=== PATIENT | male | born 1940 | race Caucasian/White ===

== ENCOUNTER 2017-08-04 20:34 | Emergency (ER) | payer OTHER, SELFPAY ==
[~2017-08-04] VITALS: Ht 177.8 cm; Wt 124.7 kg
[~2017-08-04 20:34] MED LIST: ACCUNEB1.25 MG/3; ACETAMINOPHEN325 M1 PO; ALBUTEROL INH; ALBUTEROL2.5 MG/31 INH; ALEVE220 M1 PO; ALLEGRA180 MG PO; AMBIEN 10 MG TA10 MG PO; AMITRIPTYLINE H25 M2 PO; AMOXICILLIN 50500 M1 PO; ANUSOL1 EACH RC; ASPIRIN EC81 M1; ASPIRIN EC81 M1 PO; ATORVASTATIN CA40 MG PO; AUGMENTIN 875875 MG PO; AZITHROMYCIN 2250 MG PO; BAYER CHEWABLE81 MG PO; BENADRYL ALLERG25 MG PO; BIAXIN 500 MG500 M2 PO; BRILINTA90 MG PO; BROVANA15 MCG/2 M INH; CEFTIN 250 MG250 MG PO; CHLORASEPTIC177 ML PO; CIPROFLOXACIN500 M3 PO; COLACE100 MG PO; DIAZEPAM 5 MG5 M1 PO; DICLOFENAC SODI75 M1 PO; DOXYCYCLINE 10100 MG PO; DUONEB 2.5-0.5 M3 ML INH; EFFIENT10 MG PO; FEXOFENADINE H180 MG PO; FLAGYL500 MG PO; FOLIC ACID1 MG PO; FUROSEMIDE 20 M20 M1 PO; HYDROCODON-ACE1 EAC2; IMODIUM ADVANC1 EAC1 PO; IRON325 PO; K-DUR10 ME1 PO; KLOR-CON 10 ER10 MEQ; KLOR-CON 1010 MEQ PO; LEVAQUIN 500 M500 M2 PO; LINZESS290 MCG PO; LISINOPRIL20 MG; LISINOPRIL20 MG PO; MEDROLDOSEPACK PO; MELATONIN 5 MG1 EAC1 PO; MELATONIN3 MG PO; MELATONIN5 M1 PO; METHADONE HCL5 MG PO; MIRALAX255 GM PO; MOM PO; MORPHINE SULFAT15 M3; MS CONTIN15 MG PO; MUCINEX TA600 MG/TA2 PO; MUCINEX600 MG PO; MULTIVITAMINS; MULTIVITAMINS PO; NEURONTIN 300300 M1 PO; NITROGLYCERIN0.4 MG SUBLING; OMEPRAZOLE40 MG; OXYCODONE HCL15 MG PO; OXYCODONE HCL5 M1 PO; OXYGEN; PEPCID40 MG PO; PHENERGAN-CODE120 ML PO; PREDNISONE 10 M10 M1; PREDNISONE 10 M10 M1 PO; PREDNISONE 10 M10 MG PO; PREDNISONE 20 M20 M1 PO; PREDNISONE 5 MG5 M1 PO; PRILOSEC40 MG PO; PRINIVIL20 MG; PRINIVIL20 MG PO; PROAIR HFA8.5 GM; PROAIR HFA8.5 GM INH; PROMETHEGAN25 MG RC; PROTONIX 20 MG20 M1 PO; PROTONIX40 MG PO; PROVENTIL; PULMICORT0.5 MG/21 INH; ROVIN-CF OF TA1 EACH PO; SENNA8.6 MG PO; SIMVASTATIN40 MG; SIMVASTATIN40 MG PO; SINGULAIR 10 MG10 M1 PO; SPIRIVA; SPIRIVA INH; TAMSULOSIN HCL0.4 M1 PO; TESSALON200 MG PO; TUSSIONEX PENN473 ML PO; VALIUM2 MG PO; VENLAFAXINE H37.5 M2 PO; VICODIN 5-5001 EACH; VITAMIN B-12250 MC2 PO; VITAMIN B-12500 MCG PO; WELLBUTRIN SR150 MG PO; ZEGERID 40 MG1 EACH PO; ZEGERID OTC 201 EACH PO; ZOCOR40 MG PO; ZOFRAN 4 MG ORAL4 M1 DIS; ZYVOX600 MG PO
[2017-08-04 21:12] LABS: URINE BILIRUBIN NEGATIVE (Negative); URINE BLOOD NEGATIVE (Negative); URINE CLARITY CLEAR; URINE COLOR YELLOW; URINE GLUCOSE-RANDOM NEGATIVE (Negative); URINE KETONES NEGATIVE (Negative); URINE LEUKOCYTES-REFLEX NEGATIVE (Negative); URINE NITRITE-REFLEX NEGATIVE (Negative); URINE PROTEIN NEGATIVE (Negative); URINE SPECIFIC GRAVITY >= 1.030 (1.005-1.030); URINE UROBILINOGEN 0.2 E.U./dl (0.2-1.0)
[2017-08-04 21:23] LABS: ABSOLUTE BASOPHILS 0.1 thou/uL (0.0-0.2); ABSOLUTE EOSINOPHILS 0.2 thou/uL (0.0-0.7); ABSOLUTE LYMPHOCYTES 1.3 thou/uL (0.8-5.3); ABSOLUTE MONOCYTES 0.6 thou/uL (0.0-1.2); BASOPHILS 0.6 %; EOSINOPHILS 1.5 %; HEMATOCRIT 38.9 % (42.0-52.0); HEMOGLOBIN 12.4 gm/dL (14.0-18.0); LYMPHOCYTES 13.1 %; MCH 26.7 pg (26.0-34.0); MCV 83.6 fL (80.0-100.0); MONOCYTES 5.5 %; MPV 9.2 fl. (7.2-11.1); NUCLEATED RBCS 0 /100WBC; PLATELET COUNT* 242 thou/uL (150-400); POLYS 79.3 %; RBC 4.65 mil/uL (4.50-6.00); RDW-CV 15.4 % (10.5-14.5); WBC 10.1 thou/uL (4.0-11.0)
[2017-08-04 21:27] LABS: CALCIUM 8.4 mg/dL (8.5-10.1); POTASSIUM 4.2 mmol/L (3.5-5.1)
[2017-08-04 21:32] LABS: ALBUMIN 3.5 g/dL (3.4-5.0); TOTAL BILIRUBIN 0.3 mg/dL (<0.1-1.0); TOTAL PROTEIN 7.4 g/dL (6.4-8.2)
[2017-08-05] MEDS ORDERED: CIPROFLOXACIN500 M1 PO (05:32)
[2017-08-05] MEDS ORDERED: HYDROCODONE-AP1 EAC6 PO (05:32)
[2017-08-05] MEDS ORDERED: FLAGYL500 MG PO (05:32)
[2017-08-05 05:48] LABS: CALCIUM 8.7 mg/dL (8.5-10.1); CREATININE 1.2 mg/dL (0.6-1.3); POTASSIUM 5.1 mmol/L (3.5-5.1)
[2017-08-05 06:41] VITALS: BP 130/74
== END 2017-08-05 06:45 | disposition home or self-care (01) ==
LOC: M.ERS 20:34
PROVIDERS: Emergency Medicine
DX: R33.9 Retention of urine, unspecified (principal); J44.9 Chronic obstructive pulmonary disease, unspecified; E78.5 Hyperlipidemia, unspecified; M19.90 Unspecified osteoarthritis, unspecified site; F41.0 Panic disorder [episodic paroxysmal anxiety]; Z86.14 Personal history of Methicillin resistant Staphylococcus aureus infection; Z91.030 Bee allergy status

== ENCOUNTER 2017-08-16 05:45 | Inpatient (IN) | payer OTHER, SELFPAY ==
[~2017-08-16] VITALS: Ht 177.8 cm; Wt 122.9 kg
[~2017-08-16 05:45] MED LIST changes: +CIPROFLOXACIN500 M1 PO; +HYDROCODONE-AP1 EAC6 PO
[2017-08-16 05:51] VITALS: BP 127/75
[2017-08-16 06:07] LABS: HEMATOCRIT 40.5 % (42.0-52.0); HEMOGLOBIN 12.9 gm/dL (14.0-18.0); MCH 26.4 pg (26.0-34.0); MCHC 31.9 g/dL (28.0-37.0); MCV 82.8 fL (80.0-100.0); MPV 8.6 fl. (7.2-11.1); NUCLEATED RBCS 0 /100WBC; PLATELET COUNT* 346 thou/uL (150-400); RBC 4.89 mil/uL (4.50-6.00); RDW-CV 14.8 % (10.5-14.5); WBC 12.3 thou/uL (4.0-11.0)
[2017-08-16 06:17] LABS: CALCIUM 9.4 mg/dL (8.5-10.1); CREATININE 1.4 mg/dL (0.6-1.3); POTASSIUM 3.9 mmol/L (3.5-5.1)
[2017-08-16 06:29] LABS: ALBUMIN 3.8 g/dL (3.4-5.0); TOTAL BILIRUBIN 0.4 mg/dL (<0.1-1.0); TOTAL PROTEIN 8.2 g/dL (6.4-8.2)
[2017-08-16 06:51] LABS: ABSOLUTE EOSINOPHILS 0.1 thou/uL (0.0-0.7); ABSOLUTE LYMPHOCYTES 1.2 thou/uL (0.8-5.3); ABSOLUTE MONOCYTES 0.4 thou/uL (0.0-1.2); ABSOLUTE NEUTROPHILS 10.6 thou/uL (1.6-8.1); ANISOCYTOSIS 1+; PLATELET ESTIMATE ADEQUATE; POIKILOCYTOSIS 1+
--- NOTE | 2017-08-16 07:42 | NUR ---
CONTINUES TO C/O NAUSEA/VOMITING AFTER RECEIVING ZOFRAN. DR. ALBERTO WAS NOTIFIED. PHENERGAN GIVEN IV ORDERED. PT REFUSES PAIN MEDS BECAUSE "THEY MAKE ME CONSTIPATED".
--- NOTE | 2017-08-16 08:17 | NUR ---
PER PT, NOTIFIED S.O. STAS IGLESIAS (AT [phone]) OF PLANNED ADMISSION INTO HOSP 7 UPDATED ON CONDITION.
[2017-08-16 09:05] VITALS: BP 122/80
[2017-08-16 15:56] VITALS: BP 131/82
[2017-08-16 20:20] VITALS: BP 90/36
--- NOTE | 2017-08-16 22:09 | NUR ---
PATIENT BLOOD PRESSURE LOW 90/34 AND DECREASED 02 SAT OF 85% ON 3L. 02 INCREASED TO 4L. RESPIRATORY NOTIFIED OF INCREASE IN 02. DR. JEFF NOTIFIED OF DECREASED 02 SATURATION AND BP. NO NEW ORDERS AT THIS TIME. PATIENT INSTRUCTED TO USE CALL LIGHT WHEN NEEDING ASSISTANCE. HOURY ROUNDS MADE. NURSING TO CONTINUE MONITORING.
[2017-08-17 04:31] LABS: HEMATOCRIT 36.7 % (42.0-52.0); HEMOGLOBIN 11.4 gm/dL (14.0-18.0); MCH 26.1 pg (26.0-34.0); MCV 84.2 fL (80.0-100.0); MPV 9.2 fl. (7.2-11.1); NUCLEATED RBCS 0 /100WBC; PLATELET COUNT* 294 thou/uL (150-400); RBC 4.35 mil/uL (4.50-6.00); RDW-CV 15.2 % (10.5-14.5)
[2017-08-17 04:37] LABS: WBC 28.7 thou/uL (4.0-11.0)
--- NOTE | 2017-08-17 04:37 | NUR ---
NURSE WENT IN TO CHECK ON PATIENT AND OBSERVED NG TUBE LAYING ON PATIENTS CHEST. NURSE ATTEMPTED TO RE INSERT NEW NG TUBE AND PATIENT PULLED IT OUT AND REFUSED TO HAVE IT PUT BACK IN. DR WILL BE NOTIFIED IN THE AM. PATIENT IS RESTING AT THIS TIME WITH NO C/O. PATIENT INSTRUCTED TO USE CALL LIGHT WHEN NEEDING ASSISTANCE. HOURLY ROUNDS MADE. WILL CONTINUE WITH PLAN OF CARE AND NURSING TO MONITOR.
[2017-08-17 04:41] VITALS: BP 115/33
[2017-08-17 05:40] LABS: ABSOLUTE LYMPHOCYTES 2.6 thou/uL (0.8-5.3); ABSOLUTE MONOCYTES 1.7 thou/uL (0.0-1.2); ABSOLUTE NEUTROPHILS 24.4 thou/uL (1.6-8.1)
[2017-08-17 05:41] LABS: ANISOCYTOSIS 1+; PLATELET ESTIMATE ADEQUATE; POIKILOCYTOSIS 1+
--- NOTE | 2017-08-17 08:03 | NUR ---
PATIENT IS ALERT AND ORIENTED X 4. VSS ON 4L 02 VIA NASAL CANNULA. NO C/O PAIN. NG TUBE REMAINS OUT AT THIS TIME D/T PATIENT REFUSING TO HAVE NG RE-INSERTED. 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 PATIENT INSTRUCTED TO USE CALL LIGHT WHEN NEEDING ASSISTANCE. HOURY ROUNDS MADE. WILL CONTINUE WITH PLAN OF CARE AND NURSING TO MONITOR.
[2017-08-17 08:12] VITALS: BP 113/43
[2017-08-17 12:43] LABS: ICTOTEST (BILI CONFIRMATORY) Negative (Negative); URINE BILIRUBIN 1+ (Negative); URINE BLOOD TRACE (Negative); URINE CLARITY SL CLOUDY; URINE COLOR BROWN; URINE GLUCOSE-RANDOM NEGATIVE (Negative); URINE KETONES TRACE (Negative); URINE LEUKOCYTES-REFLEX NEGATIVE (Negative); URINE NITRITE-REFLEX NEGATIVE (Negative); URINE PROTEIN 1+ (Negative); URINE SPECIFIC GRAVITY >= 1.030 (1.005-1.030); URINE UROBILINOGEN 0.2 E.U./dl (0.2-1.0)
[2017-08-17 12:48] LABS: HYALINE CASTS >10 Many /LPF (None Seen)
[2017-08-17 12:49] LABS: BACTERIA-REFLEX 1-9 Few /HPF (None Seen); CRYSTALS None Seen /LPF (None Seen); FINE GRANULAR CASTS 0-3 Few /LPF (None Seen); SQUAMOUS NONE SEEN /LPF (0-3); URINE RBC None Seen /HPF (0-2); URINE WBC-REFLEX 6-15 Few /HPF (0-5)
--- NOTE | 2017-08-17 15:41 | NUR ---
PT.LYING IN BED. STATED HE LIVES WITH HIS EX . THEY ARE GOOD FRIENDS. HE HAS A WALKER,O2 AND NEBULIZER AT HOME, THROUGH [employer]. HE HAS A REGULAR CONCENTRATOR AND A PORTABLE CONCENTRATOR. HE FEELS HE IS PRETTY INDEPENDENT AT HOME. 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 FACE SHEET SAYS LYSSA WILL PRIMARY AND ABDIAS SECONDARY. CALLED ADMITTING TO LEAVE A MESSAGE ABOUT THIS.
[2017-08-17 16:01] VITALS: BP 118/57
--- NOTE | 2017-08-17 17:58 | NUR ---
ASSUMED CARE OF PATIENT AFTER MORNING REPORT. ALERT AND ORIENTED X4. ASSESSMENT COMPLETED AND CHARTED. VSS ON 4 LITERS 02. PATIENT HAS HAD NO COMPLAINTS OF PAIN OR NAUSEA THIS SHIFT. PATIENT HAD SUPPOSITORY AND PRODUCED SEVERAL BOWEL MOVEMENTS BUT OBSTRUCTION STILL EXHISTS. PATIENT TO REMAIN NPO UNTIL FURTHER OTICE BY GI. HOURLY ROUNDS HAVE BEEN MAINTAINED. CALL LIGHT IS WITHIN REACH. NURSING WILL CONTINUE TO MONITOR.
[2017-08-17 20:00] VITALS: BP 109/89
--- NOTE | 2017-08-18 05:11 | NUR ---
ASSUMED CARE OF PATIENT AT APPROXIMATELY 1999. UPON FIRST ASSESSMENT, PATIENT HAD NO PERIPHERAL ACCESS. EVEN WITH SEVERAL ATTEMPTS FROM NURSING, PATIENT REFUSED ANY OTHER ATTEMTPS AT PERIPHERAL ACCESS. PER GI, DR. NGO CHANGED ALL IV ANTIBIOTICS TO ORAL, DC'D ALL FLUIDS, AND ADVANCED PATIENT'S DIET TO CLEAR LIQUIDS D/T PATIENT BEING ABLE TO ACTIVELY HAVE BOWEL MOVEMENTS. PATIENT HAS HAD NO C/O PAIN OR DISCOMFORT OVERNIGHT, AND IS HOPEFUL THAT HE WILL BE DISCHARGED TODAY (08/18/17). HOURLY ROUNDS PERFORMED. NURSING TO FOLLOW-UP NECESSARY. ALL FALL PRECAUTIONS IN PLACE, INCLUDING CALL LIGHT WITHIN REACH. WILL CONTINUE TO MONITOR CLOSELY.
[2017-08-18 08:42] VITALS: BP 127/66
[2017-08-18 16:34] VITALS: BP 127/66
[2017-08-18] MEDS ORDERED: LEVAQUIN 500 M500 M2 PO (16:42)
[2017-08-18] MEDS ORDERED: FLAGYL500 MG PO (16:42)
[2017-08-18] MEDS ORDERED: TYLENOL325 MG PO (16:44)
--- NOTE | 2017-08-18 17:09 | NUR ---
ASSUMED CARE OF PATIENT AFTER REPORT THIS MORNING. PATIENT AWAKE, ALERT, AN DORIENTED APPROPRIATELY. PHYSICAL ASSESSMENT COMPLETED AND CHARTED. NO COMPLAINTS OF PAIN. VITAL SIGNS STABLE. OXYGEN SATURATION WITHIN NORMAL LIMITS ON 4 LPM PER NASAL CANULA. SCHEDULED MEDICATIONS GIVEN, SEE EMAR FOR DOCUMENTATION. PATIENT TRANSFERS AND AMBULATES INDEPENDENTLY IN ROOM. RECEIVED ORDERS TO DISCHARGE PATIENT. DISCHARGE PAPERWORK COMPLETED AND SIGNED BY ALL APPROPRIATE PARTIES, ON PATIENT'S CHART. IV DISCONTINUED. PATIENT DISCHARGING AT THIS TIME. ESCORTED TO PARKING LOT BY JOSE ALLEN.
--- NOTE | 2017-08-31 19:58 | CON ---
[address] [address] CONSULTATION Name: LELE NOLAN Room: [address] IN M.R.#: [id number] Admission: 08/16/17 Attend Phys: Ramiro Vega Discharge: 08/18/17 Date of : 40 Report #: [id number] THIS REPORT FOR: //name// CC: Mickey Paige MD [facility] Nghia Scanlon DO DATE OF SERVICE: 08/16/2017 ADDENDUM REFERRING PHYSICIAN: Ck Scanlon DO I was unable to see the patient for consultation on 08/16/2017, but I have been able to review his records regarding his hospital stay. For this reason, I will dictate an addendum that I deferred to my partner, Dr. Stephen, but that was not been done. The patient is a 77-year-old white male well known to me from previous evaluation back in summer who was referred to us for evaluation of iron deficiency anemia of uncertain etiology. 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 However, the patient did not wish to proceed with colonoscopy as he has spoken with Dr. Paige who had apparently advised against it in light of the fact that he had previous coronary stent just a few months prior and could not come off the Effient for the procedure. However, I told the patient that if we did his colonoscopy that I have no intention of stopping his Effient for the procedure, but he still does not wish to proceed with the same. He has since been placed on iron and his blood counts are improved, but is likely related to the fact he has been on iron replacement. He is now admitted to the hospital with complaints of rather severe abdominal pain associated with nausea, vomiting. Has an abnormal CAT scan suggestive of distal small bowel obstruction or possibly proximal colonic obstruction. I reviewed the patient's CT scan and he had a large amount of stool within the cecum without an obvious mass or tumor. He is still anemic with hemoglobin 11.4 g/dL, but his iron levels are not performed. He is currently on NG tube in place at this time and not comfortable with the same. We will proceed with following while in the hospital with recommendations for him to undergo evaluation of the lower GI tract, but again, I suspect he will not wish to proceed with the same as he has refused this in the past. If he is agreeable to same, he will need Cardiology approval for the same and I would certainly not take him off his Effient in any event. I am not going to give her anything large nor something small to evaluate the source of iron deficiency anemia. Otherwise, [place] [address] CONSULTATION Name: LELE NOLAN Room: [address]#: [id number] Admission: 08/16/17 Attend Phys: Ramiro Vega Discharge: 08/18/17 Date of : 40 Report #: [id number] to continue bowel regimen that he is taking at this point in time and follow up with us as needed. <ELECTRONICALLY SIGNED> By: Mikhail Holloway DO 08/31/17 1958 1754 0113Gdhara Holloway DO /nt
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
--- NOTE | 2017-09-30 11:02 | CON ---
[address] [address] CONSULTATION Name: LELE NOLAN Room: [address] IN M.R.#: [id number] Admission: 08/16/17 Attend Phys: Ramiro Vega Discharge: 08/18/17 Date of : 40 Report #: [id number] THIS REPORT FOR: //name// CC: Nghia Scanlon DATE OF SERVICE: 08/16/2017 ADDENDUM: This is an addendum to a consultation that was done by our nurse practitioner, but was seen the following day by Dr. Stephen. Although the initial consultation was done by our nurse practitioner, Kelly Gillette, the patient was actually seen in consultation by my partner, Dr. Stephen, on 08/17/2017. Please see his notes for further details. <ELECTRONICALLY SIGNED> By: Mikhail Holloway DO 09/30/17 1102 1657 1917Mikhail Holloway DO /nt
== END 2017-08-18 17:12 | disposition home or self-care (01) | DRG 177 ==
LOC: M.ERS 05:45 → M.ORTHSURG 08:07 → M.TBA-ER 08:07 → M.ORTHSURG 08:26
PROVIDERS: Emergency Medicine; ADMIT Internal Medicine
DX: J69.0 Pneumonitis due to inhalation of food and vomit (principal); J96.01 Acute respiratory failure with hypoxia; N17.0 Acute kidney failure with tubular necrosis; A04.9 Bacterial intestinal infection, unspecified; K56.609 Unspecified intestinal obstruction, unspecified as to partial versus complete obstruction; J44.0 Chronic obstructive pulmonary disease with (acute) lower respiratory infection; K52.9 Noninfective gastroenteritis and colitis, unspecified; M16.12 Unilateral primary osteoarthritis, left hip; R14.0 Abdominal distension (gaseous); M54.9 Dorsalgia, unspecified; D72.829 Elevated white blood cell count, unspecified; G89.29 Other chronic pain; E78.5 Hyperlipidemia, unspecified; M47.9 Spondylosis, unspecified; Z87.11 Personal history of peptic ulcer disease; Z88.8 Allergy status to other drugs, medicaments and biological substances; Z95.5 Presence of coronary angioplasty implant and graft; I25.2 Old myocardial infarction; Z87.891 Personal history of nicotine dependence; Z79.01 Long term (current) use of anticoagulants; Z82.49 Family history of ischemic heart disease and other diseases of the circulatory system; Z83.6 Family history of other diseases of the respiratory system

== ENCOUNTER 2017-08-26 08:54 | Inpatient (IN) | payer OTHER, SELFPAY ==
[~2017-08-26] VITALS: Ht 177.8 cm; Wt 124.3 kg
[2017-08-26] VITALS (9 sets, daily range): BP systolic 83–166; BP diastolic 39–130
--- NOTE | ~2017-08-26 | PROC ---
[address] [address] PROCEDURE REPORT Name: LELE NOLAN Room: [address] IN M.R.#: [id number] Admission: 08/26/17 Attend Phys: Joey Marshall, Discharge: Date of : 40 Report #: [id number] THIS REPORT FOR: //name// For GI report, please see Provation report in Perceptive 7 content. By: [id number] Records Staff [facility] /ISABELL
[~2017-08-26 08:54] MED LIST changes: +TYLENOL325 MG PO
[2017-08-26] MEDS ORDERED: FLOMAX0.4 MG PO (09:12)
[2017-08-26 09:30] LABS: HEMATOCRIT 40.9 % (42.0-52.0); HEMOGLOBIN 12.9 gm/dL (14.0-18.0); MCH 26.4 pg (26.0-34.0); MCHC 31.6 g/dL (28.0-37.0); MCV 83.8 fL (80.0-100.0); MPV 9.3 fl. (7.2-11.1); NUCLEATED RBCS 0 /100WBC; PLATELET COUNT* 408 thou/uL (150-400); RBC 4.88 mil/uL (4.50-6.00); RDW-CV 15.1 % (10.5-14.5); WBC 18.6 thou/uL (4.0-11.0)
[2017-08-26 09:37] LABS: ANION GAP 8 mmol/L (7-16); BUN 16 mg/dL (7-18); CALCIUM 9.1 mg/dL (8.5-10.1); CHLORIDE 103 mmol/L (98-107); CO2 34 mmol/L (21-32); CREATININE 2.6 mg/dL (0.6-1.3); GLUCOSE 154 mg/dL (70-99); POTASSIUM 3.9 mmol/L (3.5-5.1); SODIUM 145 mmol/L (136-145)
[2017-08-26 09:48] LABS: ALBUMIN 3.6 g/dL (3.4-5.0); ALKALINE PHOSPHATASE 53 U/L (46-116); LIPASE 67 U/L (73-393); SGOT 12 U/L (15-37); SGPT 11 U/L (30-65); TOTAL BILIRUBIN 0.5 mg/dL (<0.1-1.0); TROPONIN-I LEVEL <0.06 ng/mL (<0.06)
[2017-08-26 10:37] LABS: ABSOLUTE LYMPHOCYTES 2.6 thou/uL (0.8-5.3); ABSOLUTE MONOCYTES 1.3 thou/uL (0.0-1.2); ABSOLUTE NEUTROPHILS 14.7 thou/uL (1.6-8.1); CLUMPED PLTS FEW; PLATELET ESTIMATE INCREASED
[2017-08-27] VITALS (7 sets, daily range): BP systolic 88–114; BP diastolic 46–62
[2017-08-27 08:10] LABS: HEMATOCRIT 36.5 % (42.0-52.0); HEMOGLOBIN 11.4 gm/dL (14.0-18.0); MCH 26.1 pg (26.0-34.0); MCHC 31.4 g/dL (28.0-37.0); MCV 83.1 fL (80.0-100.0); MPV 9.3 fl. (7.2-11.1); RBC 4.39 mil/uL (4.50-6.00); RDW-CV 15.2 % (10.5-14.5)
[2017-08-27 09:24] LABS: WBC 41.5 thou/uL (4.0-11.0)
[2017-08-27 09:25] LABS: ALBUMIN 2.9 g/dL (3.4-5.0); CALCIUM 7.7 mg/dL (8.5-10.1); MAGNESIUM 1.4 mg/dL (1.8-2.4); TOTAL BILIRUBIN 0.4 mg/dL (<0.1-1.0)
[2017-08-27 09:27] LABS: CREATININE 4.5 mg/dL (0.6-1.3)
--- NOTE | 2017-08-27 10:56 | EKG ---
[place] [address] ELECTROCARDIOGRAM REPORT Name: LELE NOLAN Room: [address] ADM IN .R.#: [id number] Admission: 08/26/17 Attend Phys: Joey Marshall, Discharge: Date of : 40 Report #: [id number] THIS REPORT FOR: //name// [facility] ED Test Date: 2017-08-26 Test Time: 08:57:58 Pat Name: LELE NOLAN Department: Room: [facility] Gender: M Urogynecology Physician: MS : [id number] Requested By: Abdi Bolivar Order Number: [id number] MD: Joe Laura Measurements Intervals [place] Rate: 97 P: 57 IA: 160 QRS: -87 QRSD: 133 T: 46 QT: 395 QTc: 502 Interpretive Statements Sinus rhythm Right bundle branch block Inferior infarct, old Compared to ECG 01/19/2017 10:26:31 Right bundle-branch block now present Myocardial infarct finding still present Electronically Signed On 08-27-2017 10:56:03 CENSUS T[employer]ER by Joe Laura [email or web address] <ELECTRONICALLY SIGNED> By: Joe Laura MD, [facility] 08/27/17 1056 0857 [id number] Joe Laura MD, [facility] /EPI
[2017-08-28] VITALS: BP 108/66
[2017-08-28 04:27] VITALS: BP 102/49
[2017-08-28 05:50] LABS: HEMATOCRIT 32.2 % (42.0-52.0); HEMOGLOBIN 10.2 gm/dL (14.0-18.0); MCH 26.3 pg (26.0-34.0); MCHC 31.7 g/dL (28.0-37.0); MCV 83.1 fL (80.0-100.0); MPV 9.3 fl. (7.2-11.1); RBC 3.87 mil/uL (4.50-6.00); RDW-CV 15.1 % (10.5-14.5)
[2017-08-28 05:57] LABS: WBC 24.6 thou/uL (4.0-11.0)
[2017-08-28 06:02] LABS: CALCIUM 7.5 mg/dL (8.5-10.1); CREATININE 3.7 mg/dL (0.6-1.3); INR 1.3; POTASSIUM 3.7 mmol/L (3.5-5.1); PROTIME 12.2 Seconds (9.20-11.50)
--- NOTE | 2017-08-28 07:49 | CON ---
[address] [address] CONSULTATION Name: LELE NOLAN Room: [address] IN .R.#: [id number] Admission: 08/26/17 Attend Phys: Joey Marshall, Discharge: Date of : 40 Report #: [id number] THIS REPORT FOR: //name// CC: Nghia Díaz Joey Marshall DATE OF SERVICE: 08/27/2017 ATTENDING PHYSICIAN: Joey Marshall MD. REASON FOR EVALUATION: Marked leukocytosis. HISTORY OF PRESENT ILLNESS: Chart reviewed, patient examined. This is a 77-year-old with a significant medical history including vasculopathy, was actually hospitalized a couple of weeks ago with abdominal pain, enteritis and small-bowel obstruction, returned today with a similar type complaints, nausea, emesis with a fairly abrupt onset the night prior to admission. Did become lightheaded. On evaluation by EMS, was found to be hypotensive. It is notable he has not had a bowel movement either. He has O2 requiring COPD, typically 3-4 liters of oxygen, was admitted and an NG was placed. He had a large volume output. Initial white count was mildly elevated at 18.6; however, repeat this morning was up to 41.5. He is generally lucid, in moderate distress. Does admit to abdominal related pain and discomfort. He is afebrile. Empirically started on ceftriaxone and levofloxacin. ALLERGIES: TO BEE STINGS. CURRENT MEDICATIONS: Include now Zosyn, ipratropium albuterol inhaler, folic acid, cyanocobalamin, venlafaxine, prasugrel, tamsulosin, gabapentin, enoxaparin, melatonin, montelukast, Levaquin 750 every other day. PAST MEDICAL HISTORY: Multiple orthopedic surgeries, degenerative disk disease involving cervical spine, arthritis, COPD, peptic ulcer disease, hyperlipidemia, diverticulitis, history of degenerative joint disease, ischemic colitis, Darier disease, history of myocardial infarction and depression. SOCIAL HISTORY: Former smoker. No ethanol. FAMILY HISTORY: Noncontributory. REVIEW OF SYSTEMS: As above. PHYSICAL EXAMINATION: VITAL SIGNS: Temperature 98, pulse 85, respirations 18, blood pressure is 88/46. SKIN: Warm, dry[place] [address] CONSULTATION Name: LELE NOLAN Room: [address]#: [id number] Admission: 08/26/17 Attend Phys: Joey Marshall, Discharge: Date of : 40 Report #: [id number] HEENT: He has got nasal cannula oxygen in place. NECK: Supple. LUNGS: A few scattered coarse breath sounds, diminished overall. HEART: Regular and distant. I do not appreciate a murmur. ABDOMEN: Distended, although is not overtly taut, not particularly tender. I do not think there are any peritoneal signs. GENITOURINARY AND RECTAL: Deferred. LABORATORY DATA: Lactic acid 1.4, it is actually down from 2.5 on admission. Electrolytes: Sodium 145, potassium 4.0, chloride 103, bicarbonate is 34, BUN and creatinine 30 and 4.5, it is up from 2.6 on admission, glucose of 128. LFTs unremarkable. Albumin 2.9, total protein 7.0. Estimated GFR of 13. CBC: White count of 41.5, it is up from 18.6, H and H 11.4 and 36.5, platelets of 315. Blood cultures sterile thus far. Plain film of the abdomen findings consistent with distal small-bowel obstruction. CT abdomen and pelvis, diffuse dilated fluid filled loops of small bowel, prominent stool and some fluid within the cecum as well as relative transition of decompressed colon at the level of proximal ascending colon. No obstructing mass. ASSESSMENT: Marked leukocytosis in a patient with a clear intestinal dysfunction, probably distal small-bowel obstruction, has history of ischemic colitis. I would be concerned that it does have ongoing issues with ischemia, has known vasculopathy with coronary artery disease. Typically with marked elevations in the white count, I am concerned with intra-abdominal processes. PLAN: I think it is reasonable to pare back antibiotic therapy. I will discontinue the ceftriaxone, continue the Zosyn and fluconazole for now. Certainly at risk for other nosocomial related infectious complications such as aspiration. We will have to monitor expectantly. Overall, he appears to be a significant risk of having clinical deterioration and certainly at risk of any surgical intervention. <ELECTRONICALLY SIGNED> By: Lele Sinclair MD 08/28/17 0749 1119 1906Lele Sinclair MD /nt
[2017-08-28 07:50] VITALS: BP 123/101
[2017-08-28 12:00] VITALS: BP 119/61
[2017-08-28 16:16] VITALS: BP 102/48
[2017-08-28 20:00] VITALS: BP 102/45
[2017-08-29] VITALS: BP 106/52; BP 116/52
[2017-08-29 04:00] VITALS: BP 116/52
[2017-08-29 05:29] LABS: HEMATOCRIT 31.1 % (42.0-52.0); HEMOGLOBIN 10.1 gm/dL (14.0-18.0); MCH 26.8 pg (26.0-34.0); MCHC 32.4 g/dL (28.0-37.0); MCV 82.5 fL (80.0-100.0); MPV 9.5 fl. (7.2-11.1); RBC 3.78 mil/uL (4.50-6.00); RDW-CV 15.2 % (10.5-14.5); WBC 15.3 thou/uL (4.0-11.0)
[2017-08-29 05:44] LABS: ALBUMIN 2.3 g/dL (3.4-5.0); CALCIUM 7.6 mg/dL (8.5-10.1); POTASSIUM 3.5 mmol/L (3.5-5.1); TOTAL BILIRUBIN 0.3 mg/dL (<0.1-1.0); TOTAL PROTEIN 6.1 g/dL (6.4-8.2)
[2017-08-29 08:55] VITALS: BP 129/49
[2017-08-29 12:12] VITALS: BP 125/58
--- NOTE | 2017-08-29 16:13 | CON ---
[address] [address] CONSULTATION Name: LELE NOLAN Room: [address] IN ..#: [id number] Admission: 08/26/17 Attend Phys: Joey Marshall, Discharge: Date of : 40 Report #: [id number] THIS REPORT FOR: //name// CC: Nghia Díaz Joey Marshall MD DATE OF SERVICE: 08/27/2017 REQUESTING PHYSICIAN: Joey Marshall MD HISTORY OF PRESENT ILLNESS: This is a 77-year-old male who was just recently discharged from hospital a week ago. The patient's diagnosis was small-bowel obstruction. He appears once again to hospital with symptoms of nausea, vomiting and acute renal failure with creatinine above 4. The CT is suggestive of small-bowel obstruction as there are multiple air fluid levels noted in the small bowel. NG tube has been placed and the patient is lying comfortably. He denies any abdominal pain. His abdomen is also soft. PAST MEDICAL HISTORY: Significant for history of diverticulitis, colonic ischemia, previous GI bleeds, dyslipidemia, COPD, back surgery, hernia repair, history of SC and coronary artery stenting. ALLERGIES: No known drug allergy. MEDICATIONS: Please refer to hospital MAR. SOCIAL HISTORY: The patient denies alcohol use. He has remote history of tobaccoism, but does not smoke anymore. FAMILY HISTORY: Negative for GI malignancy. PHYSICAL EXAMINATION: VITAL SIGNS: Reveals blood pressure of 114/62, respirations 18, pulse 88, temperature 98.2. LUNGS: Clear. CARDIOVASCULAR: Regular. ABDOMEN: Soft, nontender, nondistended. Bowel sounds are positive. NG tube is in place to intermittent suction. LABORATORY DATA: Reveal sodium of 145, potassium 4.0, BUN is 30, creatinine 4.5. AST 13, ALT 10, alkaline phosphatase 43. Magnesium is 1.4. Calcium 7.7, total bilirubin is 0.4. INR is 1.2. WBC is 41.5 with hemoglobin of 11.4 and platelet of 315. IMAGING: [place] [address] CONSULTATION Name: LELE NOLAN Room: [address] IN [facility].#: [id number] Admission: 08/26/17 Attend Phys: Joey Marshall, Discharge: Date of : 40 Report #: [id number] ASSESSMENT AND PLAN: The patient with recurrent small-bowel obstruction, who has NG placed and appears comfortable as his abdomen is soft. He also has acute renal failure. We will continue monitoring him by ordering KUB to follow tomorrow. We will make further recommendation based on the biopsy results. <ELECTRONICALLY SIGNED> By: Shereen Stephen MD 08/29/17 1613 1702 1716Farid Crystal Stephen MD /nt
[2017-08-29 20:00] VITALS: BP 132/52
[2017-08-30] VITALS: BP 124/57
[2017-08-30 04:00] VITALS: BP 156/71
[2017-08-30 08:15] VITALS: BP 127/60
[2017-08-30 12:07] VITALS: BP 137/64
--- NOTE | 2017-08-30 12:47 | CON ---
[address] [address] CONSULTATION Name: LELE NOLAN Room: [address] IN .R.#: [id number] Admission: 08/26/17 Attend Phys: Joey Marshall, Discharge: Date of : 40 Report #: [id number] THIS REPORT FOR: //name// CC: Nghia Marshall DATE OF SERVICE: 08/29/2017 CARDIOLOGY CONSULTATION HISTORY OF PRESENT ILLNESS: The patient is a 77-year-old single white male who I was asked to see in the hospital today because of a history of coronary artery disease. The patient has had multiple hospitalizations here at [facility] through the years. He has a long history of GI bleeding felt to be secondary to ischemic colitis. He was admitted here in 2009 with GI bleeding. He is felt to have diverticulitis as well. He is also overweight and has chronic back pain. He has been to the pain clinic on numerous occasions. He ambulates with a walker. The patient was here in July 2016 with pneumonia. He has a history of COPD and is on chronic oxygen. He then presented in September 2016. He was at home when he developed chest pain. He underwent a stress test that was abnormal. He was seen by Dr. Paige. Dr. Trinidad performed a cardiac catheterization on 10/18/2016. He was found to have 75% and 90% stenosis of the LAD. He had 2 drug-eluting stents placed. He also had 90% stenosis of the posterolateral branch of circumflex and had a drug-eluting stent placed. He has actually done well since that time. He last saw Dr. Paige in May. Because of his history of GI bleeding, he was taken off of aspirin and continued on Plavix by himself. He does have occasional chest pain, although it does occur very often. He does get short of breath with exertion. He has had no palpitations. He presented 3 days ago with nausea and vomiting. Denied any diarrhea or bleeding. He was seen by the GI service. He is felt to have a partial small bowel obstruction. He is scheduled for colonoscopy tomorrow. I was asked to see him for preprocedure consultation. PAST MEDICAL HISTORY: Otherwise significant for cervical spine fusion, hernia repair, knee arthroscopy. He has a history of hyperlipidemia. No history of diabetes or hypertension. He has COPD, on chronic oxygen. MEDICATIONS: He uses a ProAir inhaler, albuterol, Lipitor, Pulmicort, clopidogrel, Valium, iron, Neurontin, Mucinex, Singulair, oxycodone, Effexor. ALLERGIES: He has no known drug allergies. FAMILY HISTORY: Negative for heart disease. SOCIAL HISTORY: He is , although he [place] [address] CONSULTATION Name: LELE NOLAN Room: [address] IN [facility]#: [id number] Admission: 08/26/17 Attend Phys: Joey Marshall, Discharge: Date of : 40 Report #: [id number] [place], [place]. 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 He has a history of alcohol abuse, but no longer abuses alcohol. Quit smoking in 2009. REVIEW OF SYSTEMS: He is overweight, standing 5 feet 10 inches and weighing 275 pounds. He has no history of stroke. He has COPD. No history of peptic ulcer disease, liver disease, kidney disease, cancer, psychiatric illness. PHYSICAL EXAMINATION: GENERAL: Revealed a large, elderly male lying in bed. He appeared in no distress. VITAL SIGNS: Blood pressure 120/60, pulse 70, he is afebrile. HEENT: He is anicteric. Conjunctivae pink. Mucous membranes moist. NECK: Neck veins do not appear distended. No carotid bruits. CHEST: Revealed expiratory wheezes. CARDIOVASCULAR: Regular rate and rhythm. ABDOMEN: Obese, soft, nontender. EXTREMITIES: Had trace edema. Dorsalis pedis pulse cannot be palpated. SKIN: Cool and dry. NEUROLOGIC: Nonfocal. His ECG showed a sinus rhythm, evidence of previous inferior infarction with a right bundle branch block. Workup, he had an echocardiogram last September that showed ejection fraction of 60%, no significant valvular abnormality. Recent workup during this hospitalization included a chest x-ray that showed atelectasis. No pulmonary edema. Carotid Doppler study in November 2016, bilateral carotid plaque, but no high grade stenosis. LABORATORY DATA: Sodium 146, BUN 31, creatinine 2.0. Liver function studies were normal. Troponin 0.06. White blood cell count 15.3, hemoglobin 10.1. IMPRESSION AND RECOMMENDATIONS: 1. Coronary artery disease. The patient had previous drug-eluting stents placed 10 months ago. The patient is only on Plavix. Since it has been more than 6 months, I think it is reasonable to hold the Plavix at this time for colonoscopy. I would then resume Plavix after his procedure. I believe his risk for cardiac complications from this procedure is low at this time. 2. Chronic obstructive pulmonary disease. The patient is on chronic oxygen. 3. Colitis. The patient is scheduled for colonoscopy. I believe his greatest risk for periprocedural complication is secondary to his large size, age and obesity. [address] [place] [address] CONSULTATION Name: LELE NOLAN Room: [address] IN M.R.#: [id number] Admission: 08/26/17 Attend Phys: Joey Marshall, Discharge: Date of : 40 Report #: [id number] 4. Hyperlipidemia. The patient is on a statin drug. 5. Chronic back pain. The patient is followed in the pain clinic. <ELECTRONICALLY SIGNED> By: Joe Laura MD, FACC 08/30/17 1247 1706 0037Dajosue Laura MD, FACC /nt
[2017-08-30 15:11] LABS: ABSOLUTE EOSINOPHILS 0.1 thou/uL (0.0-0.7); ABSOLUTE LYMPHOCYTES 0.9 thou/uL (0.8-5.3); ABSOLUTE NEUTROPHILS 6.9 thou/uL (1.6-8.1); BASOPHILS 0.5 %; EOSINOPHILS 1.6 %; HEMATOCRIT 29.3 % (42.0-52.0); HEMOGLOBIN 9.2 gm/dL (14.0-18.0); LYMPHOCYTES 10.3 %; MCH 26.5 pg (26.0-34.0); MCHC 31.6 g/dL (28.0-37.0); MONOCYTES 11.1 %; MPV 9.6 fl. (7.2-11.1); NUCLEATED RBCS 0 /100WBC; PLATELET COUNT* 214 thou/uL (150-400); POLYS 76.5 %; RBC 3.48 mil/uL (4.50-6.00); RDW-CV 15.3 % (10.5-14.5); WBC 9.1 thou/uL (4.0-11.0)
[2017-08-30 15:17] LABS: CALCIUM 7.7 mg/dL (8.5-10.1); CREATININE 1.4 mg/dL (0.6-1.3); MAGNESIUM 1.6 mg/dL (1.8-2.4); POTASSIUM 3.7 mmol/L (3.5-5.1)
[2017-08-30 15:37] LABS: CLUMPED PLTS OCCASIONAL; PLATELET ESTIMATE ADEQUATE
[2017-08-30 20:00] VITALS: BP 139/55
[2017-08-31] VITALS: BP 136/55
[2017-08-31 08:33] VITALS: BP 144/61
[2017-08-31 10:44] LABS: ABSOLUTE EOSINOPHILS 0.2 thou/uL (0.0-0.7); ABSOLUTE LYMPHOCYTES 1.2 thou/uL (0.8-5.3); ABSOLUTE MONOCYTES 0.9 thou/uL (0.0-1.2); ABSOLUTE NEUTROPHILS 5.5 thou/uL (1.6-8.1); BASOPHILS 0.5 %; EOSINOPHILS 2.6 %; HEMATOCRIT 29.8 % (42.0-52.0); HEMOGLOBIN 9.6 gm/dL (14.0-18.0); LYMPHOCYTES 14.9 %; MCH 26.6 pg (26.0-34.0); MCHC 32.1 g/dL (28.0-37.0); MCV 82.8 fL (80.0-100.0); MONOCYTES 11.9 %; MPV 8.4 fl. (7.2-11.1); NUCLEATED RBCS 0 /100WBC; PLATELET COUNT* 266 thou/uL (150-400); POLYS 70.1 %; RDW-CV 14.8 % (10.5-14.5); WBC 7.8 thou/uL (4.0-11.0)
[2017-08-31 10:58] LABS: ALBUMIN 2.3 g/dL (3.4-5.0); CALCIUM 7.5 mg/dL (8.5-10.1); CREATININE 1.1 mg/dL (0.6-1.3); POTASSIUM 3.6 mmol/L (3.5-5.1); TOTAL BILIRUBIN 0.2 mg/dL (<0.1-1.0); TOTAL PROTEIN 5.4 g/dL (6.4-8.2)
[2017-08-31 11:51] VITALS: BP 144/69
[2017-08-31 20:15] VITALS: BP 173/77
[2017-09-01 00:32] VITALS: BP 131/83
[2017-09-01 04:07] VITALS: BP 143/71
[2017-09-01 06:01] LABS: ABSOLUTE EOSINOPHILS 0.3 thou/uL (0.0-0.7); ABSOLUTE MONOCYTES 0.9 thou/uL (0.0-1.2); ABSOLUTE NEUTROPHILS 4.9 thou/uL (1.6-8.1); BASOPHILS 0.5 %; EOSINOPHILS 3.7 %; HEMATOCRIT 26.5 % (42.0-52.0); HEMOGLOBIN 8.6 gm/dL (14.0-18.0); LYMPHOCYTES 14.3 %; MCH 26.8 pg (26.0-34.0); MCHC 32.6 g/dL (28.0-37.0); MCV 82.4 fL (80.0-100.0); MONOCYTES 12.7 %; NUCLEATED RBCS 0 /100WBC; PLATELET COUNT* 227 thou/uL (150-400); POLYS 68.8 %; RBC 3.22 mil/uL (4.50-6.00); RDW-CV 14.6 % (10.5-14.5); WBC 7.2 thou/uL (4.0-11.0)
[2017-09-01 06:33] LABS: CALCIUM 7.5 mg/dL (8.5-10.1); CREATININE 0.9 mg/dL (0.6-1.3); POTASSIUM 3.4 mmol/L (3.5-5.1); TOTAL BILIRUBIN 0.3 mg/dL (<0.1-1.0); TOTAL PROTEIN 5.4 g/dL (6.4-8.2)
[2017-09-01 06:37] LABS: INR 1.2; PROTIME 11.4 Seconds (9.20-11.50)
[2017-09-01 09:00] VITALS: BP 143/56
[2017-09-01 11:42] VITALS: BP 142/57
[2017-09-01 15:38] VITALS: BP 140/60
[2017-09-01 21:00] VITALS: BP 111/86
[2017-09-02] VITALS (7 sets, daily range): BP systolic 131–162; BP diastolic 53–93
[2017-09-03 04:06] VITALS: BP 153/66
[2017-09-03 10:50] LABS: HEMATOCRIT 28.7 % (42.0-52.0); HEMOGLOBIN 9.2 gm/dL (14.0-18.0); MCH 26.9 pg (26.0-34.0); MCHC 32.2 g/dL (28.0-37.0); MCV 83.4 fL (80.0-100.0); MPV 8.5 fl. (7.2-11.1); NUCLEATED RBCS 0 /100WBC; PLATELET COUNT* 236 thou/uL (150-400); RBC 3.44 mil/uL (4.50-6.00); RDW-CV 14.6 % (10.5-14.5); WBC 5.6 thou/uL (4.0-11.0)
[2017-09-03 11:01] LABS: ALBUMIN 2.3 g/dL (3.4-5.0); CALCIUM 7.8 mg/dL (8.5-10.1); CREATININE 1.2 mg/dL (0.6-1.3); POTASSIUM 4.1 mmol/L (3.5-5.1); TOTAL BILIRUBIN 0.2 mg/dL (<0.1-1.0); TOTAL PROTEIN 6.3 g/dL (6.4-8.2)
[2017-09-03 11:15] LABS: ABSOLUTE LYMPHOCYTES 0.3 thou/uL (0.8-5.3); ABSOLUTE MONOCYTES 0.1 thou/uL (0.0-1.2); ABSOLUTE NEUTROPHILS 5.2 thou/uL (1.6-8.1); PLATELET ESTIMATE ADEQUATE
[2017-09-03 11:46] VITALS: BP 164/71
[2017-09-03 16:00] VITALS: BP 139/85
[2017-09-04] VITALS (7 sets, daily range): BP systolic 129–174; BP diastolic 50–86
--- NOTE | 2017-09-04 08:09 | CON ---
[address] [address] CONSULTATION Name: LELE NOLAN Room: [address] IN M.R.#: [id number] Admission: 08/26/17 Attend Phys: Joey Marshall, Discharge: Date of : 40 Report #: [id number] THIS REPORT FOR: //name// CC: Nghia Marshall REASON FOR CONSULTATION: Preop surgical evaluation, COPD. HISTORY OF PRESENT ILLNESS: The patient is a 77-year-old male patient with history of COPD, previous smoker. He is chronically on 3 liters oxygen for a few years now. He presented to the hospital and admitted on 08/26/2017 with a chief complaint of nausea, vomiting and abdominal pain. He was found to have small bowel obstruction. He had a CT scan that was suggestive of that with multiple air fluid levels. During this stay, he underwent colonoscopy that showed partially obstructing, ulcerated, malignant appearing stricture within the ascending colon and he is being considered for surgical excision. The patient tells me his breathing is almost at his baseline. He will have good days and bad days, but overall he is close to baseline. He will have occasional cough and shortness of breath. He was steroid dependent in the past. It is not clear to me if he is taking any steroids at this point. He reported some abdominal discomfort today, but better than before. He is allowed to have clear liquid diet at this point. He is passing flatus. No nausea or vomiting. REVIEW OF SYSTEMS: He denied any sick contact, blurring of vision, nausea at this point, or vomiting. He denied lower extremity edema. He denied any headache. He denied any nasal discharge or obstruction. Rest of the review of systems was negative, 12-system reviewed with the patient. PAST MEDICAL HISTORY: Chronic respiratory failure and COPD. He has a history of hyperlipidemia, hypertension. PAST SURGICAL HISTORY: Cervical spine fusion, hernia repair, knee arthroplasty. HOME MEDICATIONS: He is on ProAir, albuterol, Lipitor, Pulmicort, Plavix, Valium, iron supplement, Mucinex, Singulair and oxycodone. ALLERGIES: BEE STINGS. No known drug allergies. FAMILY HISTORY: Negative for heart disease. MEDICATIONS: He is on albuterol p.r.n. He is on Ativan. He is on Zosyn, potassium supplement, scheduled nebulization treatment every 6 hours, folic acid and Singulair. LABORATORY DATA: White blood count is 7.2, hemoglobin 8.6, platelet of 227. His INR of 1.2. Creatinine of 0.9. [place] [address] CONSULTATION Name: LELE NOLAN Room: [address] IN .R.#: [id number] Admission: 08/26/17 Attend Phys: Joey Marshall, Discharge: Date of : 40 Report #: [id number] His V/Q scan was low probability for PE during this hospitalization and his chest x-ray showed some basilar scarring and atelectasis. IMPRESSION: 1. Chronic hypoxic respiratory failure. 2. Chronic obstructive pulmonary disease. 3. Bowel obstruction. 4. Suspected colon cancer. The patient is planned for surgery. This is an important surgery. The patient is symptomatic with bowel obstruction and potentially he has a cancer, so he needed a surgery. I did discuss with the patient he has a chronic respiratory failure and chronic obstructive pulmonary disease. He is at higher than average for perioperative pulmonary complications including bronchospasm, worsening respiratory status, requiring for prolonged mechanical ventilation and he is aware of that, but again this is a much needed surgery. I did discuss with the patient and he agreed to proceed with understanding of the elevated risk. I am going to optimize his pulmonary status. We will put him on Brovana and Pulmicort, scheduled nebulization treatment. I will schedule steroids for him through the IV that can be tapered in the postoperative period. The patient needs aggressive pulmonary toilet in the postoperative period with flutter valve and bronchodilators in addition to incentive spirometry, early ambulation as allowed and deep venous thrombosis prophylaxis when feasible from a surgical point of view. Thank you for the consult. We will follow along with you. <ELECTRONICALLY SIGNED> By: Sanjay Douglas MD 09/04/17 0809 1002 [id number] Tee MD /nt
--- NOTE | 2017-09-04 15:05 | S ---
[place] [address] SURGICAL PATH RPT PROCEDURE Name: OBINNA DAVIS Room: [address] IN ..#: [id number] Admission: 08/26/17 Date of : 40 Discharge: Report #: [id number] Path Case #: [id number] PATHOLOGY REPORT COLLECTION DATE: 08/31/2017 RECEIVED DATE: 09/03/2017 SUBMITTING PHYS: Dr. Mikhail Holloway OTHER PHYS: Dr. 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 - See comment. COMMENT: Reviewed with Dr. Thien Palacios who agrees with the diagnosis. Dr. Holloway notified at approximately 1500 on 09/04/2017. (MUNA:mml; 09/04/2017) PATHOLOGIST: Rah Mercado M.D. REPORT ELECTRONICALLY SIGNED BY: Rah Mercado M.D. DATE/TIME: 09/04/2017 15:04 * * * * * * * * * * * * GROSS PATHOLOGY: Received in formalin labeled "Obinna Davis, biopsy ulcerated cecal mass" and consists of 2 ramos mucosal biopsies each averaging 0.3 cm. The specimen is totally submitted as A1. (DREW; 09/03/2017) CLINICAL HISTORY: Cecal mass INITIAL CPT CODE(S): A; 94553 Professional services performed by [facility] at [facility] [address] [facility], [place] [address] [facility] [address] [place] [address] SURGICAL PATH RPT PROCEDURE Name: OBINNA DAVIS Room: [address] IN M.R.#: [id number] Admission: 08/26/17 Date of : 40 Discharge: Report #: [id number] Path Case #: [id number] [facility] performed by [facility] at [address] [place] [address], [facility] [address] [address]. [facility] [address] [place] [address] PHONE: [phone] DIRECTOR: Skinny Guerrier M.D. * * * END OF REPORT * * *
[2017-09-05] VITALS: BP 121/51
[2017-09-05 04:00] VITALS: BP 117/48
[2017-09-05 07:22] LABS: MCH 26.3 pg (26.0-34.0); MCHC 31.5 g/dL (28.0-37.0); MCV 83.6 fL (80.0-100.0); MPV 8.8 fl. (7.2-11.1); NUCLEATED RBCS 0 /100WBC; PLATELET COUNT* 204 thou/uL (150-400); RBC 2.63 mil/uL (4.50-6.00); WBC 12.8 thou/uL (4.0-11.0)
[2017-09-05 07:26] LABS: HEMOGLOBIN 6.9 gm/dL (14.0-18.0)
[2017-09-05 07:36] LABS: CALCIUM 6.9 mg/dL (8.5-10.1); CREATININE 1.1 mg/dL (0.6-1.3); MAGNESIUM 1.3 mg/dL (1.8-2.4); PHOSPHORUS* 3.7 mg/dL (2.5-4.9); POTASSIUM 4.6 mmol/L (3.5-5.1)
[2017-09-05 07:56] LABS: ABSOLUTE LYMPHOCYTES 0.4 thou/uL (0.8-5.3); ABSOLUTE MONOCYTES 0.3 thou/uL (0.0-1.2); ABSOLUTE NEUTROPHILS 12.2 thou/uL (1.6-8.1); PLATELET ESTIMATE ADEQUATE
[2017-09-05 08:00] VITALS: BP 113/50
[2017-09-05 10:37] VITALS: BP 113/47; BP 121/50; BP 127/55; BP 128/55
[2017-09-05 15:43] VITALS: BP 130/64
[2017-09-05 19:40] VITALS: BP 125/49
[2017-09-06] VITALS: BP 107/45
[2017-09-06 04:23] VITALS: BP 109/37
[2017-09-06 09:00] VITALS: BP 121/48
[2017-09-06 11:13] LABS: ABSOLUTE EOSINOPHILS 0.1 thou/uL (0.0-0.7); ABSOLUTE LYMPHOCYTES 1.1 thou/uL (0.8-5.3); ABSOLUTE NEUTROPHILS 9.5 thou/uL (1.6-8.1); BASOPHILS 0.1 %; EOSINOPHILS 0.5 %; HEMATOCRIT 22.2 % (42.0-52.0); LYMPHOCYTES 9.1 %; MCH 26.4 pg (26.0-34.0); MCHC 31.4 g/dL (28.0-37.0); MCV 84.1 fL (80.0-100.0); MPV 9.5 fl. (7.2-11.1); NUCLEATED RBCS 0 /100WBC; PLATELET COUNT* 167 thou/uL (150-400); POLYS 81.3 %; RBC 2.64 mil/uL (4.50-6.00); RDW-CV 15.1 % (10.5-14.5); WBC 11.7 thou/uL (4.0-11.0)
[2017-09-06 11:15] LABS: CALCIUM 7.2 mg/dL (8.5-10.1); CREATININE 1.1 mg/dL (0.6-1.3); POTASSIUM 3.7 mmol/L (3.5-5.1)
[2017-09-06 16:00] VITALS: BP 140/59
[2017-09-06 17:04] LABS: HEMATOCRIT 23.3 % (42.0-52.0); HEMOGLOBIN 7.4 gm/dL (14.0-18.0)
[2017-09-07] VITALS: BP 127/79; BP 160/58
[2017-09-07 04:00] VITALS: BP 154/56
[2017-09-07 05:56] LABS: ABSOLUTE EOSINOPHILS 0.1 thou/uL (0.0-0.7); ABSOLUTE LYMPHOCYTES 1.2 thou/uL (0.8-5.3); ABSOLUTE MONOCYTES 0.8 thou/uL (0.0-1.2); BASOPHILS 0.2 %; EOSINOPHILS 0.5 %; HEMATOCRIT 23.4 % (42.0-52.0); HEMOGLOBIN 7.5 gm/dL (14.0-18.0); LYMPHOCYTES 8.9 %; MCH 27.7 pg (26.0-34.0); MCV 86.4 fL (80.0-100.0); MONOCYTES 6.3 %; MPV 10.1 fl. (7.2-11.1); NUCLEATED RBCS 0 /100WBC; PLATELET COUNT* 189 thou/uL (150-400); POLYS 84.1 %; RBC 2.71 mil/uL (4.50-6.00); RDW-CV 15.8 % (10.5-14.5); WBC 13.1 thou/uL (4.0-11.0)
[2017-09-07 06:06] LABS: ALBUMIN 1.8 g/dL (3.4-5.0); ALKALINE PHOSPHATASE 38 U/L (46-116); ANION GAP 3 mmol/L (7-16); BUN 18 mg/dL (7-18); CALCIUM 7.3 mg/dL (8.5-10.1); CHLORIDE 107 mmol/L (98-107); CO2 32 mmol/L (21-32); CREATININE 1.1 mg/dL (0.6-1.3); DIRECT BILIRUBIN < 0.1 mg/dL (<0.1-0.3); MAGNESIUM 1.9 mg/dL (1.8-2.4); PHOSPHORUS* 4.6 mg/dL (2.5-4.9); SGPT 63 U/L (30-65); SODIUM 142 mmol/L (136-145); TOTAL BILIRUBIN 0.2 mg/dL (<0.1-1.0); TOTAL PROTEIN 5.3 g/dL (6.4-8.2)
[2017-09-07 06:12] LABS: POTASSIUM 5.5 mmol/L (3.5-5.1)
[2017-09-07 06:13] LABS: GLUCOSE 619 mg/dL (70-99)
[2017-09-07 06:33] LABS: SGOT 27 U/L (15-37)
[2017-09-07 08:00] VITALS: BP 146/62
[2017-09-07 08:59] LABS: CREATININE 0.9 mg/dL (0.6-1.3)
[2017-09-07 09:01] LABS: POTASSIUM 4.1 mmol/L (3.5-5.1)
[2017-09-07 12:00] VITALS: BP 151/69
--- NOTE | 2017-09-07 12:13 | EKG ---
[place] [address] ELECTROCARDIOGRAM REPORT Name: LELE NOLAN Room: [address] ADM IN M.R.#: [id number] Admission: 08/26/17 Attend Phys: Joey Marshall, Discharge: Date of : 40 Report #: [id number] THIS REPORT FOR: //name// [facility] Test Date: 2017-09-07 Test Time: 06:56:45 Pat Name: LELE NOLAN Department: Room: [address] Gender: M Bobbin Sorter: TOBIAS : 1940 Requested By: Facundo Rajput Order Number: [id number] Reading MD: Joe Laura Measurements Intervals [place] Rate: 68 P: 3 VT: 145 QRS: -14 QRSD: 95 T: 33 QT: 477 QTc: 508 Interpretive Statements Sinus rhythm Low voltage, extremity leads Prolonged QT interval Compared to ECG 08/26/2017 08:57:58 Low QRS voltage now present Prolonged QT interval now present Right bundle-branch block no longer present Electronically Signed On 09-07-2017 12:13:16 MARGIN CLERK by Joe Laura [email or web address] <ELECTRONICALLY SIGNED> By: Joe Laura MD, [facility] 09/07/17 [phone] Joe Laura MD, [facility] /EPI
[2017-09-07 16:00] VITALS: BP 144/61
[2017-09-08] VITALS: BP 169/79
[2017-09-08 04:00] VITALS: BP 139/58
[2017-09-08 05:29] LABS: HEMATOCRIT 23.2 % (42.0-52.0); HEMOGLOBIN 7.5 gm/dL (14.0-18.0); MCH 26.9 pg (26.0-34.0); MCHC 32.2 g/dL (28.0-37.0); MCV 83.4 fL (80.0-100.0); MPV 9.6 fl. (7.2-11.1); RBC 2.78 mil/uL (4.50-6.00); WBC 13.5 thou/uL (4.0-11.0)
[2017-09-08 05:56] LABS: CALCIUM 7.7 mg/dL (8.5-10.1); POTASSIUM 4.5 mmol/L (3.5-5.1)
[2017-09-08 09:00] VITALS: BP 114/60
[2017-09-08 14:12] VITALS: BP 117/42
[2017-09-08 16:00] VITALS: BP 96/67
[2017-09-08 20:20] VITALS: BP 125/41
[2017-09-09] VITALS: BP 127/61
[2017-09-09 04:00] VITALS: BP 116/50
[2017-09-09 05:39] LABS: HEMATOCRIT 22.6 % (42.0-52.0); HEMOGLOBIN 7.2 gm/dL (14.0-18.0); MCH 26.5 pg (26.0-34.0); MCHC 31.7 g/dL (28.0-37.0); MCV 83.6 fL (80.0-100.0); MPV 9.8 fl. (7.2-11.1); RBC 2.7 mil/uL (4.50-6.00); RDW-CV 15.1 % (10.5-14.5); WBC 16.1 thou/uL (4.0-11.0)
[2017-09-09 05:45] LABS: CALCIUM 7.7 mg/dL (8.5-10.1); MAGNESIUM 1.5 mg/dL (1.8-2.4); POTASSIUM 4.9 mmol/L (3.5-5.1)
[2017-09-09 12:00] VITALS: BP 126/61
[2017-09-09 16:31] VITALS: BP 125/37
[2017-09-09 20:00] VITALS: BP 125/48
[2017-09-10] VITALS: BP 116/44
[2017-09-10 04:00] VITALS: BP 128/50
[2017-09-10 05:31] LABS: HEMATOCRIT 23.4 % (42.0-52.0); HEMOGLOBIN 7.4 gm/dL (14.0-18.0); MCH 26.2 pg (26.0-34.0); MCHC 31.9 g/dL (28.0-37.0); MCV 82.3 fL (80.0-100.0); NUCLEATED RBCS 0 /100WBC; PLATELET COUNT* 273 thou/uL (150-400); RBC 2.84 mil/uL (4.50-6.00); RDW-CV 15.1 % (10.5-14.5); WBC 16.4 thou/uL (4.0-11.0)
[2017-09-10 05:50] LABS: CALCIUM 7.9 mg/dL (8.5-10.1); MAGNESIUM 1.4 mg/dL (1.8-2.4); POTASSIUM 4.4 mmol/L (3.5-5.1)
[2017-09-10 06:08] LABS: ABSOLUTE LYMPHOCYTES 2.1 thou/uL (0.8-5.3); ABSOLUTE MONOCYTES 1.1 thou/uL (0.0-1.2); ABSOLUTE NEUTROPHILS 13.1 thou/uL (1.6-8.1); PLATELET ESTIMATE ADEQUATE
[2017-09-10 06:09] LABS: ANISOCYTOSIS 1+; CLUMPED PLTS FEW; HYPOCHROMASIA 1+; POIKILOCYTOSIS 1+; TOXIC GRANULATION 1+
[2017-09-10 12:00] VITALS: BP 114/54; BP 119/54
[2017-09-10 15:00] VITALS: BP 126/51
[2017-09-11 00:30] VITALS: BP 132/66
[2017-09-11 04:30] VITALS: BP 141/57
[2017-09-11 05:38] LABS: ABSOLUTE BASOPHILS 0.1 thou/uL (0.0-0.2); ABSOLUTE EOSINOPHILS 0.1 thou/uL (0.0-0.7); ABSOLUTE LYMPHOCYTES 1.3 thou/uL (0.8-5.3); ABSOLUTE MONOCYTES 1.7 thou/uL (0.0-1.2); ABSOLUTE NEUTROPHILS 13.3 thou/uL (1.6-8.1); BASOPHILS 0.3 %; EOSINOPHILS 0.3 %; HEMATOCRIT 21.7 % (42.0-52.0); HEMOGLOBIN 7.2 gm/dL (14.0-18.0); LYMPHOCYTES 7.9 %; MCH 26.9 pg (26.0-34.0); MCHC 33.1 g/dL (28.0-37.0); MCV 81.2 fL (80.0-100.0); MONOCYTES 10.3 %; MPV 9.7 fl. (7.2-11.1); NUCLEATED RBCS 0 /100WBC; PLATELET COUNT* 261 thou/uL (150-400); POLYS 81.2 %; RBC 2.67 mil/uL (4.50-6.00); RDW-CV 15.2 % (10.5-14.5); WBC 16.4 thou/uL (4.0-11.0)
[2017-09-11 06:05] LABS: CALCIUM 7.6 mg/dL (8.5-10.1); CREATININE 1.1 mg/dL (0.6-1.3); PHOSPHORUS* 4.2 mg/dL (2.5-4.9); POTASSIUM 4.4 mmol/L (3.5-5.1)
[2017-09-11 11:30] VITALS: BP 134/51
--- NOTE | 2017-09-11 13:16 | S ---
[place] [address] SURGICAL PATH RPT PROCEDURE Name: OBINNA DAVIS Room: [address] IN M.R.#: [id number] Admission: 08/26/17 Date of : 40 Discharge: Report #: [id number] Path Case #: [id number] PATHOLOGY REPORT COLLECTION DATE: 09/04/2017 RECEIVED DATE: 09/04/2017 SUBMITTING PHYS: Dr. Facundo Rajput OTHER PHYS: Dr. Nghia Holloway ADDENDUM REPORT (Order Date: 09/11/2017 13:08) ADDENDUM COMMENT: Mismatch repair (MMR) protein immunohistochemical staining was performed. Specimen: Formalin fixed paraffin embedded tissue Specimen ID: [id number], [id number] Reason for testing: To evaluate for evidence of defective mismatch repair proteins. Method: Immunohistochemical staining for the presence or absence of protein expression of one or more of the following MMR protein markers: MLH1, MSH2, MSH6 and PMS2. Tumor type: Colonic adenocarcinoma Results: MLH1 - Preserved MSH2 - Preserved MSH6 - Preserved PMS2 - Preserved Mismatch Repair Status: MMR Proficient (MMR-P) Interpretation: (MMR-P) All four MMR proteins are preserved within tumor cells. This suggests the presence of normal DNA mismatch repair function within the tumor and an observable defect in mismatch repair is not identified. The likelihood that this patient has an inherited germline mutation syndrome due to defective mismatch repair is reduced but not totally eliminated. If the patient has a strong personal or family history of HPNCC/Escobar syndrome related cancers (colorectal, endometrial, gastric, ovarian, pancreatic, ureter/renal pelvis, biliary tract, brain, small bowel and Jeana-Jakob syndrome), consider MSI testing by PCR methodology. Suggest clinical correlation and follow up. These test results are designed for screening purposes only and are useful tools in identifying cancer patients that are more likely to have Escobar Syndrome related diagnoses. Tests should be interpreted in the context of clinical findings, family history and laboratory data. Abnormal IHC results for MMR protein expression are not considered diagnostic for Escobar Syndrome. (MUNA:; 09/11/2017) [place] [address] SURGICAL PATH RPT PROCEDURE Name: OBINNA DAVIS Room: [address] IN ..#: [id number] Admission: 08/26/17 Date of : 40 Discharge: Report #: [id number] Path Case #: [id number] Professional services performed by [facility] at [facility], [address] [place] [address]. Technical services performed by [facility] at [address] [place] [address], [address] [place] [address]. ELECTRONICALLY SIGNED BY: Rah Mercado M.D. DATE/TIME:09/11/2017 13:15 SPECIMEN(S) RECEIVED: A.Right colon * * * * * * * * * * * * FINAL DIAGNOSIS: Right colon: - ULCERATED COLONIC ADENOCARCINOMA, MODERATELY DIFFERENTIATED, FORMING A MASS MEASURING 4.0 X 2.5 X 1.2 CM IN ASCENDING COLON, WITH TRANSMURAL INVASION TO FOCALLY INVOLVED INKED FREE SEROSAL SURFACE. - AT LEAST TWO OF AT LEAST TEN LYMPH NODES WITH METASTATIC ADENOCARCINOMA WITH EXTRANODAL INVOLVEMENT OF FAT NOTED (AT LEAST 2/AT LEAST 10). - FOUR PERICOLIC TUMOR DEPOSITS. SEE COMMENT. SPECIMEN Specimen: Terminal ileum Cecum Appendix Ascending colon Procedure: Right hemicolectomy Macroscopic Intactness of Mesorectum: Not applicable TUMOR Primary Tumor Site: Right (ascending) colon Histologic Type: Adenocarcinoma Histologic Grade: Low-grade (well differentiated to moderately differentiated) Tumor Size: Greatest dimension (cm): 4 Additional Dimension (cm): 2.5 Additional Dimension (cm): 1.2 Tumor Deposits: Present Number of Deposits: Specify: 4 Tumor Extent Site(s) of Direct Extent of Tumor: Right (ascending) colon Microscopic Tumor Extension: Tumor penetrates to the surface of the visceral peritoneum (serosa) Macroscopic Tumor Perforation: Not Identified Accessory Tumor Findings Lymph-Vascular Invasion: [place] [address] SURGICAL PATH RPT PROCEDURE Name: OBINNA DAVIS Room: [address] IN [facility]#: [id number] Admission: 08/26/17 Date of : 40 Discharge: Report #: [id number] Path Case #: [id number] Histologic Features Suggestive of Microsatellite Instability Intratumoral Lymphocytic Response (tumor-infiltrating lymphocytes): None Peritumor Lymphocytic Response (Crohn-like response): None Perineural Invasion: Not identified Type of Polyp in Which Invasive Carcinoma Arose: Tubular adenoma MARGINS All margins uninvolved by invasive carcinoma Distance of Invasive Carcinoma from Closest Margin: Specify (cm): 4.9 Specify Margin: Circumferential (Radial) or Mesenteric For Resection Specimens Only Proximal Margin: Uninvolved by invasive carcinoma Distal Margin: Uninvolved by invasive carcinoma Distance of Tumor from Margin (required only for rectal tumors): Specify (cm): 13.8 Circumferential (Radial) Margin: Not applicable Mesenteric Margin: Uninvolved by invasive carcinoma LYMPH NODES Regional Lymph Nodes: Number of Lymph Nodes Examined: At least: 10 Number of Lymph Nodes Involved: At least: 2 STAGE (PTNM) Primary Tumor (pT): pT4a: Tumor penetrates the visceral peritoneum Regional Lymph Nodes (pN): pN1b: Metastasis in 2 to 3 regional lymph nodes ADDITIONAL FINDINGS Additional Pathologic Findings: Other: prominent fibrosis of serosa and muscularis propria of colon proximal to tumor COMMENT: Tumor is seen to directly extend to the inked free serosal surface in A4. The tumor is noted to have many areas of minute aggregates of tumor cells and glands including thin stellate extensions at its invasive front. Four pericolic fatty tumor deposits are noted which could represent completely replaced lymph nodes and the largest tumor deposit measures 0.9 x 0.9 x 0.7 cm (A13) where it is also seen to involve the inked free serosal surface. Transmural sections take of the colon proximal to the mass (A9 [place] [address] SURGICAL PATH RPT PROCEDURE Name: OBINNA DAVIS Room: [address] IN [facility]#: [id number] Admission: 08/26/17 Date of : 40 Discharge: Report #: [id number] Path Case #: [id number] A10) show prominent serosal fibrosis as well as fibrosis within the muscularis propria, highlighted with a properly controlled trichrome stain, the etiology of which is not known but raises a question of irradiation. Microsatellite instability/mismatch repair protein analysis will be performed on A7 and will be the subject of an addendum report. (MUNA:pit; 09/10/2017) Special stain: Trichrome on A10 PATHOLOGIST: Rah Mercado M.D. REPORT ELECTRONICALLY SIGNED BY: Rah Mercado M.D. DATE/TIME: 09/10/2017 15:42 * * * * * * * * * * * * GROSS PATHOLOGY: Received in formalin labeled "Obinna Davis, right colon" and consists of a right hemicolectomy specimen with colon (cecum/ascending colon/possible hepatic flexure) measuring 28.0 cm in length and diameter ranging from a 5.0 cm-8.0 cm. The increased diameter is seen at the cecum. The terminal ileum measures 6.0 cm in length by 2.0 cm in diameter and an appendix measures 3.7 cm length by 0.7 cm in diameter. There is mesenteric/pericolic fat extending the entire length of colon that measures up to 5.0 cm thick. The antimesenteric serosa is glistening, pink, with no obvious puckering identified. The segment is opened longitudinally. There is a sessile, fixed, polypoid, pink and red mass present within the ascending colon that measures 4.0 x 2.5 x 1.2 cm and it involves approximately one-third of the luminal circumference. The mass is 8.2 cm from the proximal margin, 13.8 cm from the distal margin, and 4.9 cm from the mesenteric margin. Sectioning the mass reveals extension through the muscularis propria and into the surrounding fat. There is no visible tattoo ink. The mass extends to within 0.4 cm of the serosa (peritonealized surface, inked black). There is a tumor deposit versus grossly involved lymph node deep to the mass that measures 0.9 x 0.9 x 0.7 cm. The lymph node versus tumor deposit extends to within 0.2 cm of the inked serosa. The mucosa proximal to the mass is markedly edematous, hyperemic, with no folds identified. The wall of cecum and proximal ascending colon (proximal to mass) is markedly fibrotic and ranges in thickness from 0.3 cm-0.9 cm. The mucosa distal to the mass is ramos, brown, green, with minimal to no folds identified. The ileocecal valve is hyperemic. The terminal ileum mucosa is ramos to ramos-green. Sectioning the appendix reveals no gross lesions. Sectioning the fat reveals a few lymph node candidates ranging in size a 0.2 cm-and a 0.9 cm in maximum dimension. [employer] Administrator sections are submitted as follows: [place] [address] SURGICAL PATH RPT PROCEDURE Name: OBINNA DAVIS Room: [address] IN [facility]#: [id number] Admission: 08/26/17 Date of : 40 Discharge: Report #: [id number] Path Case #: [id number] A1 proximal margin A2 distal margin A3 mesocolonic margin nearest mass (mesenteric margin) A4-A5 mass showing deepest invasion A6 tumor deposit deep to mass versus grossly involved lymph nodes showing inked serosa A7 mass transition A8 transmural sections distal to the mass A9-A10 transmural sections proximal to the mass A11 appendix base, perpendicular, to include portion of cecum A12 tip and transverse sections of appendix A13 two whole lymph node candidates, inked serosa. A14-A15 multiple whole lymph node candidates in each cassette ([facility]; 09/05/2017) The fat is placed in clearing solution and reexamined. There are a few lymph node candidates identified ranging in size from less than 0.1 cm-0.2 cm. A16 whole lymph node candidates A17 whole lymph node candidates (DREW; 09/06/2017) The fat is reexamined again. Additional sections are submitted for possible lymph node candidates: A18-A19 possible whole lymph node candidates in each cassette A 20-A 23 fat for possible microscopic lymph nodes. (DREW; 09/07/2017) CLINICAL HISTORY: Small bowel obstruction INITIAL CPT CODE(S): A; 81347, 02851, 88187, 53606, 89161, [address] Professional services [place] [address] Technical services performed by [facility] at [address] [place] [address], [address], [place] [address]. [facility] [address] [place] [address] PHONE: [phone] DIRECTOR: Skinny Guerrier M.D. * * * END OF REPORT * * *
[2017-09-11 16:10] VITALS: BP 114/52
[2017-09-11 19:55] VITALS: BP 111/51
[2017-09-12 07:50] VITALS: BP 128/49
[2017-09-12] MEDS ORDERED: PREDNISONE 10 M10 MG PO (10:24)
[2017-09-12] MEDS ORDERED: PANTOPRAZOLE SO40 M1 PO (10:24)
[2017-09-12 11:46] VITALS: BP 128/49
[2017-09-12] MEDS ORDERED: TRAMADOL 50 MG50 MG PO (11:58)
--- NOTE | 2017-09-21 09:46 | CON ---
[address] [address] CONSULTATION Name: LELE NOLAN Room: [address] IN ..#: [id number] Admission: 08/26/17 Attend Phys: Joey Marshall, Discharge: 09/12/17 Date of : 40 Report #: [id number] THIS REPORT FOR: //name// CC: Nghia Marshall DATE OF SERVICE: 08/27/2017 REQUESTING PHYSICIAN: Joey Marshall MD REASON FOR CONSULTATION: Acute kidney injury. HISTORY OF PRESENT ILLNESS: The patient is a very pleasant 77-year-old gentleman, admitted to the hospital yesterday with complaints of abdominal pain, nausea, vomiting. Symptoms started around 5:30 last night, it is getting worse. He apparently was here last week with the same problem, but he left the hospital against medical advice. He has not been having bowel movements for a week. He was admitted, diagnosed with small-bowel obstruction, Surgery consulted, NG-tube placed, and I was consulted. MEDICAL HISTORY: Significant for advanced COPD. He is on home oxygen. He also has history of chronic kidney disease, history of BPH, sleep disturbance, history of anemia. HOME MEDICATIONS: Reviewed. From my standpoint, he was on Flomax. He was not on any water pills, he was not on any angiotensin receptor blockers or RACHANA inhibitors. FAMILY HISTORY: Noncontributory. SOCIAL HISTORY: He used to smoke, but quit smoking several years ago. REVIEW OF SYSTEMS: Positive for symptoms as I mentioned earlier. PHYSICAL EXAMINATION: GENERAL: He is awake, alert, oriented, no acute distress. VITAL SIGNS: Blood pressure 105/55, heart rate is 111, respirations 19, afebrile. HEENT: Pupils are round. NECK: Fatty. LUNGS: Decreased air movements. CARDIOVASCULAR: Regular rate. ABDOMEN: Obese, distended. LOWER EXTREMITIES: [place] [address] CONSULTATION Name: LELE NOLAN Room: [address]#: [id number] Admission: 08/26/17 Attend Phys: Joey Marshall, Discharge: 09/12/17 Date of : 40 Report #: [id number] LABORATORY DATA: Reported significant for elevated white count of 41,500, hemoglobin 11.4. Serum sodium 145, potassium 4.0, chloride 100, carbon dioxide is 34, BUN 30, creatinine 4.5. Lactic acid initially was 2.3, now is 1.4. Urinalysis not done. ASSESSMENT: A 77-year-old gentleman, admitted with small-bowel obstruction. He has acute kidney injury. He is anemia. He also has chronic kidney disease stage 3, at baseline. He is receiving IV fluids. There is no need for immediate dialysis. I am planning to continue with IV fluids. We will place a Stone catheter. He had CT scan of abdomen done without contrast. If kidneys looked unremarkable, I will not order renal ultrasound. CT scan revealed just persistent diffuse, dilated fluid-filled loops of small bowel with prominent stool and some fluid within the cecum. I will await surgical note, he may require surgery. Thank you very much for asking my opinion on acute kidney injury of the patient. <ELECTRONICALLY SIGNED> By: Raymond Horvath MD 09/21/17 0946 1045 [id number] eduardo Horvath MD /nt
--- NOTE | 2017-10-23 10:58 | OP ---
[address] [address] OPERATIVE REPORT Name: LELE NOLAN Room: [address] IN ..#: [id number] Admission: 08/26/17 Attend Phys: Joey Marshall, Discharge: 09/12/17 Date of : 40 Report #: [id number] THIS REPORT FOR: //name// CC: Nghia Marshall DICTATED BY: Velma Fernando DO DATE OF SERVICE: 09/04/2017 PREOPERATIVE DIAGNOSIS: Ascending colon mass. POSTOPERATIVE DIAGNOSIS: Ascending colon mass. SURGEON: Velma Fernando DO, PGY5 SUPERVISING SURGEON: Facundo Rajput DO POULTRY DEBEAKER: Kannan Lopez, PGY1. PROCEDURE: Laparoscopic right hemicolectomy, umbilical hernia repair. ANESTHESIA: General endotracheal and local. BLOOD LOSS: 100 mL. SPECIMENS: Right colon. COMPLICATIONS: None. DISPOSITION: Was extubated in the operating room to BiPAP in PACU and returned to telemetry in good condition. OPERATIVE DETAILS: After obtaining proper informed consent, the patient was brought to the operating room and laid supine on the operating table. He was sedated and intubated under the benefit of general anesthesia. He was receiving scheduled Zosyn on the floor. He was then placed in lithotomy position and abdomen was prepped and draped in the usual sterile fashion and timeout was performed. Incision was made just to the left of the umbilicus and slightly superior to the umbilicus. Dissection was carried out to the level of the fascia with the use of cautery. There was an umbilical hernia. This was ligated free of the umbilicus and reduced into the abdomen. Peritoneum was then entered bluntly with the use of a finger and peritoneum was swept and found to be free of adhesions, 0 Vicryl retention sutures were placed and Sonido trocar was placed in the abdomen. A camera was then placed in the abdomen and a brief 4-quadrant inspection was undertaken. The c[place] [address] OPERATIVE REPORT Name: LELE NOLAN Room: [address]#: [id number] Admission: 08/26/17 Attend Phys: Joey Marshall, Discharge: 09/12/17 Date of : 40 Report #: [id number] of the umbilicus and a 5 mm trocar was then placed in the left upper quadrant and ascending colon was retracted medially and we were able to identify the tattoo, which on colonoscopy was just distal to the mass and tattoo was just proximal to the hepatic flexure. A 5 mm trocar was then placed in the epigastric position as well as the right lower quadrant. There were some adhesions of small bowel to the right lower quadrant abdominal wall and these were carefully taken down with the use of cautery. We then began our dissection mobilizing the white line of [place] to mobilize the cecum medially and extended this superiorly to the hepatic flexure. We then came to the mid transverse colon and dissected the omentum from the transverse colon and proceeded back towards the hepatic flexure until we had completely taken down the hepatic flexure and it was mobilized freely to reach the midline. Cecum was then grasped with a laparoscopic [place]. Abdomen was desufflated and the incision was extended superiorly above the umbilicus inclusive of the fascia. Caio wound protector was placed and colon was brought out through the midline incision. There was a large approximately 4 cm firm mass palpable. We then selected our proximal and distal resection margins and 80 mm SOFIA stapler was used to ligate the terminal ileum as well as proximal transverse colon. LigaSure device was then used to severely clamp and divide the mesentery. When we had reached the ileocolic artery, this was isolated and clamped with 2 Peons and suture ligated with 2-0 silk sutures with good hemostasis. Once our specimen was completely freed, it was passed off and sent to pathology for further evaluation. Enterotomies were made in the terminal ileum and transverse colon and common channel was created with an 80 mm blue load SOFIA stapler. Common enterotomy was then closed with a TA 60 stapler. The anastomosis was inspected and was patent. Two 2-0 Vicryl sutures were placed as crotch stitches for support to the anastomosis. Anastomosis was then returned to the abdomen and a cap was placed on Caio. Abdomen was again insufflated and dissection planes were inspected and hemostasis was assured. Right abdomen was then irrigated. A 15-Czech EDWAR drain was then placed through the 5 mm port in the right lower quadrant. Abdomen was desufflated and all trocars were removed under direct visualization with no evidence of bleeding. EDWAR was secured with a 2-0 nylon suture. Fascia of umbilical incision was reapproximated with #1 looped PDS suture with good approximation. Local infiltration of 0.5% Marcaine was injected around all incisions. Subcutaneous tissues were reapproximated of midline incision with 3-0 Vicryl and skin of all incisions was closed with 4-0 Monocryl followed by Mastisol, Steri-Strips, sterile Tegaderm dressing and gauze pressure dressing. All counts were correct at the end of the case. Drapes were removed and the patient was awoken and extubated and brought to PACU where he was placed on BiPAP, but was in good condition for further recovery. Dr. Facundo Rajput was present and scrubbed for the entirety of the procedure. <ELECTRONICALLY SIGNED> By: Facundo Rajput DO 10/23/17 1058 1450 1721Acaryl Rajput DO /nt
== END 2017-09-12 13:18 | disposition home or self-care (01) | DRG 853 ==
LOC: M.ERS 08:54 → M.2W 10:58 → M.ICU 10:58 → M.TBA-ER 10:58 → M.2W 14:05 → M.ICU 08-27 01:39 → M.2W 08-27 13:05 → M.3W 09-11 15:28
PROVIDERS: Emergency Medicine Emergency Medical Services; Internal Medicine; Internal Medicine Gastroenterology; Internal Medicine Nephrology; Specialist; Surgery; ADMIT Family Medicine
PROC: 0DBK8ZX Excision of Ascending Colon, Via Natural or Artificial Opening Endoscopic, Diagnostic (ICD-10-PCS; principal; 2017-08-31)
PROC: 05HY33Z Insertion of Infusion Device into Upper Vein, Percutaneous Approach (ICD-10-PCS; 2017-09-01)
PROC: 5A09357 Assistance with Respiratory Ventilation, Less than 24 Consecutive Hours, Continuous Positive Airway Pressure (ICD-10-PCS; 2017-09-04)
PROC: 0DTF4ZZ Resection of Right Large Intestine, Percutaneous Endoscopic Approach (ICD-10-PCS; 2017-09-04)
PROC: 30233N1 Transfusion of Nonautologous Red Blood Cells into Peripheral Vein, Percutaneous Approach (ICD-10-PCS; 2017-09-05)
PROC: 5A09357 Assistance with Respiratory Ventilation, Less than 24 Consecutive Hours, Continuous Positive Airway Pressure (ICD-10-PCS; 2017-09-06)
DX: A41.9 Sepsis, unspecified organism (principal); N17.0 Acute kidney failure with tubular necrosis; J96.01 Acute respiratory failure with hypoxia; G93.40 Encephalopathy, unspecified; E66.2 Morbid (severe) obesity with alveolar hypoventilation; K56.600 Partial intestinal obstruction, unspecified as to cause; K63.3 Ulcer of intestine; E44.0 Moderate protein-calorie malnutrition; J98.11 Atelectasis; C18.2 Malignant neoplasm of ascending colon; N18.3 Chronic kidney disease, stage 3 (moderate); I12.9 Hypertensive chronic kidney disease with stage 1 through stage 4 chronic kidney disease, or unspecified chronic kidney disease; E83.42 Hypomagnesemia; E87.5 Hyperkalemia; D64.9 Anemia, unspecified; R73.9 Hyperglycemia, unspecified; D50.9 Iron deficiency anemia, unspecified; K57.30 Diverticulosis of large intestine without perforation or abscess without bleeding; I25.10 Atherosclerotic heart disease of native coronary artery without angina pectoris; E16.2 Hypoglycemia, unspecified; E87.6 Hypokalemia; K59.00 Constipation, unspecified; R65.20 Severe sepsis without septic shock; J44.9 Chronic obstructive pulmonary disease, unspecified; Z79.899 Other long term (current) drug therapy; Z68.39 Body mass index [BMI] 39.0-39.9, adult

== ENCOUNTER 2017-09-26 10:14 | Inpatient (IN) | payer OTHER, SELFPAY ==
[~2017-09-26] VITALS: Ht 177.8 cm; Wt 112.9 kg
[~2017-09-26 10:14] MED LIST changes: +FLOMAX0.4 MG PO; +PANTOPRAZOLE SO40 M1 PO; +TRAMADOL 50 MG50 MG PO
[2017-09-26 10:15] VITALS: BP 127/61
[2017-09-26 10:51] LABS: ABSOLUTE BASOPHILS 0.2 thou/uL (0.0-0.2); ABSOLUTE EOSINOPHILS 0.1 thou/uL (0.0-0.7); ABSOLUTE LYMPHOCYTES 1.8 thou/uL (0.8-5.3); ABSOLUTE MONOCYTES 0.9 thou/uL (0.0-1.2); ABSOLUTE NEUTROPHILS 10.5 thou/uL (1.6-8.1); BASOPHILS 1.4 %; EOSINOPHILS 0.6 %; HEMOGLOBIN 8.7 gm/dL (14.0-18.0); LYMPHOCYTES 13.4 %; MCH 25.6 pg (26.0-34.0); MCHC 31.1 g/dL (28.0-37.0); MCV 82.4 fL (80.0-100.0); MONOCYTES 6.8 %; MPV 8.3 fl. (7.2-11.1); NUCLEATED RBCS 0 /100WBC; PLATELET COUNT* 329 thou/uL (150-400); POLYS 77.8 %; RBC 3.39 mil/uL (4.50-6.00); RDW-CV 15.2 % (10.5-14.5); WBC 13.5 thou/uL (4.0-11.0)
[2017-09-26 10:59] LABS: CALCIUM 8.6 mg/dL (8.5-10.1); CREATININE 1.2 mg/dL (0.6-1.3); INR 1.1; POTASSIUM 4.3 mmol/L (3.5-5.1)
[2017-09-26 11:03] LABS: ALBUMIN 2.3 g/dL (3.4-5.0); TOTAL BILIRUBIN 0.3 mg/dL (<0.1-1.0); TOTAL PROTEIN 7.4 g/dL (6.4-8.2)
[2017-09-26 14:49] VITALS: BP 115/82
[2017-09-26 19:35] VITALS: BP 146/73
[2017-09-27 05:17] LABS: CREATININE 1.4 mg/dL (0.6-1.3); POTASSIUM 4.5 mmol/L (3.5-5.1)
[2017-09-27 05:22] LABS: HEMATOCRIT 27.1 % (42.0-52.0); HEMOGLOBIN 8.5 gm/dL (14.0-18.0); MCH 25.4 pg (26.0-34.0); MCHC 31.4 g/dL (28.0-37.0); MPV 8.6 fl. (7.2-11.1); NUCLEATED RBCS 0 /100WBC; PLATELET COUNT* 306 thou/uL (150-400); RBC 3.34 mil/uL (4.50-6.00); RDW-CV 14.5 % (10.5-14.5)
[2017-09-27 05:50] LABS: ABSOLUTE EOSINOPHILS 0.2 thou/uL (0.0-0.7); ABSOLUTE LYMPHOCYTES 1.1 thou/uL (0.8-5.3); ABSOLUTE MONOCYTES 0.5 thou/uL (0.0-1.2); ABSOLUTE NEUTROPHILS 13.4 thou/uL (1.6-8.1); PLATELET ESTIMATE ADEQUATE
[2017-09-27 05:51] LABS: ANISOCYTOSIS 1+; HYPOCHROMASIA 1+; POIKILOCYTOSIS 1+
[2017-09-27 08:00] VITALS: BP 152/73
[2017-09-27 14:07] VITALS: BP 152/73
[2017-09-27 19:40] VITALS: BP 134/70
[2017-09-27 23:41] VITALS: BP 138/64
[2017-09-28 03:46] LABS: ABSOLUTE EOSINOPHILS 0.2 thou/uL (0.0-0.7); ABSOLUTE LYMPHOCYTES 1.6 thou/uL (0.8-5.3); ABSOLUTE MONOCYTES 0.7 thou/uL (0.0-1.2); ABSOLUTE NEUTROPHILS 7.4 thou/uL (1.6-8.1); BASOPHILS 0.3 %; EOSINOPHILS 2.4 %; HEMATOCRIT 27.6 % (42.0-52.0); HEMOGLOBIN 8.8 gm/dL (14.0-18.0); LYMPHOCYTES 15.6 %; MCH 25.8 pg (26.0-34.0); MCV 80.5 fL (80.0-100.0); MONOCYTES 7.3 %; MPV 8.3 fl. (7.2-11.1); NUCLEATED RBCS 0 /100WBC; PLATELET COUNT* 304 thou/uL (150-400); POLYS 74.4 %; RBC 3.43 mil/uL (4.50-6.00); RDW-CV 14.9 % (10.5-14.5)
[2017-09-28 03:52] LABS: CALCIUM 8.1 mg/dL (8.5-10.1); CREATININE 1.4 mg/dL (0.6-1.3)
[2017-09-28 04:14] VITALS: BP 153/66
[2017-09-28 04:15] VITALS: BP 124/60
--- NOTE | 2017-09-28 07:53 | CON ---
[address] [address] CONSULTATION Name: OBINNA NOLAN Room: [address] IN .R.#: [id number] Admission: 09/26/17 Attend Phys: Facundo Rajput DO Discharge: Date of : 40 Report #: [id number] THIS REPORT FOR: //name// CC: Facundo Agrawal Arjun DATE OF SERVICE: 09/27/2017 INFECTIOUS DISEASE CONSULTATION ATTENDING PHYSICIAN: Facundo Rajput DO REASON FOR EVALUATION: Intra-abdominal abscess. HISTORY OF PRESENT ILLNESS: Chart reviewed, patient examined. This is a 77-year-old gentleman known to myself following the latter part of July he had been admitted with marked abdominal pain, some enteritis small bowel obstruction with marked leukocytosis, ultimately underwent laparoscopic right hemicolectomy, was confirmed to have adenocarcinoma. Postop course was somewhat complicated. He does have an O2 requiring COPD. Eventually, he was discharged roughly 2 weeks ago. He noted overall, he had been improving; however, over the course of the last day or two prior to admission, had developed increasing abdominal related pain, some mild anorexia. He states his pulmonary status was relatively stable on his current O2 settings, not certain if he had fevers. He was also noted to have some drainage from the operative site wound. He presented to the Emergency Room as requested, underwent imaging of the abdomen and pelvis showed two right-sided abdominal abscesses which appear to communicate with each other through a small fistulous tract. This was to the anterior abdominal wall. Right lower quadrant appears to communicate either with the abscess or with the small bowel. Lactic acid is 1.3. White count was mildly elevated at 13.5. Blood cultures thus far are sterile. He did get started on Zosyn. He is not overtly toxic at this point. ALLERGIES: None medical. MEDICATIONS: Include enoxaparin, venlafaxine, tamsulosin, pantoprazole, p.r.n. analgesics, antiemetics, atorvastatin, Zosyn, ipratropium and albuterol inhaler. 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 SOCIAL HISTORY: Former smoker[place] [address] CONSULTATION Name: OBINNA NOLAN Room: [address]#: [id number] Admission: 09/26/17 Attend Phys: Facundo Rajput DO Discharge: Date of : 40 Report #: [id number] FAMILY HISTORY: Noncontributory. REVIEW OF SYSTEMS: As above. PHYSICAL EXAMINATION: GENERAL: Appears fairly comfortable. He is lucid. Actually overall, he looks better than I saw him previously. He is on supplemental oxygen per nasal cannula. He does have appearance of chronic illness, mild distress. VITAL SIGNS: Temperature max 100.2, more recently 99.3, pulse 82, respirations 18, blood pressure 152/73. SKIN: Warm, dry. HEENT: Remarkable, has an abrasion area over his forehead as a result of a fall apparently. NECK: Supple. LUNGS: Diminished breath sounds, scattered, somewhat coarse. These are more chronic scarring-like related noises. HEART: Regular. ABDOMEN: Obese, has what appears to be a fistulous sinus tract, right lower quadrant, some moderate degree of marginal erythema and inflammatory signs, not overtly tender. There are no peritoneal signs. GENITOURINARY: Deferred. RECTAL: Deferred. LABORATORY DATA: Blood cultures 1 out of 2 with gram-positive cocci. CBC: White count of 15.0, H and H 8.5 and 27.1, platelets of 306. Prealbumin 11.8. Electrolytes: Sodium 142, potassium 4.5, chloride 103, bicarbonate is 33, anion gap 6, BUN and creatinine 17 and 1.4. Lactic acid 1.3. ASSESSMENT AND PLAN: Abdominal abscesses, recent laparoscopic right hemicolectomy and some question of enterocutaneous fistula. We will continue piperacillin and tazobactam and may require additional intervention. We will await Surgery's plans and monitor expectantly. Certainly risk for additional nosocomial related infectious complications. <ELECTRONICALLY SIGNED> By: Obinna Sinclair MD 09/28/17 0753 1520 2133Jogabe Sinclair MD /nt
[2017-09-28 09:00] VITALS: BP 120/76
[2017-09-28 15:59] VITALS: BP 133/56
--- NOTE | 2017-09-28 17:26 | EKG ---
[place] [address] ELECTROCARDIOGRAM REPORT Name: LELE NOLAN Room: [address] ADM IN M.R.#: [id number] Admission: 09/26/17 Attend Phys: Facundo Rajput DO Discharge: Date of : 40 Report #: [id number] THIS REPORT FOR: //name// [facility] Test Date: 2017-09-28 Test Time: 03:59:31 Pat Name: LELE NOLAN Department: Room: [address] Gender: M Hammerer Helper[facility] 1940 Requested By: Facundo Rajput Order Number: [id number] Reading MD: Arjun Trinidad Measurements Intervals [place] Rate: 82 P: -18 [place]: 152 QRS: -29 QRSD: 90 T: 52 QT: 399 QTc: 466 Interpretive Statements Sinus rhythm Inferior infarct, old Compared to ECG 09/07/2017 06:56:45 Myocardial infarct finding now present Prolonged QT interval no longer present Electronically Signed On 09-28-2017 17:26:41 TECHNICAL MARKETING ENGINEER by Arjun Trinidad [email or web address] <ELECTRONICALLY SIGNED> By: Arjun Trinidad MD, [facility] 09/28/17 1726 0359 0359 Arjun Trinidad MD, FACC /EPI
--- NOTE | 2017-09-28 17:27 | EKG ---
[place] [address] ELECTROCARDIOGRAM REPORT Name: LELE NOLAN Room: [address] ADM IN M.R.#: [id number] Admission: 09/26/17 Attend Phys: Facundo Rajput DO Discharge: Date of : 40 Report #: [id number] THIS REPORT FOR: //name// [facility] Test Date: 2017-09-28 Test Time: 08:52:01 Pat Name: LELE NOLAN Department: Room: [address] Gender: M Hull Inspector: SAURABH : 1940 Requested By: Facundo Rajput Order Number: [id number] Reading MD: Arjun Trinidad Measurements Intervals [place] Rate: 70 P: -22 [place]: 140 QRS: -25 QRSD: 96 T: 53 QT: 410 QTc: 443 Interpretive Statements Sinus rhythm Borderline left axis deviation Borderline low voltage, extremity leads Compared to ECG 09/07/2017 06:56:45 Prolonged QT interval no longer present Electronically Signed On 09-28-2017 17:27:21 SNOWSPORT INSTRUCTOR by Arjun Trinidad [email or web address] <ELECTRONICALLY SIGNED> By: Arjun Trinidad MD, [facility] 09/28/17 1727 0852 0852 Arjun Trinidad MD, [facility] /EPI
[2017-09-29 00:03] VITALS: BP 105/49
[2017-09-29 02:50] LABS: ABSOLUTE EOSINOPHILS 0.2 thou/uL (0.0-0.7); ABSOLUTE LYMPHOCYTES 1.4 thou/uL (0.8-5.3); ABSOLUTE MONOCYTES 0.5 thou/uL (0.0-1.2); ABSOLUTE NEUTROPHILS 4.7 thou/uL (1.6-8.1); BASOPHILS 0.3 %; EOSINOPHILS 3.4 %; HEMATOCRIT 24.1 % (42.0-52.0); HEMOGLOBIN 7.6 gm/dL (14.0-18.0); LYMPHOCYTES 19.8 %; MCH 25.5 pg (26.0-34.0); MCHC 31.4 g/dL (28.0-37.0); MCV 81.2 fL (80.0-100.0); MONOCYTES 7.9 %; MPV 8.2 fl. (7.2-11.1); NUCLEATED RBCS 0 /100WBC; PLATELET COUNT* 266 thou/uL (150-400); POLYS 68.6 %; RBC 2.97 mil/uL (4.50-6.00); RDW-CV 14.6 % (10.5-14.5); WBC 6.8 thou/uL (4.0-11.0)
[2017-09-29 02:55] LABS: MAGNESIUM 1.5 mg/dL (1.8-2.4); PHOSPHORUS* 3.6 mg/dL (2.5-4.9)
[2017-09-29 03:04] LABS: ALBUMIN 1.9 g/dL (3.4-5.0); CALCIUM 7.7 mg/dL (8.5-10.1); CREATININE 1.2 mg/dL (0.6-1.3); POTASSIUM 4.1 mmol/L (3.5-5.1); TOTAL BILIRUBIN 0.4 mg/dL (<0.1-1.0); TOTAL PROTEIN 6.2 g/dL (6.4-8.2)
[2017-09-29 03:35] VITALS: BP 133/61
[2017-09-29 11:12] LABS: URINE BILIRUBIN NEGATIVE (Negative); URINE BLOOD TRACE (Negative); URINE CLARITY CLEAR; URINE COLOR YELLOW; URINE GLUCOSE-RANDOM NEGATIVE (Negative); URINE KETONES TRACE (Negative); URINE LEUKOCYTES-REFLEX NEGATIVE (Negative); URINE NITRITE-REFLEX NEGATIVE (Negative); URINE PROTEIN NEGATIVE (Negative); URINE SPECIFIC GRAVITY >= 1.030 (1.005-1.030); URINE UROBILINOGEN 0.2 E.U./dl (0.2-1.0)
[2017-09-29 16:00] VITALS: BP 131/55
[2017-09-29 20:30] VITALS: BP 155/67
[2017-09-29 23:05] VITALS: BP 148/50
[2017-09-30 03:41] VITALS: BP 134/58
[2017-09-30 05:15] LABS: ABSOLUTE BASOPHILS 0.1 thou/uL (0.0-0.2); ABSOLUTE EOSINOPHILS 0.2 thou/uL (0.0-0.7); ABSOLUTE LYMPHOCYTES 1.5 thou/uL (0.8-5.3); ABSOLUTE MONOCYTES 0.5 thou/uL (0.0-1.2); ABSOLUTE NEUTROPHILS 4.4 thou/uL (1.6-8.1); EOSINOPHILS 3.5 %; HEMATOCRIT 23.2 % (42.0-52.0); HEMOGLOBIN 7.5 gm/dL (14.0-18.0); LYMPHOCYTES 21.9 %; MCH 26.2 pg (26.0-34.0); MCHC 32.5 g/dL (28.0-37.0); MCV 80.4 fL (80.0-100.0); MONOCYTES 7.5 %; MPV 8.1 fl. (7.2-11.1); NUCLEATED RBCS 0 /100WBC; PLATELET COUNT* 271 thou/uL (150-400); POLYS 66.1 %; RBC 2.88 mil/uL (4.50-6.00); RDW-CV 14.6 % (10.5-14.5); WBC 6.7 thou/uL (4.0-11.0)
[2017-09-30 05:32] LABS: CALCIUM 7.9 mg/dL (8.5-10.1); CREATININE 1.2 mg/dL (0.6-1.3); POTASSIUM 3.6 mmol/L (3.5-5.1)
[2017-09-30 12:00] VITALS: BP 123/67
[2017-09-30 16:20] VITALS: BP 138/69
[2017-09-30 19:45] VITALS: BP 167/60
[2017-10-01] VITALS: BP 137/55
[2017-10-01 04:42] LABS: CALCIUM 7.7 mg/dL (8.5-10.1); CREATININE 1.3 mg/dL (0.6-1.3); MAGNESIUM 1.4 mg/dL (1.8-2.4); POTASSIUM 3.6 mmol/L (3.5-5.1)
[2017-10-01 04:49] LABS: HEMATOCRIT 22.7 % (42.0-52.0); HEMOGLOBIN 7.5 gm/dL (14.0-18.0); MCH 26.2 pg (26.0-34.0); MCHC 32.8 g/dL (28.0-37.0); MCV 79.8 fL (80.0-100.0); MPV 8.1 fl. (7.2-11.1); RBC 2.85 mil/uL (4.50-6.00); RDW-CV 14.8 % (10.5-14.5)
--- NOTE | 2017-10-01 11:43 | CON ---
[address] [address] CONSULTATION Name: LELE NOLAN Room: [address] IN .R.#: [id number] Admission: 09/26/17 Attend Phys: Facundo Rajput DO Discharge: Date of : 40 Report #: [id number] THIS REPORT FOR: //name// CC: Facundo Díaz DATE OF SERVICE: 09/28/[address] Marshall. HISTORY OF PRESENT ILLNESS: This is a 77-year-old gentleman. Previous history includes a history of COPD. The patient is on long-term oxygen therapy. The patient, however, is not on long-term prednisone. The patient was only recently admitted to this hospital and underwent a right hemicolectomy for a colon cancer and did have a prolonged stay in this hospital. The patient has now been readmitted 2 days ago due to discharge from his abdomen and there is a fistula suspected. The patient's respiratory status is at baseline. He usually uses 3 liters oxygen since last admission. He has been on 4 liters. There is no increase in shortness of breath, cough. No increase in upper respiratory complaints, no throat complaints. No swelling of lower extremities, no calf pain. The patient did have a CT of the abdomen and pelvis performed and based on this there is suspicion that there may be a lung mass, which is the reason for this consultation. PAST MEDICAL HISTORY: COPD on long-term oxygen as mentioned, not on long-term prednisone, recent right hemicolectomy for a colon cancer. The patient's last available echocardiogram is from about a year ago and shows a normal left ventricular ejection fraction and no elevation in right heart pressures. Hyperlipidemia, hypertension, C-spine fusion, hernia repair, knee arthroplasty. SOCIAL HISTORY: There is an extensive history of smoking. The patient has now discontinued. No known history of heavy alcohol use or illegal drug use. ALLERGIES: BEE STINGS. FAMILY HISTORY: Negative for heart disease. CURRENT MEDICATIONS: List in [employer] reviewed. HOME MEDICATIONS: List also in [employer] reviewed. PHYSICAL EXAMINATION: GENERAL: Alert, awake and oriented. VITAL SIGNS: In the records reviewed. He is on 4 liters nasal cannula and is saturating 98%. HEENT: There are white spots present in his throat as well as mouth, [place] [address] CONSULTATION Name: LELE NOLAN Room: [address] IN [facility]#: [id number] Admission: 09/26/17 Attend Phys: Facundo Rajput, Discharge: Date of : 40 Report #: [id number] towards the inner side of his cheeks. It is consistent with thrush. NECK: Does not show raised JVP. CHEST: Essentially clear to auscultation. HEART: Regular, no murmur. ABDOMEN: Soft. There is a EDWAR drain in place. LOWER EXTREMITIES: No edema, no calf tenderness. IMAGING: I reviewed the chest. Only part of the abdomen and pelvis, I am not able to identify a mass. LABORATORY DATA: The patient's CBC as well as chemistries are in [facility] and these are reviewed. ASSESSMENT AND PLAN: 1. Chronic obstructive pulmonary disease with suspicion of lung mass. As mentioned, I am not able to identify any definite mass on his CT of the abdomen and pelvis regardless, since the suspicion has been raised. I feel that will be reasonable to clarify by doing a CT chest without contrast and the same is ordered. The patient remains on oxygen. We will continue nebulized bronchodilators. He does not appear to be actively bronchospastic at this time. Regardless, I will go ahead and order nebulized bronchodilators. 2. Intraabdominal abscess/possibility of fistula/recent right hemicolectomy for colon cancer. Would defer management to the other services. The patient is on broad spectrum antibiotics. 3. Thrush. Fluconazole ordered. Recommend checking and following LFTs. Thanks for this consultation. <ELECTRONICALLY SIGNED> By: Sean Hoff MD 10/01/17 1143 1310 1905Asarah Hoff MD /nt
[2017-10-01 16:25] VITALS: BP 122/76
--- NOTE | 2017-10-01 16:51 | 2DMMODE ---
[place] [address] 2 D/M-MODE ECHOCARDIOGRAM Name: LELE NOLAN Room: [address] ADM IN .R.#: [id number] Admission: 09/26/17 Attend Phys: Facundo Rajput DO Discharge: Date of : 40 Date of Service: 10/01/17 1651 Report #: [id number] THIS REPORT FOR: //name// APPROVED REPORT Study performed: 10/01/2017 15:19:13 EXAM: Comprehensive 2D, Doppler, and color-flow Echocardiogram Patient Location: Bedside BSA: 2.29 HR: 71 bpm BP: 137/55 mmHg Other Information Study Quality: Technically Difficult Indications Sepsis Left Ventricle Left ventricle is normal size. moderate hypokinesis noted of the inferior wall There is normal left ventricular wall thickness. Left ventricular systolic function is normal. The left ventricular ejection fraction is within the normal range. LVEF is 50-55%. Right Ventricle The right ventricle is normal size. The right ventricular systolic function is normal. Atria The left atrium size is normal. The right atrium size is normal. Aortic Valve The Aortic valve is sclerotic. No aortic regurgitation is present. There is no aortic valvular stenosis. Mitral Valve The mitral valve is normal in structure. There is no mitral valve regurgitation noted. No evidence of mitral valve stenosis. Tricuspid Valve The tricuspid valve is normal in structure. There is no tricuspid [place] [address] 2 D/M-MODE ECHOCARDIOGRAM Name: OVIDIOLELE Mahad Room: [address] IN M.R.#: [id number] Admission: 09/26/17 Attend Phys: Facundo Rajput DO Discharge: Date of : 40 Date of Service: 10/01/171650 Report #: [id number] Pulmonic Valve The pulmonary valve is normal in structure. Trace pulmonic regurgitation. Great Vessels The aortic root is normal in size. IVC is not well visualized. Pericardium There is no pericardial effusion. <Conclusion> LVEF is 50-55%. moderate hypokinesis noted of the inferior wall <ELECTRONICALLY SIGNED> By: Joe Laura MD, FACC 10/01/171650 50 50 Joe Laura MD, FACC /INF
[2017-10-01 21:00] VITALS: BP 140/67
[2017-10-02 06:56] LABS: HEMATOCRIT 24.9 % (42.0-52.0); HEMOGLOBIN 7.9 gm/dL (14.0-18.0); MCH 25.8 pg (26.0-34.0); MCHC 31.9 g/dL (28.0-37.0); MPV 7.8 fl. (7.2-11.1); RBC 3.07 mil/uL (4.50-6.00); WBC 6.1 thou/uL (4.0-11.0)
[2017-10-02 07:13] LABS: CALCIUM 7.8 mg/dL (8.5-10.1); CREATININE 1.2 mg/dL (0.6-1.3); MAGNESIUM 2.3 mg/dL (1.8-2.4); POTASSIUM 3.7 mmol/L (3.5-5.1); TOTAL BILIRUBIN 0.2 mg/dL (<0.1-1.0); TOTAL PROTEIN 7.1 g/dL (6.4-8.2)
[2017-10-02 08:50] VITALS: BP 156/64
[2017-10-02] MEDS ORDERED: ZYVOX600 MG PO (13:16)
== END 2017-10-02 15:13 | disposition home health service (06) | DRG 862 ==
LOC: M.ERS 10:14 → M.TBA-ER 13:26 → M.3W 13:26
PROVIDERS: Emergency Medicine Emergency Medical Services; Family Medicine; Internal Medicine Critical Care Medicine; Surgery; ADMIT Surgery
PROC: 0W9F3ZZ Drainage of Abdominal Wall, Percutaneous Approach (ICD-10-PCS; principal; 2017-09-27)
PROC: 02HV33Z Insertion of Infusion Device into Superior Vena Cava, Percutaneous Approach (ICD-10-PCS; 2017-10-01)
DX: T81.4XXA Infection following a procedure, initial encounter (principal); E43 Unspecified severe protein-calorie malnutrition; A41.9 Sepsis, unspecified organism; K63.0 Abscess of intestine; L02.211 Cutaneous abscess of abdominal wall; E66.2 Morbid (severe) obesity with alveolar hypoventilation; W01.0XXA Fall on same level from slipping, tripping and stumbling without subsequent striking against object, initial encounter; J44.9 Chronic obstructive pulmonary disease, unspecified; E78.5 Hyperlipidemia, unspecified; M19.90 Unspecified osteoarthritis, unspecified site; I25.10 Atherosclerotic heart disease of native coronary artery without angina pectoris; Z98.1 Arthrodesis status; B37.9 Candidiasis, unspecified; Y83.8 Other surgical procedures as the cause of abnormal reaction of the patient, or of later complication, without mention of misadventure at the time of the procedure; K21.9 Gastro-esophageal reflux disease without esophagitis; N18.9 Chronic kidney disease, unspecified; I12.9 Hypertensive chronic kidney disease with stage 1 through stage 4 chronic kidney disease, or unspecified chronic kidney disease; G89.18 Other acute postprocedural pain; R91.8 Other nonspecific abnormal finding of lung field; E83.42 Hypomagnesemia; Z90.49 Acquired absence of other specified parts of digestive tract; Y93.89 Activity, other specified; Y92.89 Other specified places as the place of occurrence of the external cause; Y99.8 Other external cause status; Z87.11 Personal history of peptic ulcer disease; I25.2 Old myocardial infarction; Z79.899 Other long term (current) drug therapy; Z91.030 Bee allergy status; Z87.891 Personal history of nicotine dependence; Z85.038 Personal history of other malignant neoplasm of large intestine; Z99.81 Dependence on supplemental oxygen; Z68.35 Body mass index [BMI] 35.0-35.9, adult; Z22.322 Carrier or suspected carrier of Methicillin resistant Staphylococcus aureus

== ENCOUNTER 2018-05-05 18:15 | Inpatient (IN) | payer OTHER ==
[~2018-05-05] VITALS: Ht 177.8 cm; Wt 122.5 kg
[2018-05-05 11:11] VITALS: BP 104/59
[2018-05-05 18:17] VITALS: BP 201/81
[2018-05-05 18:45] LABS: ABSOLUTE EOSINOPHILS 0.1 thou/uL (0.0-0.7); ABSOLUTE MONOCYTES 0.9 thou/uL (0.0-1.2); ABSOLUTE NEUTROPHILS 12.1 thou/uL (1.6-8.1); BASOPHILS 0.2 %; EOSINOPHILS 0.7 %; HEMATOCRIT 40.1 % (42.0-52.0); HEMOGLOBIN 12.6 gm/dL (14.0-18.0); LYMPHOCYTES 13.5 %; MCH 26.6 pg (26.0-34.0); MCHC 31.3 g/dL (28.0-37.0); MCV 84.9 fL (80.0-100.0); MONOCYTES 5.9 %; MPV 8.5 fl. (7.2-11.1); NUCLEATED RBCS 0 /100WBC; PLATELET COUNT* 218 thou/uL (150-400); POLYS 79.7 %; RBC 4.72 mil/uL (4.50-6.00); RDW-CV 16.1 % (10.5-14.5); WBC 15.2 thou/uL (4.0-11.0)
[2018-05-05 18:55] LABS: ANION GAP < 0 mmol/L (7-16); APTT 28.7 Seconds (25.0-31.3); BUN 13 mg/dL (7-18); CALCIUM 8.4 mg/dL (8.5-10.1); CHLORIDE 103 mmol/L (98-107); CO2 38 mmol/L (21-32); GLUCOSE 120 mg/dL (70-99); PROTIME 10.7 Seconds (9.20-11.50); SODIUM 140 mmol/L (136-145)
[2018-05-05 19:05] LABS: ALBUMIN 3.6 g/dL (3.4-5.0); ALKALINE PHOSPHATASE 80 U/L (46-116); LIPASE 68 U/L (73-393); MAGNESIUM 1.2 mg/dL (1.8-2.4); NT-PRO BRAIN NAT PEPTIDE 511 pg/mL (<300); SGOT 22 U/L (15-37); SGPT 26 U/L (30-65); TOTAL BILIRUBIN 0.5 mg/dL (<0.1-1.0); TOTAL PROTEIN 8.1 g/dL (6.4-8.2); TROPONIN-I LEVEL <0.06 ng/mL (<0.06)
[2018-05-05 20:01] VITALS: BP 136/57
[2018-05-05 20:40] VITALS: BP 96/62
[2018-05-06 04:44] VITALS: BP 142/66
--- NOTE | 2018-05-06 09:23 | EKG ---
[place] [address] ELECTROCARDIOGRAM REPORT Name: LELE NOLAN Room: [address] ADM IN ..#: [id number] Admission: 05/05/18 Attend Phys: Onel Ferguson MD Discharge: Date of : 40 Report #: [id number] THIS REPORT FOR: //name// [facility] ED Test Date: 2018-05-05 Test Time: 18:24:43 Pat Name: LELE NOLAN Department: Room: [facility] Gender: Banquet Stewardess: Macy FERRELL : 1940 Requested By: Justin Villarreal Order Number: [id number] MD: Joe Laura Measurements Intervals [place] Rate: 97 P: 17 AK: 173 QRS: -71 QRSD: 134 T: 41 QT: 369 QTc: 469 Interpretive Statements Sinus rhythm Right bundle branch block Inferior infarct, old Lateral leads are also involved Baseline wander in lead(s) V4 Compared to ECG 09/28/2017 08:52:01 Right bundle-branch block now present Electronically Signed On 05-06-2018 9:23:34 CDT by Joe Laura [email or web address] <ELECTRONICALLY SIGNED> By: Joe Laura MD, FAC 05/06/18 0923 1824 1824 Joe Laura MD, FAC /EPI
[2018-05-06 10:15] LABS: BE -0.3 mmol/L (-2 to +3); HCO3 25.5 mmol/L (22.0-26.0); PCO2 46.5 mmHg (35.0-45.0); PO2 79.4 mmHg (75.0-100.0); pH 7.357 (7.340-7.450)
[2018-05-06 11:47] VITALS: BP 132/55
[2018-05-06] MEDS ORDERED: PLAVIX 75 MG TA75 M1 PO (12:37)
[2018-05-06 16:08] VITALS: BP 135/87
[2018-05-06 20:25] VITALS: BP 127/54
[2018-05-07] VITALS (7 sets, daily range): BP systolic 108–161; BP diastolic 48–77
[2018-05-07 05:04] LABS: HEMATOCRIT 33.3 % (42.0-52.0); HEMOGLOBIN 10.7 gm/dL (14.0-18.0); MCH 27.1 pg (26.0-34.0); MCV 84.8 fL (80.0-100.0); MPV 9.1 fl. (7.2-11.1); NUCLEATED RBCS 0 /100WBC; PLATELET COUNT* 196 thou/uL (150-400); RBC 3.93 mil/uL (4.50-6.00); RDW-CV 16.4 % (10.5-14.5); WBC 16.5 thou/uL (4.0-11.0)
[2018-05-07 05:41] LABS: ALBUMIN 3.2 g/dL (3.4-5.0); CALCIUM 8.3 mg/dL (8.5-10.1); CREATININE 1.2 mg/dL (0.6-1.3); POTASSIUM 3.8 mmol/L (3.5-5.1); TOTAL BILIRUBIN 0.2 mg/dL (<0.1-1.0); TOTAL PROTEIN 6.7 g/dL (6.4-8.2)
[2018-05-07 05:48] LABS: ABSOLUTE MONOCYTES 0.2 thou/uL (0.0-1.2); ABSOLUTE NEUTROPHILS 14.4 thou/uL (1.6-8.1); PLATELET ESTIMATE ADEQUATE
[2018-05-07 05:49] LABS: ANISOCYTOSIS 1+; POIKILOCYTOSIS 1+
--- NOTE | 2018-05-07 08:08 | CON ---
[address] [address] CONSULTATION Name: LELE NOLAN Room: [address] IN M.R.#: [id number] Admission: 05/05/18 Attend Phys: Onel Ferguson MD Discharge: Date of : 40 Report #: [id number] THIS REPORT FOR: //name// CC: Sha Díaz MD REQUESTING PHYSICIAN: Dr. Calderón. REASON FOR CONSULTATION: Possible pneumonia, COPD exacerbation. DISCUSSION: The patient is a 78-year-old man who quit smoking about 8 years ago. He has history of underlying COPD, which is O2, though has not been steroid dependent. He has been generally doing fairly well at home. However, began having more trouble within 24 hours of being brought to the emergency department. He noticed he was getting much more short of breath. He was having some increased cough and was congested. He was coughing up just small amounts of mucus hematocrit, but it was discolored and he notes it was very thick. No hemoptysis. He was not having any chest pain. Was not aware of any fevers at home. He was evaluated in the emergency department, noted to be in moderate respiratory distress. Imaging studies done. There is question of an early pneumonia. He has been started on antibiotics, also aggressive bronchodilator therapy. Today, he is feeling much better. He did spike a fever last night at 101.8. He has been on 4 L of oxygen here. He has been on Rocephin and Zithromax. He has a history of COPD as noted. He has been seen in our office, so it has been quite a few years. He did have full pulmonary function studies done here about 4 years ago. At that time, his FEV1 was 2.13, which was 68% of predicted. His FEV1/FVC ratio is 52%. Those studies were consistent with a moderate obstructive process. At home, he is managed with a nebulizer, which from his description has albuterol and ipratropium bromide in it, though he uses only twice a day. Previously had been on Spiriva, but he was unable to afford that. He does have a ProAir inhaler at home to use on a p.r.n. basis, so he notes he rarely uses that. He has a fairly extensive past medical history. Does have a history of coronary artery disease, had an AZ last year. Did have a stent placed. He is no longer on anticoagulation therapy for that. He has also had a laparoscopic right hemicolectomy in August of this year for colon cancer. Also has an adenocarcinoma, did have 2/10 lymph nodes, which were involved. He notes he has followed up with Dr. Pro, but was told he needed to return in a year and is not receiving any radiation or chemotherapy. Also has a history of depression, cervical disk surgery, right knee surgery, dyslipidemia, ischemic colitis, dyslipidemia, bullet [place] [address] CONSULTATION Name: LELE NOLAN Room: [address]#: [id number] Admission: 05/05/18 Attend Phys: Onel Ferguson MD Discharge: Date of : 40 Report #: [id number] SOCIAL HISTORY: He is . However, his ex- continues to share his residence. 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 He used to smoke a pack and half of cigarettes per day until he quit. No alcohol usage. FAMILY HISTORY: Positive for heart disease and COPD. REVIEW OF SYSTEMS: A 12-point ROS was done. No positives as above. He denies awareness of any fevers at home. Weight has been stable. Note he does have a Trilogy at home though it is not clear when he received that. He has been using it more consistently recently though it has not made a difference for him. That was provided for him by Dr. Arjun Solis. Denies any difficulty swallowing. Not having any issues with nausea, vomiting. No blood in his stools. No syncopal episodes. Otherwise negative. PHYSICAL EXAMINATION: GENERAL APPEARANCE: Large man. He is alert, cooperative, resting in bed. He has O2 running via nasal cannula, 4 L. He is conversant and able to speak in full sentences. HEENT: Head is normocephalic. Sclerae are nonicteric. Mucous membranes are little dry. NECK: Large and supple, without adenopathy. No JVD is noted. HEART: Regular rate. Occasional extrasystole. No S3 is heard. LUNGS: Reveal breath sounds to be diminished. He has a prolonged expiratory phase. Few late expiratory wheezes are heard. ABDOMEN: Very large, but obese. No guarding or rebound tenderness. He has a small midline surgical incision, which is well healed. No tenderness. No clubbing is noted. Just has some arthritic changes of his hands. LOWER EXTREMITIES: No significant edema is noted. SKIN: Warm and dry. NEUROLOGIC: He is alert and oriented times 3, but he is just not a fair historian. LABORATORY AND X-RAY FINDINGS: Chest x-ray did show mild patchy infiltrate, left lower lobe consistent with possible pneumonia. may have an early infiltrate seen in the right base as well. I do note he had CT scans done of his chest when he was here in the hospital earlier this year. In September, scan at that time revealed spiculated mass in the left apex. Also changes of bronchiectasis on that scan. Emphysematous changes were noted. On his chemistries, BUN is 17, creatinine of 1.3, potassium is 3.6, calcium 8.4. Albumin 3.2, lactic acid 4.1, up from 2.4 on admission. ProBNP was only 511. White blood cell count 21987, hemoglobin 12.0, hematocrit 38, and platelets were normal at 200,000. Arterial blood gases done this morning: He had a pH of 7.36, pCO2 of 47, pO2 of 79, bicarbonate of 25 with a saturation of 95%, that was on the 4 L. Blood cultures have been sent. IMPRESSION: [place] [address] CONSULTATION Name: LELE NOLAN Room: [address] IN [facility]#: [id number] Admission: 05/05/18 Attend Phys: Onel Ferguson MD Discharge: Date of : 40 Report #: [id number] 1. Acute respiratory failure superimposed on chronic respiratory failure. At baseline, has evidence of moderate chronic obstructive pulmonary disease. Has been O2, though not steroid dependent. He does use Trilogy at night. He is actively bronchospastic but that is improving. Probably has an early lower respiratory tract infection. 2. History of colon cancer, status post resection. Apparently did not have any additional chemoradiation done. 3. Coronary artery disease, status post stent placement in 2017. 4. Obesity. RECOMMENDATIONS: 1. Agree with antibiotics in the form of azithromycin and ceftriaxone. 2. Continue with neb treatments with albuterol and ipratropium bromide, but will increase the frequency to every 4 hours with p.r.n. albuterol. 3. May need a followup CT chest while here. By his account, he did have a PET scan at the [facility] where he saw Dr. Pro though those results are not available. According to the patient, he was told there was nothing that was concerning. <ELECTRONICALLY SIGNED> By: Sweetie Espinoza MD 05/07/18 0808 1546 [id number] Espinoza MD /nt
[2018-05-08 00:58] VITALS: BP 129/55
[2018-05-08 04:54] VITALS: BP 135/62
[2018-05-08 06:03] LABS: CALCIUM 8.2 mg/dL (8.5-10.1); POTASSIUM 4.2 mmol/L (3.5-5.1)
[2018-05-08 07:20] VITALS: BP 140/62
[2018-05-08 11:03] VITALS: BP 107/68
[2018-05-08] MEDS ORDERED: LEVAQUIN 750 M750 MG PO (12:59)
[2018-05-08] MEDS ORDERED: PREDNISONE 10 M10 M1 PO (13:02)
[2018-05-08] MEDS ORDERED: PRINIVIL5 MG PO (13:07)
[2018-05-08 13:43] VITALS: BP 107/68
== END 2018-05-08 14:55 | disposition home health service (06) | DRG 871 ==
LOC: M.ERS 18:15 → M.2W 18:47 → M.TBA-ER 18:47 → M.2W 20:12
PROVIDERS: Family Medicine
DX: A41.9 Sepsis, unspecified organism (principal); I50.31 Acute diastolic (congestive) heart failure; J96.21 Acute and chronic respiratory failure with hypoxia; J15.9 Unspecified bacterial pneumonia; J44.1 Chronic obstructive pulmonary disease with (acute) exacerbation; K57.92 Diverticulitis of intestine, part unspecified, without perforation or abscess without bleeding; J44.0 Chronic obstructive pulmonary disease with (acute) lower respiratory infection; E66.2 Morbid (severe) obesity with alveolar hypoventilation; M16.12 Unilateral primary osteoarthritis, left hip; M47.9 Spondylosis, unspecified; N18.3 Chronic kidney disease, stage 3 (moderate); E78.5 Hyperlipidemia, unspecified; I25.10 Atherosclerotic heart disease of native coronary artery without angina pectoris; Z83.6 Family history of other diseases of the respiratory system; Z88.8 Allergy status to other drugs, medicaments and biological substances; Z87.11 Personal history of peptic ulcer disease; I25.2 Old myocardial infarction; Z85.038 Personal history of other malignant neoplasm of large intestine; Z82.49 Family history of ischemic heart disease and other diseases of the circulatory system; Z68.38 Body mass index [BMI] 38.0-38.9, adult; Z95.5 Presence of coronary angioplasty implant and graft; Z87.891 Personal history of nicotine dependence; Z28.21 Immunization not carried out because of patient refusal

== ENCOUNTER 2018-06-01 10:50 | Inpatient (IN) | payer OTHER ==
[~2018-06-01] VITALS: Ht 177.8 cm; Wt 115.7 kg
[~2018-06-01 10:50] MED LIST changes: +LEVAQUIN 750 M750 MG PO; +PLAVIX 75 MG TA75 M1 PO; +PRINIVIL5 MG PO
[2018-06-01 10:52] VITALS: BP 143/48
[2018-06-01] MEDS ORDERED: ASPIR 8181 MG PO (11:11)
[2018-06-01 11:40] LABS: HEMATOCRIT 38.2 % (42.0-52.0); HEMOGLOBIN 12.2 gm/dL (14.0-18.0); MCH 27.4 pg (26.0-34.0); MCV 85.6 fL (80.0-100.0); MPV 8.1 fl. (7.2-11.1); NUCLEATED RBCS 0 /100WBC; PLATELET COUNT* 237 thou/uL (150-400); RBC 4.46 mil/uL (4.50-6.00); RDW-CV 15.6 % (10.5-14.5); WBC 11.8 thou/uL (4.0-11.0)
[2018-06-01 11:51] LABS: INFLUENZA A ANTIGEN None Detected (None Detect); INFLUENZA B ANTIGEN None Detected (None Detect)
[2018-06-01 11:53] LABS: PROTIME 10.5 Seconds (9.20-11.50)
[2018-06-01 12:03] LABS: CALCIUM 8.4 mg/dL (8.5-10.1); CREATININE 1.3 mg/dL (0.6-1.3)
[2018-06-01 12:08] LABS: ALBUMIN 3.2 g/dL (3.4-5.0); TOTAL BILIRUBIN 0.4 mg/dL (<0.1-1.0); TOTAL PROTEIN 7.6 g/dL (6.4-8.2); TROPONIN-I LEVEL 0.25 ng/mL (<0.06)
[2018-06-01 12:18] LABS: ABSOLUTE LYMPHOCYTES 0.7 thou/uL (0.8-5.3); ABSOLUTE MONOCYTES 0.9 thou/uL (0.0-1.2); ABSOLUTE NEUTROPHILS 10.1 thou/uL (1.6-8.1); ANISOCYTOSIS 1+; PLATELET ESTIMATE ADEQUATE; POIKILOCYTOSIS 1+
[2018-06-01 13:04] VITALS: BP 111/49
[2018-06-01 15:17] VITALS: BP 123/58
[2018-06-01 17:32] LABS: BE -0.3 mmol/L (-2 to +3); HCO3 25.2 mmol/L (22.0-26.0); PCO2 44.6 mmHg (35.0-45.0)
[2018-06-01 17:39] LABS: PO2 57.2 mmHg (75.0-100.0)
[2018-06-01 20:38] VITALS: BP 107/48
[2018-06-02] VITALS (7 sets, daily range): BP systolic 116–159; BP diastolic 49–78
[2018-06-03 04:00] VITALS: BP 153/65
[2018-06-03 08:00] VITALS: BP 132/71
--- NOTE | 2018-06-03 09:59 | EKG ---
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: FRANCISCO : 1940 Requested By: Calderon Maynard Order Number: [id number] MD: Joe Laura Measurements Intervals [place] Rate: 113 P: 12 ME: 150 QRS: -76 QRSD: 86 T: 63 QT: 310 QTc: 425 Interpretive Statements Sinus tachycardia Probable left atrial enlargement Consider right ventricular hypertrophy Inferior infarct, old Baseline wander in lead(s) V3 Compared to ECG 05/05/2018 18:24:43 Sinus rhythm no longer present Myocardial infarct finding still present Electronically Signed On 06-03-2018 9:58:55 [employer] ENGINEER by Joe Laura [email or web address] <ELECTRONICALLY SIGNED> By: Joe Laura MD, FACC 06/03/18 0958 1056 1056 Joe Laura MD, [facility] /EPI
[2018-06-03 10:15] LABS: CALCIUM 8.4 mg/dL (8.5-10.1); CREATININE 1.1 mg/dL (0.6-1.3); POTASSIUM 4.2 mmol/L (3.5-5.1)
[2018-06-03 10:27] LABS: HEMATOCRIT 36.3 % (42.0-52.0); HEMOGLOBIN 11.6 gm/dL (14.0-18.0); MCH 27.5 pg (26.0-34.0); MCHC 32.1 g/dL (28.0-37.0); MCV 85.6 fL (80.0-100.0); MPV 8.4 fl. (7.2-11.1); NUCLEATED RBCS 0 /100WBC; PLATELET COUNT* 258 thou/uL (150-400); RBC 4.24 mil/uL (4.50-6.00); RDW-CV 15.5 % (10.5-14.5); WBC 13.2 thou/uL (4.0-11.0)
[2018-06-03 10:49] LABS: ABSOLUTE LYMPHOCYTES 1.8 thou/uL (0.8-5.3); ABSOLUTE MONOCYTES 0.1 thou/uL (0.0-1.2); ABSOLUTE NEUTROPHILS 11.2 thou/uL (1.6-8.1)
[2018-06-03 10:50] LABS: PLATELET ESTIMATE ADEQUATE
[2018-06-03 11:47] VITALS: BP 111/65
[2018-06-03 16:00] VITALS: BP 152/52
--- NOTE | 2018-06-03 16:47 | CARDNUC ---
[place] [address] CARDIAC NUCLEAR IMAGING REPORT Name: LELE NOLAN Room: [address] IN [facility]#: [id number] Admission: 06/01/18 Attend Phys: Ck Scanlon Discharge: Date of : 40 Date of Service: 06/03/18 1647 Report #: [id number] THIS REPORT FOR: //name// APPROVED REPORT Study performed: 06/02/2018 09:48:00 Indication: Chest pain, Dyspnea Patient Location: In-Patient Room #: 202 Stress Tech: Ashley Licona Stress Nurse: Mabel Fields RN Ht: 5 ft 10 in Wt: 274 lbs BSA: 2.39 m2 BMI: 39.31 Medical History Medical History: Abdominal stent,, Angina, COPD, Former Smoker, Angina, HTN, Hyperlipidemia, Obesity , SOB Medications: ASA, 81 mg, Lisinopril, Atorvastatin, NTG Allergies: Bee Stings Cardiac Risk Factors: Age, HTN, Hyperlipidemia, SOB, Tobacco History (Former) Previous Cardiac Procedures: None Pretest Chest Pain Characteristics: No chest pain Physical Disabilities: Legs, unsteady gait, COPD Meds Held (24 hrs): NTG Resting Data Rest SPECT myocardial perfusion imaging was performed in supine position 10 minutes following the intravenous injection of 1.2 mCi of Thallium. Time of rest injection: 15:40 Administration Route: IV Administration Site: Left Wrist Pharmacologic Stress Pharmacologic stress test was performed by injecting Regadenoson 0.4 mg IV push over 10-15 seconds immediately followed by the intravenous injection of 4.7 mCi of Thallium. Time of stress injection: 10:55 Administration Route: IV Administration Site: Left Wrist Heart Rate at time of stress injection: 93 bpm. Gated Stress SPECT was performed 15 [place] [address] CARDIAC NUCLEAR IMAGING REPORT Name: LELE NOLAN Room: [address] IN ..#: [id number] Admission: 06/01/18 Attend Phys: Ck Scanlon Discharge: Date of : 40 Date of Service: 06/03/18 1647 Report #: [id number] injection. The images were gated to evaluate regional wall motion and calculate left ventricular ejection fraction. Stress Test Details Stress Test: Pharmacologic stress testing performed using 0.4 mg of regadenoson per 5 mL given IV over 10 seconds. Reason for pharmacologic stress test: physical limitation, leg weakness/pain, unsteady gait, COPD. HR Max Heart Rate (APMHR): 142 bpm Resting HR: 78 bpm Target HR (85% APMHR): 120 bpm Max HR Achieved: 93 bpm % of APMHR: 65 Recovery HR: 88 bpm BP Resting BP: 127/72 mmHg Recovery BP: 130/60 mmHg ECG Resting ECG: Sinus Rhythm, normal EKG Stress ECG: Sinus Rhythm, normal EKG ST Change: None Arrhythmia: None Recovery ECG: Sinus Rhythm, normal EKG Recovery ST Change: None Recovery Arrhythmia: None Clinical Reason for Termination: Completed protocol Stress Symptoms: Dizziness, Leg Fatigue, Headache, Brief syncope episode Exercise duration: 0 min 0 sec Exercise capacity: 1.00 METs The patient tolerated Lexiscan infusion without significant symptoms. Nurse Comments Patient stated his legs were in bad shape, weak and in pain, and is unsteady on his feet. Patient presented on 4 02 NC r/t COPD. Patient reported headache and lightheadedness then proceeded to roll eyes back in head and lean over to right side, brief syncope, patient was grabbed by nurse and tech to keep from sliding down in bed and he immediately came out of syncope episode less than 4 secoonds. Patient recovery unremarkable and patient [place] [address] CARDIAC NUCLEAR IMAGING REPORT Name: LELE NOLAN Mahad Room: [address]#: [id number] Admission: 06/01/18 Attend Phys: Ck Scanlon Discharge: Date of : 40 Date of Service: 06/03/18 1647 Report #: [id number] after caffeine and snack. Patient was escorted by staff via wheelchair to nuclear medicine for images. Stable at that time with no complaints. Stress ECG Conclusion The baseline 12-lead EKG shows sinus rhythm without significant ST or T wave abnormality. EKGs during and post Lexiscan infusion show sinus rhythm with no significant ST or T wave changes when compared to baseline. Study Quality Study: Fair Artifact: Mild Diaphragmatic artifact Study Data Post stress, the left ventricular ejection was 75%.. TID = 1.40. Perfusion Perfusion images show a moderate size mild intensity reversible defect involving the inferior wall. There is a small in size moderately reversible apical defect. Wall Motion Global left ventricular systolic function appears normal. Nuclear Conclusion ECG Findings: negative for ischemia Clinical Findings: negative for ischemia Nuclear Findings: positive for ischemia Exercise Capacity: not assessed Left Ventricular Function: normal Risk Study: high Myocardial perfusion images suggest ischemia involving the inferior wall as well as apex. Left ventricular systolic function is preserved. This is a moderate to high risk study. <Conclusion> The baseline 12-lead EKG shows sinus rhythm without significant ST or T wave abnormality. EKGs during and post Lexiscan infusion show sinus rhythm with no significant ST or T wave changes when compared to baseline. <ELECTRONICALLY SIGNED> By: Nikita Swartz MD, FACC 06/03/181646 46 46 Nikita Swartz MD, FACC /INF
--- NOTE | 2018-06-03 17:45 | 2DMMODE ---
[place] [address] 2 D/M-MODE ECHOCARDIOGRAM Name: LELE NOLAN Room: [address] ADM IN .R.#: [id number] Admission: 06/01/18 Attend Phys: Ck Scanlon Discharge: Date of : 40 Date of Service: 06/03/18 1745 Report #: [id number] THIS REPORT FOR: //name// APPROVED REPORT Study performed: 06/03/2018 16:18:59 EXAM: Comprehensive 2D, Doppler, and color-flow Echocardiogram Patient Location: Bedside BSA: 2.39 HR: 68 bpm BP: 132/71 mmHg Other Information Study Quality: Fair Indications CAD Chest Pain 2D Dimensions IVSd: 13.32 (7-11mm) LVOT Diam: 19.50 (18-24mm) LVDd: 48.97 mm PWd: 12.72 (7-11mm) Ascending Ao: 35.84 (22-36mm) LVDs: 38.93 (25-40mm) Aortic Root: 29.39 mm Volumes Left Atrial Volume (Systole) LA ESV Index: 9.70 mL/m2 Aortic Valve AoV Peak Dean.: 1.34 m/s AO Peak Gr.: 7.23 mmHg LVOT Max P.75 mmHg AO Mean Gr.: 4.08 mmHg LVOT Mean P.78 mmHg LVOT Max V: 0.97 m/s AO V2 VTI: 29.06 cm LVOT Mean V: 0.61 m/s CARLOTA (VTI): 2.32 cm2 LVOT V1 VTI: 22.57 cm Mitral Valve E/A Ratio: 0.64 MV Decel. Time: 252.78 ms MV E Max Dean.: 0.62 m/s MV PHT: 73.31 [place] [address] 2 D/M-MODE ECHOCARDIOGRAM Name: LELE NOLAN Room: [address] IN ..#: [id number] Admission: 06/01/18 Attend Phys: Ck Scanlon Discharge: Date of : 40 Date of Service: 06/03/18 1745 Report #: [id number] MVA (PHT): 3.00 cm2 TDI E/Lateral E': 8.86 E/Medial E': 7.75 Medial E' Dean.: 0.08 m/s Lateral E' Dena.: 0.07 m/s Pulmonary Valve PV Peak Dean.: 0.81 m/s PV Peak Gr.: 2.63 mmHg Tricuspid Valve RAP Estimate: 5.00 mmHg TR Peak Gr.: 41.65 mmHg RVSP: 46.65 mmHg PA Pressure: 46.65 mmHg Left Ventricle The left ventricle is normal size. inferior wall hypokinesis Mild concentric left ventricular hypertrophy. Left ventricular systolic function is normal. The left ventricular ejection fraction is within the normal range. LVEF is 50-55%. Grade I - abnormal relaxation pattern. Right Ventricle The right ventricle is normal size. The right ventricular systolic function is normal. Atria The left atrium size is normal. The right atrium size is normal. Aortic Valve The aortic valve is normal in structure. No aortic regurgitation is present. There is no aortic valvular stenosis. Mitral Valve There is mitral annular calcification. Trace mitral regurgitation. No evidence of mitral valve stenosis. Tricuspid Valve The tricuspid valve is normal in structure. Mild tricuspid regurgitation. estimated pa pressure 45 mm Hg Pulmonic Valve The pulmonary valve is normal in structure. Trace [place] [address] 2 D/M-MODE ECHOCARDIOGRAM Name: LELE NOLAN Room: [address] IN [facility]#: [id number] Admission: 06/01/18 Attend Phys: Ck Scanlon Discharge: Date of : 40 Date of Service: 06/03/18 1745 Report #: [id number] Great Vessels The aortic root is normal in size. IVC is normal in size and collapses >50% with inspiration. Pericardium There is no pericardial effusion. <Conclusion> Mild concentric left ventricular hypertrophy. LVEF is 50-55%. inferior wall hypokinesis Mild tricuspid regurgitation. estimated pa pressure 45 mm Hg <ELECTRONICALLY SIGNED> By: Joe Laura MD, FACC 06/03/181744 44 44 Joe Laura MD, FACC /INF
[2018-06-03 20:57] VITALS: BP 110/71
[2018-06-04] VITALS (14 sets, daily range): BP systolic 110–169; BP diastolic 57–90
[2018-06-04 05:25] LABS: CALCIUM 8.9 mg/dL (8.5-10.1); MAGNESIUM 1.7 mg/dL (1.8-2.4); POTASSIUM 4.8 mmol/L (3.5-5.1)
--- NOTE | 2018-06-04 15:03 | CON ---
[address] [address] CONSULTATION Name: LELE NOLAN Room: [address] IN M.R.#: [id number] Admission: 06/01/18 Attend Phys: Ramiro Vega Discharge: Date of : 40 Report #: [id number] THIS REPORT FOR: //name// CC: Nghia Scanlon HISTORY OF PRESENT ILLNESS: I was asked by Dr. Scanlon to see this 78-year-old white male in cardiology consultation for evaluation and treatment of chest pain with elevated troponins. This gentleman has a history of coronary artery disease and is status post coronary artery stents, he says, a little over a year ago. He says that was done here and Dr. Paige has been following him. He was hospitalized here a couple of weeks ago with pneumonia and sent home and then awakened this morning with chest pain. He described the chest pain as substernal. It was a pressure. It was a 5-6 on a scale of 10. There was no radiation of the pain. There were no associated symptoms other than a bit of shortness of breath. There was no radiation of the pain. He took a nitroglycerin and the pain went away within a few minutes. He has had pains like these before. He felt like he was coming down with pneumonia again as he has been coughing up quite a bit of greenish sputum. He had an increase in his chronic shortness of breath. This man does have COPD as well. He came to the Emergency Room and was subsequently admitted from there. His EKG showed sinus tachycardia. There was a possible old inferior infarct. There is a left axis deviation. 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 There were minor nonspecific ST-T abnormalities. His labs included an initial troponin of 0.25. The second troponin was 0.33 and the third was 0.18. He has not had any further chest pain. PAST MEDICAL HISTORY: Extensive. He has a history of colon cancer and has an abdominal fistula. He does have the COPD previously mentioned as well. ALLERGIES: ALLERGIC TO BEE STINGS. He has no medical allergies. HOME MEDICATIONS: Include AccuNeb, aspirin 81 mg daily, atorvastatin 40 mg daily, vitamin B12 at 500 mcg daily, iron 325 mg daily, folic acid 1 mg daily, gabapentin 600 mg t.i.d. for nerve pain, lisinopril 5 mg daily, p.r.n. nitroglycerin, Flomax 0.4 mg daily, Spiriva 1 puff daily and p.r.n. tramadol 50 mg as well as venlafaxine SR 37.5 mg daily. REVIEW OF SYSTEMS: Positive for cough, sputum production, shortness of breath, chest pain, dyspnea on exertion, and otherwise is negative for some 40 different complaints in 14 different system categories. Please see review of system form for details and negatives in review of systems. FAMILY HISTORY: Remarkable for Alzheimer disease in his mother. He is not sure what his father of. [place] [address] [address] CONSULTATION Name: LELE NOLAN Room: [address] IN [facility]#: [id number] Admission: 06/01/18 Attend Phys: Ramiro Vega Discharge: Date of : 40 Report #: [id number] SOCIAL HISTORY: He does not smoke. He did quit smoking 8 years ago. He does not drink. He was a heavy drinker in the past, but does not drink now. Does not use illegal drugs. PHYSICAL EXAMINATION: GENERAL: He presents as well-developed, well-nourished, obese white male, in no acute distress. VITAL SIGNS: Pulse is 79 and regular, blood pressure 121/78, respirations 16 and regular, temperature is 98 degrees. HEENT: His head was atraumatic. Eyes clear. NECK: Supple. There is no jugular venous distention or hepatojugular reflux. Thyroid is not enlarged. There is no adenopathy. SKIN: Warm and dry. Mucous membranes are moist. LUNGS: Clear to auscultation and percussion. There were decreased breath sounds diffusely. There is an increased expiratory phase. Breath sounds were particularly decreased in the bases. HEART: Revealed normal first and second heart sound, although somewhat distant. There were no murmurs, rubs, thrills, heaves or gallops. PMI is not displaced. The rhythm was regular, the rate was approximately 80. ABDOMEN: Soft, flat, nontender, no palpable masses, no organomegaly. EXTREMITIES: Reveal no cyanosis, clubbing or edema. NEUROLOGIC: The patient mentated normally, talked normally, moved all extremities normally. IMPRESSION: 1. Chest pain that could well be anginal. 2. Mildly elevated troponin, possibly related to the chest pain, but also possibly related to his probable pneumonia and possible sepsis and chronic obstructive pulmonary disease exacerbation. 3. Probable pneumonia. 4. Chronic obstructive pulmonary disease with exacerbation. 5. Possible sepsis. 6. Coronary artery disease. 7. Status post coronary artery stents. 8. Essential hypertension. 9. Hypercholesterolemia. RECOMMENDATION: He is to get a nuclear stress test and an echo. Thank you very much for asking me to see the patient. If there are any questions, please feel free to contact me. <ELECTRONICALLY SIGNED> By: Joe Laura MD, FACC 06/04/18 1503 0934 [id number]. Rashad Ignacio MD, FACC /nt
--- NOTE | 2018-06-04 17:28 | CARD ---
[address] [address] CARDIAC CATH REPORT Name: OVIDIOLELE Mahad Room: [address] IN ..#: [id number] Admission: 06/01/18 Attend Phys: Ramiro Vega Discharge: Date of : 40 Report #: [id number] THIS REPORT FOR: //name// APPROVED REPORT Study performed: 06/04/2018 09:45:37 Patient Details Patient Status: In-Patient Room #: 202 The patient is a 78 year-old male Event Personnel Lucila Gonzalez, Stephanie Hayes RN RN, Lucila Cade Langston, Anthony ARRT (R) Monitor, Nikita Swartz Detacher Procedures Performed Left Heart Cath w/or w/o Coronaries Indication Chest pain Risk Factors Coronary Artery Disease Previous Procedures/Diagnoses Previous PCI Procedure Narrative The patient was brought electively to the Cardiac Catheterization Laboratory and was prepped and draped in a sterile manner. The right wrist was infiltrated with 1% Lidocaine subcutaneous anesthesia. A Slender Glidesheath sheath was inserted into the right radial artery. Coronary angiography was performed using coronary diagnostic catheters. The right coronary system was accessed and visualized with a Diagnostic [place] 4.0 6fr catheter. The left coronary system was accessed and visualized with a Diagnostic AR1 Mod 6fr catheter. Left ventricular/Aortic Valve gradient assessed via catheter pullback. Closure device was deployed with a Fr Vasc-Band XLng 29cm. The patient tolerated the procedure well and there were no complications associated with the procedure. Intraoperative Conscious Sedation Sedation start time: 10:32 Case end Time: 10:[address] [address] CARDIAC CATH REPORT Name: LELE NOLAN Room: [address] IN [facility]#: [id number] Admission: 06/01/18 Attend Phys: Ramiro Vega Discharge: Date of : 40 Report #: [id number] Fentanyl 25 mcg Versed 1 mg Fluoro Time: 5.5 minutes Dose: DAP 57668 cGycm2 1115 mGy Contrast Type and Amount: Omnipaque 80 ml Coronary Angiography The patient's coronary anatomy is right dominant. Diagnostic Cath Left Main Normal. LAD The proximal and mid vessel appeared relatively normal. There is 70% tubular tapering at the apical portion of the vessel. Diagonal 1 Normal. Diagonal 2 Normal. Diagonal 3 Normal. Circumflex The circumflex coronary artery is free of significant disease. There is a widely patent stent in the midportion of the vessel. OM1 Normal. OM2 Normal. OM3 Normal. Right Coronary The right coronary artery has 20% plaquing proximally and 20% plaquing in the midportion. The distal vessel is free of significant disease. R PDA Normal. RPLV 10% narrowing proximally. Left Ventriculography Left Ventriculography was not performed. Hemodynamics The aortic pressure is 127/73 mmHg with a mean of 94 mmHg. The left ventricular pressure is 102/10 mmHg with a mean of mmHg. The left ventricular end diastolic pressure is 20 mmHg. Conclusion 1. Nonocclusive coronary artery disease as outlined above. 2. Minimally elevated left ventricular end-diastolic pressure. 3. No gradient in the pullback [place] [address] CARDIAC CATH REPORT Name: OVIDIOLELE Room: [address] IN [facility]#: [id number] Admission: 06/01/18 Attend Phys: Ramiro Vega Discharge: Date of : 40 Report #: [id number] Recommendations Aggressive Medical Therapy <ELECTRONICALLY SIGNED> By: Nikita Swartz MD, FACC 06/04/181727 27 27Micantony Swartz MD, FACC /INF
[2018-06-05] VITALS (8 sets, daily range): BP systolic 137–164; BP diastolic 58–70
[2018-06-05] MEDS ORDERED: LEVAQUIN 750 M750 MG PO (11:53)
[2018-06-05] MEDS ORDERED: PREDNISONE 10 M10 MG PO (11:53)
[2018-06-05] MEDS ORDERED: SENNA-DOCUSATE1 EACH PO (11:53)
== END 2018-06-05 15:40 | disposition home or self-care (01) | DRG 871 ==
LOC: M.ERS 10:50 → M.TBA-ER 12:18 → M.2W 12:18
PROVIDERS: Emergency Medicine; Family Medicine; ADMIT Internal Medicine
PROC: 5A09357 Assistance with Respiratory Ventilation, Less than 24 Consecutive Hours, Continuous Positive Airway Pressure (ICD-10-PCS; 2018-06-01)
PROC: 5A09357 Assistance with Respiratory Ventilation, Less than 24 Consecutive Hours, Continuous Positive Airway Pressure (ICD-10-PCS; 2018-06-02)
PROC: 5A09357 Assistance with Respiratory Ventilation, Less than 24 Consecutive Hours, Continuous Positive Airway Pressure (ICD-10-PCS; 2018-06-03)
PROC: 5A09357 Assistance with Respiratory Ventilation, Less than 24 Consecutive Hours, Continuous Positive Airway Pressure (ICD-10-PCS; principal; 2018-06-04)
PROC: B2111ZZ Fluoroscopy of Multiple Coronary Arteries using Low Osmolar Contrast (ICD-10-PCS; principal; 2018-06-04)
PROC: 4A023N7 Measurement of Cardiac Sampling and Pressure, Left Heart, Percutaneous Approach (ICD-10-PCS; principal; 2018-06-04)
DX: A41.9 Sepsis, unspecified organism (principal); J18.9 Pneumonia, unspecified organism; J96.20 Acute and chronic respiratory failure, unspecified whether with hypoxia or hypercapnia; J44.1 Chronic obstructive pulmonary disease with (acute) exacerbation; J44.0 Chronic obstructive pulmonary disease with (acute) lower respiratory infection; E66.2 Morbid (severe) obesity with alveolar hypoventilation; I25.10 Atherosclerotic heart disease of native coronary artery without angina pectoris; E83.42 Hypomagnesemia; I25.2 Old myocardial infarction; F40.240 Claustrophobia; N18.3 Chronic kidney disease, stage 3 (moderate); Z68.36 Body mass index [BMI] 36.0-36.9, adult; I12.9 Hypertensive chronic kidney disease with stage 1 through stage 4 chronic kidney disease, or unspecified chronic kidney disease; E78.00 Pure hypercholesterolemia, unspecified; M13.852 Other specified arthritis, left hip; E78.5 Hyperlipidemia, unspecified; Z87.11 Personal history of peptic ulcer disease; Z90.49 Acquired absence of other specified parts of digestive tract; Z91.030 Bee allergy status; Z79.2 Long term (current) use of antibiotics; Z79.82 Long term (current) use of aspirin; Z79.899 Other long term (current) drug therapy; Z87.891 Personal history of nicotine dependence; Z95.5 Presence of coronary angioplasty implant and graft; Z85.038 Personal history of other malignant neoplasm of large intestine; Z82.49 Family history of ischemic heart disease and other diseases of the circulatory system; Z82.5 Family history of asthma and other chronic lower respiratory diseases; Z81.8 Family history of other mental and behavioral disorders

== ENCOUNTER 2018-11-21 14:01 | Emergency (ER) | payer OTHER ==
[~2018-11-21] VITALS: Ht 177.8 cm; Wt 124.8 kg
[~2018-11-21 14:01] MED LIST changes: +ASPIR 8181 MG PO; +SENNA-DOCUSATE1 EACH PO
[2018-11-21 14:02] VITALS: BP 129/79
[2018-11-21 14:34] LABS: ABSOLUTE EOSINOPHILS 0.2 thou/uL (0.0-0.7); ABSOLUTE MONOCYTES 0.9 thou/uL (0.0-1.2); ABSOLUTE NEUTROPHILS 4.3 thou/uL (1.6-8.1); BASOPHILS 0.6 %; EOSINOPHILS 2.4 %; HEMATOCRIT 37.2 % (42.0-52.0); HEMOGLOBIN 12.3 gm/dL (14.0-18.0); LYMPHOCYTES 15.8 %; MCH 28.2 pg (26.0-34.0); MCHC 33.1 g/dL (28.0-37.0); MCV 85.2 fL (80.0-100.0); MONOCYTES 14.3 %; MPV 8.4 fl. (7.2-11.1); NUCLEATED RBCS 0 /100WBC; PLATELET COUNT* 181 thou/uL (150-400); POLYS 66.9 %; RBC 4.37 mil/uL (4.50-6.00); RDW-CV 13.2 % (10.5-14.5); WBC 6.5 thou/uL (4.0-11.0)
[2018-11-21] MEDS ORDERED: QUETIAPINE FUM100 MG PO (14:51)
[2018-11-21] MEDS ORDERED: PROTONIX 20 MG20 M1 PO (14:51)
[2018-11-21 14:55] LABS: ANION GAP 9 mmol/L (7-16); BUN 13 mg/dL (7-18); CALCIUM 8.3 mg/dL (8.5-10.1); CHLORIDE 101 mmol/L (98-107); CO2 33 mmol/L (21-32); CREATININE 1.3 mg/dL (0.6-1.3); GLUCOSE 101 mg/dL (70-99); POTASSIUM 3.9 mmol/L (3.5-5.1); SODIUM 143 mmol/L (136-145); TROPONIN-I LEVEL <0.06 ng/mL (<0.06)
[2018-11-21 14:56] LABS: ALBUMIN 3.4 g/dL (3.4-5.0); ALKALINE PHOSPHATASE 68 U/L (46-116); LIPASE 36 U/L (73-393); MAGNESIUM 1.2 mg/dL (1.8-2.4); NT-PRO BRAIN NAT PEPTIDE 696 pg/mL (<300); SGOT 15 U/L (15-37); SGPT 15 U/L (30-65); TOTAL BILIRUBIN 0.4 mg/dL (<0.1-1.0); TOTAL PROTEIN 7.2 g/dL (6.4-8.2)
[2018-11-21] MEDS ORDERED: SINGULAIR 10 MG10 M1 PO (14:58)
[2018-11-21] MEDS ORDERED: ZESTORETIC 20-1 EAC3 PO (14:58)
[2018-11-21] MEDS ORDERED: EFFEXOR 5050 MG/1 T1 PO (14:59)
[2018-11-21] MEDS ORDERED: PLAVIX 75 MG TA75 M1 PO (14:59)
[2018-11-21] MEDS ORDERED: PROAIR HFA8.5 GM PO (15:00)
[2018-11-21] MEDS ORDERED: NEXIUM 24HR20 M1 PO (15:01)
[2018-11-21] MEDS ORDERED: COMBIVENT RESPIM4 GM PO (15:04)
[2018-11-21] MEDS ORDERED: VALIUM5 MG PO (15:05)
[2018-11-21] MEDS ORDERED: [UNRECOGNIZED DRUG - OTHER] PO (15:06)
--- NOTE | 2018-11-21 16:00 | EKG ---
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 Hand: Macy DOUGHERTY : 1940 Requested By: Abdi Bolivar Order Number: [id number] MD: Nikita Swartz Measurements Intervals [place] Rate: 78 P: -20 [place]: 180 QRS: -75 QRSD: 107 T: 34 QT: 417 QTc: 476 Interpretive Statements Sinus rhythm Low voltage throughout Incomplete right bundle-branch block Abnormal R-wave progression, early transition Inferior infarct, old Compared to ECG 06/01/2018 10:56:42 Sinus tachycardia no longer present Myocardial infarct finding still present Electronically Signed On 11-21-2018 16:00:21 CDT by Nikita Swartz [email or web address] <ELECTRONICALLY SIGNED> By: Nikita Swartz MD, FACC 11/21/18 1600 1411 1411 Nikita Swartz MD, FACC /EPI
[2018-11-21 17:31] VITALS: BP 117/72
== END 2018-11-21 17:33 | disposition left against medical advice (07) ==
LOC: M.ERS 14:01 → M.TBA-ER 15:43 → M.ERS 17:33
PROVIDERS: Emergency Medicine Emergency Medical Services
DX: R07.89 Other chest pain (principal); R06.02 Shortness of breath; J44.9 Chronic obstructive pulmonary disease, unspecified; E78.5 Hyperlipidemia, unspecified; M13.852 Other specified arthritis, left hip; Z91.030 Bee allergy status

== ENCOUNTER 2018-12-26 12:28 | Emergency (ER) | payer OTHER ==
[~2018-12-26] VITALS: Ht 177.8 cm; Wt 117.9 kg
[~2018-12-26 12:28] MED LIST changes: +COMBIVENT RESPIM4 GM PO; +EFFEXOR 5050 MG/1 T1 PO; +NEXIUM 24HR20 M1 PO; +PROAIR HFA8.5 GM PO; +QUETIAPINE FUM100 MG PO; +VALIUM5 MG PO; +ZESTORETIC 20-1 EAC3 PO; +[UNRECOGNIZED DRUG - OTHER] PO
[2018-12-26] MEDS ORDERED: TYLENOL PM EX-1 EACH PO (14:52)
[2018-12-26] MEDS ORDERED: GERI-HYDROLAC140 GM TOP (14:53)
[2018-12-26] MEDS ORDERED: TESSALON PERLE100 MG PO (14:54)
[2018-12-26] MEDS ORDERED: COLACE100 MG PO (14:55)
[2018-12-26] MEDS ORDERED: CLOBETASOL EMOL15 GM TOP (14:55)
[2018-12-26] MEDS ORDERED: FOLIC ACID1 MG PO (14:56)
[2018-12-26] MEDS ORDERED: FERROUS GLUCON324 M2 PO (14:56)
[2018-12-26] MEDS ORDERED: NEURONTIN600 MG PO (14:57)
[2018-12-26] MEDS ORDERED: LASIX 20 MG TAB20 MG PO (14:57)
[2018-12-26] MEDS ORDERED: HYDROCHLOROTHIA25 M2 PO (14:57)
[2018-12-26] MEDS ORDERED: IPRATROPIU0.2 MG/1 M INH (14:59)
[2018-12-26] MEDS ORDERED: TYLENOL EXTRA500 MG PO (15:01)
[2018-12-26] MEDS ORDERED: MUCINEX600 MG PO (15:03)
[2018-12-26 15:04] LABS: ABSOLUTE BASOPHILS 0.1 thou/uL (0.0-0.2); ABSOLUTE EOSINOPHILS 0.1 thou/uL (0.0-0.7); ABSOLUTE LYMPHOCYTES 1.2 thou/uL (0.8-5.3); ABSOLUTE NEUTROPHILS 12.6 thou/uL (1.6-8.1); BASOPHILS 0.4 %; EOSINOPHILS 0.5 %; HEMOGLOBIN 13.2 gm/dL (14.0-18.0); LYMPHOCYTES 8.3 %; MCHC 32.9 g/dL (28.0-37.0); MCV 85.3 fL (80.0-100.0); MONOCYTES 6.5 %; MPV 9.6 fl. (7.2-11.1); NUCLEATED RBCS 0 /100WBC; PLATELET COUNT* 241 thou/uL (150-400); POLYS 84.3 %; RBC 4.69 mil/uL (4.50-6.00); RDW-CV 13.8 % (10.5-14.5)
[2018-12-26] MEDS ORDERED: OMEPRAZOLE40 MG PO (15:04)
[2018-12-26] MEDS ORDERED: PROBIOTIC1 EAC1 PO (15:04)
[2018-12-26] MEDS ORDERED: FLOMAX0.4 MG PO (15:05)
[2018-12-26] MEDS ORDERED: SENTRY SENIOR1 EAC1 PO (15:05)
[2018-12-26] MEDS ORDERED: SEROQUEL 25 MG25 M1 PO (15:05)
[2018-12-26 15:12] LABS: CALCIUM 9.3 mg/dL (8.5-10.1); CREATININE 1.1 mg/dL (0.6-1.3)
[2018-12-26 15:14] LABS: POTASSIUM 4.1 mmol/L (3.5-5.1)
[2018-12-26 15:17] LABS: ALBUMIN 3.9 g/dL (3.4-5.0); TOTAL BILIRUBIN 0.8 mg/dL (<0.1-1.0); TOTAL PROTEIN 8.9 g/dL (6.4-8.2)
[2018-12-26 19:05] VITALS: BP 152/69
[2018-12-29] MEDS ORDERED: AUGMENTIN 875-1 EACH PO (10:11)
[2018-12-29] MEDS ORDERED: ZYVOX600 MG PO (10:12)
== END 2018-12-26 19:12 | disposition short-term general hospital (02) ==
LOC: M.ERS 12:28
PROVIDERS: Emergency Medicine Emergency Medical Services
DX: K11.20 Sialoadenitis, unspecified (principal); M13.852 Other specified arthritis, left hip; J44.9 Chronic obstructive pulmonary disease, unspecified; E78.5 Hyperlipidemia, unspecified; Z91.030 Bee allergy status

== ENCOUNTER 2019-01-02 10:39 | Inpatient (IN) | payer OTHER ==
[~2019-01-02] VITALS: Ht 175.3 cm; Wt 119.3 kg
--- NOTE | ~2019-01-02 | PROC ---
[address] [address] PROCEDURE REPORT Name: LELE NOLAN Room: [address] IN M.R.#: [id number] Admission: 01/02/19 Attend Phys: Montana Malcolm Discharge: 01/06/19 Date of : 40 Report #: [id number] THIS REPORT FOR: //name// For GI report, please see the Provation report in Perceptive 7 content. By: 0706Medical Records Staff ED /ISABELL
--- NOTE | ~2019-01-02 | CON ---
[address] [address] CONSULTATION Name: LELE NOLAN Room: [address] IN .R.#: [id number] Admission: 01/02/19 Attend Phys: Montana Malcolm Discharge: Date of : 40 Report #: [id number] THIS REPORT FOR: //name// CC: Nghia Kaplan HISTORY OF PRESENT ILLNESS: This is a pleasant 78-year-old gentleman with past medical history of colon cancer diagnosed in July of last year, status post right hemicolectomy, who is presenting with abdominal pain. The patient reports the pain is located in the right lower quadrant, it is sharp, severe, nonradiating, it is worse on moving and on applying local pressure. The patient reports that the pain has been present intermittently over the last few weeks, but has become significantly worse starting . The patient reports associated sensation of fever and chills and nausea. The patient also reports epigastric abdominal pain and difficulty swallowing. He denies any recent weight loss. The patient reports he did see someone at [facility] for his diagnosis of colon cancer, but was not recommended chemotherapy and he has not received any since. The patient also has not had a colonoscopy since his initial colonoscopy that diagnosed the colon cancer. PAST MEDICAL HISTORY: COPD, hypertension, gastroesophageal reflux disease. PAST SURGICAL HISTORY: The patient had prior history of disk repair in 1992, knee surgery in 1992 and the abdominal surgery for colon cancer last year. SOCIAL HISTORY: The patient has a remote history of smoking. He denies alcohol or recreational drug use. FAMILY HISTORY: There is no family history of colon cancer or Escobar-related neoplasia. REVIEW OF SYSTEMS: Negative except for what is mentioned in the HPI. PHYSICAL EXAMINATION: VITAL SIGNS: Temperature 36.5, pulse rate 68, blood pressure 137/57, respirations 17. GENERAL: The patient is alert, awake, oriented x 3. HEENT: Pupils are equal, round, reactive to light and accommodation. Mucous membranes are moist. There is no congestion. LUNGS: Clear to auscultation bilaterally. CARDIOVASCULAR: Rate and rhythm regular, S1, S2 present. ABDOMEN: Soft. There is no significant distention, guarding or rigidity. EXTREMITIES: Warm and well perfused. There is no edema. SKIN: [place] [address] CONSULTATION Name: OVIDIOELLE Room: [address] IN [facility].#: [id number] Admission: 01/02/19 Attend Phys: Montana Malcolm Discharge: Date of : 40 Report #: [id number] LABORATORY DATA: Hemoglobin 12.3, hematocrit 38.4, platelet count 190, WBC count 9.2. Sodium 140, potassium 3.9, chloride 103, bicarbonate 29, BUN 9, creatinine 1.1. IMAGING: Abdomen and pelvis CT, very mild right lower quadrant abdominal mesenteric fat stranding in the area of previously seen and the right lower quadrant abdominal abscess, likely mild residual inflammation or scarring. Mild diverticulosis of the ascending and sigmoid colon without diverticulitis. ASSESSMENT AND PLAN: This is a 78-year-old male with history of colon cancer, status post right hemicolectomy with subsequent abscess formation who is presenting with right lower quadrant abdominal pain at the site of his previous abscess. CT demonstrates evidence of thickening and inflammation in that area. 1. Right lower quadrant abdominal pain. I would keep the patient on a full liquid diet for today and tomorrow and prep him for colonoscopy on Sunday. The patient has not had a colonoscopy since his previous colonoscopy that initially diagnosed surgery. The patient is also reporting occasional difficulty passing bowel movements. This may be related to surgical anastomotic stenosis. 2. Constipation. Continue current regimen of mag citrate, GoLYTELY and Colace for now. 3. The patient also reports significant intermittent epigastric abdominal pain and pain on swallowing. We will perform an EGD to evaluate this along with colonoscopy on Sunday. Thank you for the consultation. Please do not hesitate to call or contact us with any questions. questions. By: [id number] Meehan MD /marta
[~2019-01-02 10:39] MED LIST changes: +AUGMENTIN 875-1 EACH PO; +CLOBETASOL EMOL15 GM TOP; +FERROUS GLUCON324 M2 PO; +GERI-HYDROLAC140 GM TOP; +HYDROCHLOROTHIA25 M2 PO; +IPRATROPIU0.2 MG/1 M INH; +LASIX 20 MG TAB20 MG PO; +NEURONTIN600 MG PO; +OMEPRAZOLE40 MG PO; -PROAIR HFA8.5 GM PO; +PROBIOTIC1 EAC1 PO; +SENTRY SENIOR1 EAC1 PO; +SEROQUEL 25 MG25 M1 PO; +TESSALON PERLE100 MG PO; +TYLENOL EXTRA500 MG PO; +TYLENOL PM EX-1 EACH PO
[2019-01-02 10:40] VITALS: BP 116/58
[2019-01-02 10:53] LABS: ABSOLUTE BASOPHILS 0.1 thou/uL (0.0-0.2); ABSOLUTE EOSINOPHILS 0.3 thou/uL (0.0-0.7); ABSOLUTE MONOCYTES 0.8 thou/uL (0.0-1.2); ABSOLUTE NEUTROPHILS 7.9 thou/uL (1.6-8.1); BASOPHILS 0.6 %; EOSINOPHILS 2.7 %; HEMATOCRIT 39.1 % (42.0-52.0); HEMOGLOBIN 12.6 gm/dL (14.0-18.0); LYMPHOCYTES 17.8 %; MCH 27.3 pg (26.0-34.0); MCHC 32.2 g/dL (28.0-37.0); MCV 84.8 fL (80.0-100.0); MONOCYTES 7.4 %; MPV 8.8 fl. (7.2-11.1); NUCLEATED RBCS 0 /100WBC; PLATELET COUNT* 240 thou/uL (150-400); POLYS 71.5 %; RBC 4.61 mil/uL (4.50-6.00); RDW-CV 13.8 % (10.5-14.5); WBC 11.1 thou/uL (4.0-11.0)
[2019-01-02 11:06] LABS: ANION GAP 8 mmol/L (7-16); BUN 15 mg/dL (7-18); CALCIUM 8.1 mg/dL (8.5-10.1); CHLORIDE 103 mmol/L (98-107); CO2 30 mmol/L (21-32); CREATININE 1.3 mg/dL (0.6-1.3); GLUCOSE 95 mg/dL (70-99); POTASSIUM 4.1 mmol/L (3.5-5.1); SODIUM 141 mmol/L (136-145)
[2019-01-02 11:10] LABS: ALBUMIN 3.1 g/dL (3.4-5.0); ALKALINE PHOSPHATASE 67 U/L (46-116); LIPASE 52 U/L (73-393); SGOT 12 U/L (15-37); SGPT 17 U/L (30-65); TOTAL BILIRUBIN 0.5 mg/dL (<0.1-1.0); TOTAL PROTEIN 7.1 g/dL (6.4-8.2); TROPONIN-I LEVEL <0.06 ng/mL (<0.06)
[2019-01-02 12:49] LABS: URINE BILIRUBIN NEGATIVE (Negative); URINE BLOOD NEGATIVE (Negative); URINE CLARITY CLEAR; URINE COLOR YELLOW; URINE GLUCOSE-RANDOM NEGATIVE (Negative); URINE KETONES NEGATIVE (Negative); URINE LEUKOCYTES-REFLEX NEGATIVE (Negative); URINE NITRITE-REFLEX NEGATIVE (Negative); URINE PROTEIN NEGATIVE (Negative); URINE SPECIFIC GRAVITY <= 1.005 (1.005-1.030); URINE UROBILINOGEN 0.2 E.U./dl (0.2-1.0)
[2019-01-02 15:36] VITALS: BP 140/77
--- NOTE | 2019-01-02 15:36 | EKG ---
[place] [address] ELECTROCARDIOGRAM REPORT Name: LELE NOLAN Room: [place] [address] ADM IN .R.#: [id number] Admission: 01/02/19 Attend Phys: Montana Malcolm Discharge: Date of : 40 Report #: [id number] THIS REPORT FOR: //name// [facility] ED Test Date: 2019-01-02 Test Time: 10:49:01 Pat Name: LELE NOLAN Department: Room: [facility] Gender: Green End Worker: Macy DOUGHERTY : 1940 Requested By: Abdi Bolivar Order Number: [id number] MD: Joe Laura Measurements Intervals [place] Rate: 67 P: 33 [place]: 170 QRS: -55 QRSD: 111 T: 48 QT: 459 QTc: 485 Interpretive Statements Sinus rhythm Abnormal R-wave progression, early transition Inferior infarct, old Compared to ECG 11/21/2018 14:11:16 Myocardial infarct finding still present Electronically Signed On 01-02-2019 15:36:20 CDT by Joe Laura [email or web address] <ELECTRONICALLY SIGNED> By: Joe Laura MD, [facility] 01/02/19 1536 1049 1049 Joe Laura MD, [facility] /EPI
[2019-01-02 15:45] VITALS: BP 189/135
--- NOTE | 2019-01-02 15:45 | NUR ---
RECEIVED REPORT FROM HUYEN AND ASSUMED CARE OF PT @ 9361.PT IS A/O X4,VSS,TRACING SR ON THE MONITOR.PT REMAINS ON 4L O2 NC.IV PATENT AND SALINE LOCKED.PT IS CALM AND COOPERATIVE WITH C/O PAIN-MANAGED WELL WITH MEDICATIONS.PT LEFT RESTING IN BED WITH CALL LIGHT AND FALL PRECAUTIONS IN [place].WILL CONTINUE TO MONITOR.
--- NOTE | 2019-01-02 18:09 | NUR ---
VSS.CARDIAC MONITORING IN PLACE WITH NO CHANGES.PT REMAINS ON 4L O2 NC.IV PATENT WITH IVF INFUSING PER ORDERS.PT REMAINS NPO STATUS.PT INFORMED OF PLAN OF CARE AND COMMUNICATES UNDERSTANDING.HOURLY ROUNDING COMPLETED FOR PT SAFETY.CALL LIGHT AND FALL PRECAUTIONS IN PLACE.WILL CONTINUE TO MONITOR FOR DURATION OF SHIFT.
[2019-01-02 19:45] VITALS: BP 146/71
[2019-01-03] VITALS: BP 111/63
[2019-01-03 04:04] VITALS: BP 124/67
--- NOTE | 2019-01-03 04:07 | NUR ---
ASSUMED CARE OF PT AT 1900. PT IS ALERT AND ORIENTED. VSS. PERRLA. PT REPORTS SOME PAIN IN ABDOMAN. PT IS BRUNILDASU MARGARITO ON THE TELEMETRY. PT IS RESTING COMFORTABLY IN BED. RESPIRATIONS ARE EVEN AND NONLABORED. WILL CONTINUE TO MONITOR PT.
[2019-01-03 08:00] VITALS: BP 135/57
[2019-01-03 12:47] VITALS: BP 123/64
[2019-01-03 13:02] LABS: NUCLEATED RBCS 0 /100WBC
[2019-01-03 13:11] LABS: CALCIUM 8.3 mg/dL (8.5-10.1); CREATININE 1.1 mg/dL (0.6-1.3); POTASSIUM 3.9 mmol/L (3.5-5.1)
[2019-01-03 13:17] LABS: ABSOLUTE EOSINOPHILS 0.3 thou/uL (0.0-0.7); ABSOLUTE LYMPHOCYTES 1.3 thou/uL (0.8-5.3); ABSOLUTE MONOCYTES 0.7 thou/uL (0.0-1.2); ABSOLUTE NEUTROPHILS 6.9 thou/uL (1.6-8.1); BASOPHILS 0.4 %; EOSINOPHILS 2.7 %; HEMATOCRIT 38.4 % (42.0-52.0); HEMOGLOBIN 12.3 gm/dL (14.0-18.0); MCH 28.1 pg (26.0-34.0); MCHC 32.2 g/dL (28.0-37.0); MCV 87.3 fL (80.0-100.0); MONOCYTES 7.8 %; MPV 8.9 fl. (7.2-11.1); PLATELET COUNT* 190 thou/uL (150-400); POLYS 75.1 %; RBC 4.39 mil/uL (4.50-6.00); RDW-CV 13.8 % (10.5-14.5); WBC 9.2 thou/uL (4.0-11.0)
--- NOTE | 2019-01-03 15:20 | NUR ---
SW met with pt to complete initial assessment, introduce self, and SW role. Pt alert, oriented, talkative. Pt lives at home with his significant other of many years, Sheila. Pt said that they were for a while and they really "get along well" now and she is very supportive. Pt has hx with [facility]. Pt has oxygen and trilogy through [employer]. Pt has RW, 2 canes, wc, scooter, and says that he has all DME he would ever need. Pt was sad to miss his "granddaughter's" wedding tomorrow. SW to continue to follow to assist with safe dc planning.
--- NOTE | 2019-01-03 15:39 | NUR ---
PATIENT IS ALERT AND ORIENTED X 4. SEEN BY DR GAO THIS AM. STARTED CLR LIQ DIET. PATIENT IS TRYING TO HAVE BOWEL MOVEMENT. MAG CITRATE ORDERED AND PATIENT HAS FINISHED. CONT. IV ABX WITHOUT ADVERSE REACTION. DENIES ANY FURTHER COMPLAINTS. NO SIGN OF DISTRESS AT THIS TIME.
[2019-01-03 16:07] LABS: ESR (SEDRATE) 48 mm/hr (0-20)
[2019-01-03 20:00] VITALS: BP 138/70
[2019-01-04] VITALS: BP 134/62
--- NOTE | 2019-01-04 01:57 | NUR ---
PT ALERT ORIENTED. UP IN ROOM WITH STD BY. TELEMETRY SHOWS SR. ON CLEAR LIQUID. TOLERATING WELL. NS AT 100MLS/HR.
[2019-01-04 04:00] VITALS: BP 143/56
[2019-01-04 08:00] VITALS: BP 129/56
[2019-01-04 11:36] VITALS: BP 137/57
[2019-01-04 15:44] VITALS: BP 128/44
--- NOTE | 2019-01-04 16:34 | NUR ---
ASSUMED PT CARE AT 0800. AOX4. O2 SAT 90'S 3L NC. TRACING SR ON TELE PT COMPLAINS OF TOOTH PAIN. PT FEEL SAD ABOUT NOT GOING TO GRAND DAUGHTER [place]. PT HAS DISTENDED ABDOMEN. PT HAD ABDOBEN XRAY/ KUB. PT RECEIVING LAXATIVE. PT HAD A BM TODAY. PT ON FULL LIQUID DIET. VSS, AM ASSESSMENT CHARTED. MEDS GIVEN PER MAR. HOURLY ROUNDING. WILL CONTINUE TO MONITOR
--- NOTE | 2019-01-04 18:17 | NUR ---
PT HAD BM TODAY. PT RECEIVING LAXATIVES. PT DENIES ANY PAIN ALL DAY. PT O2 SAT AT 90'S 3L NC. STILL SR ON TELE. ALL NEEDS MET AT THIS TIME. WILL CONTINUE TO MONITOR.
[2019-01-04 20:00] VITALS: BP 134/76
[2019-01-05] VITALS: BP 98/53
[2019-01-05 04:00] VITALS: BP 111/47
[2019-01-05 04:43] LABS: HEMATOCRIT 32.8 % (42.0-52.0); HEMOGLOBIN 10.9 gm/dL (14.0-18.0); MCH 28.1 pg (26.0-34.0); MCHC 33.1 g/dL (28.0-37.0); MCV 85.1 fL (80.0-100.0); MPV 8.9 fl. (7.2-11.1); RBC 3.86 mil/uL (4.50-6.00); RDW-CV 13.9 % (10.5-14.5); WBC 7.4 thou/uL (4.0-11.0)
[2019-01-05 04:59] LABS: CALCIUM 8.2 mg/dL (8.5-10.1); CREATININE 1.1 mg/dL (0.6-1.3); MAGNESIUM 1.6 mg/dL (1.8-2.4); POTASSIUM 3.6 mmol/L (3.5-5.1)
[2019-01-05 08:00] VITALS: BP 100/51
[2019-01-05 12:00] VITALS: BP 120/60
--- NOTE | 2019-01-05 19:11 | NUR ---
RECEIVED REPORT AND ASSUMED CARE AT 0700. VSS. CARDIAC MONITORING IN PLACE. PT DENIES COMPLAINTS OF PAIN. ASSESSMENT COMPLETED CHARTED. PT TO HAVE EGD AND COLONOSCOPY 01/06. DISCUSSED PLAN OF CARE WITH PT, VERBALIZED UNDERSTANDING. PT UP AD CLAY IN ROOM, ON 4L NC. PT CHANGED TO M/S STATUS. HOURLY ROUNDING COMPLETED AND ALL NEEDS MET.
[2019-01-05 20:33] VITALS: BP 137/68
[2019-01-06] VITALS: BP 123/67; BP 97/67
--- NOTE | 2019-01-06 05:47 | NUR ---
PT IS ABLE TO COMMUNICATE HIS NEEDS TO STAFF EFFECTIVELY. HE HAS DENIED THE NEED FOR PAIN MEDICATION UP TO THIS TIME. MED/SURG STATUS. HE HAS BEEN NPO SINCE MIDNIGHT FOR A LIKELY EGD AND COLONOSCOPY LATER TODAY.
[2019-01-06 07:30] VITALS: BP 119/59
[2019-01-06 10:25] VITALS: BP 119/59
[2019-01-06 15:56] VITALS: BP 119/59
--- NOTE | 2019-01-07 15:06 | PATH ---
[address] [address] PATHOLOGY RPT PROCEDURE Name: OBINNA DAVIS Room: [address] IN M.R.#: [id number] Admission: 01/02/19 Date of : 40 Discharge: 01/06/19 Report #: [id number] Path Case #: [id number] [facility] Accession Number: [id number] . 01 Material submitted: . stomach - GASTRIC BIOPSY FOR H PYLROIC . 01 Clinical history: . None provided . 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 (MUNA:elaina; 01/07/2019) . . Special stain: H. pylori immuno. QMS/01/07/2019 . 02 Electronically signed: . aRh Mercado MD, Pathologist NPI- [id number] . 01 Gross description: . Received in formalin labeled "Obinna Davis, gastric biopsy for H. pylori," are 5 segments of ramos soft tissue measuring 1.4 x 0.9 x 0.3 cm in aggregate dimensions and ranging from 0.2 to 0.7 cm in maximum dimension. The specimen is submitted entirely in cassette A1. (TSD; 01/06/2019) TOB/TOB . 02 Pathologist provided ICD-10: K29.50 . 02 CPT . 807421, X40873 Specimen Comment: A courtesy copy of this report has been sent to Specimen Comment: [phone], , . Specimen Comment: Report sent to ,DR GAO / DR ROTHMAN Specimen Comment: A duplicate report has been generated due to demographic updates. Performed at: [address] [id number] MD Efrain Del Rosario MD Phone: [phone] Performed at: 02 [place] [address] PATHOLOGY RPT PROCEDURE Name: OBINNA DAVIS Room: [address] IN ..#: [id number] Admission: 01/02/19 Date of : 40 Discharge: 01/06/19 Report #: [id number] Path Case #: [id number] [facility] [place], [place] [id number] MD Rah Mercado MD Phone: [phone]
== END 2019-01-06 17:11 | disposition home or self-care (01) | DRG 394 ==
LOC: M.ERS 10:39 → M.2W 13:35 → M.TBA-ER 13:35 → M.2W 16:07
PROVIDERS: Emergency Medicine Emergency Medical Services; Internal Medicine; ADMIT Internal Medicine
PROC: 0DB68ZX Excision of Stomach, Via Natural or Artificial Opening Endoscopic, Diagnostic (ICD-10-PCS; principal; 2019-01-06)
PROC: 0DJD8ZZ Inspection of Lower Intestinal Tract, Via Natural or Artificial Opening Endoscopic (ICD-10-PCS; principal; 2019-01-06)
DX: K55.039 Acute (reversible) ischemia of large intestine, extent unspecified (principal); K57.92 Diverticulitis of intestine, part unspecified, without perforation or abscess without bleeding; E44.1 Mild protein-calorie malnutrition; M19.90 Unspecified osteoarthritis, unspecified site; E78.5 Hyperlipidemia, unspecified; I10 Essential (primary) hypertension; I25.10 Atherosclerotic heart disease of native coronary artery without angina pectoris; K21.9 Gastro-esophageal reflux disease without esophagitis; K11.20 Sialoadenitis, unspecified; K59.00 Constipation, unspecified; J44.9 Chronic obstructive pulmonary disease, unspecified; I73.9 Peripheral vascular disease, unspecified; I25.2 Old myocardial infarction; Z95.5 Presence of coronary angioplasty implant and graft; Z86.14 Personal history of Methicillin resistant Staphylococcus aureus infection; Z79.82 Long term (current) use of aspirin; Z91.030 Bee allergy status; Z79.899 Other long term (current) drug therapy; Z85.038 Personal history of other malignant neoplasm of large intestine; Z82.49 Family history of ischemic heart disease and other diseases of the circulatory system; Z83.6 Family history of other diseases of the respiratory system; Z87.891 Personal history of nicotine dependence

== ENCOUNTER → 2019-03-26 | Day surgery (SDC) | payer OTHER, SELFPAY ==
--- NOTE | ~2019-03-26 | PROC ---
[address] [place] [address] PROCEDURE REPORT Name: LELE NOLAN Room: [facility].#: [id number] Admission: 03/26/19 Attend Phys: Brent Meehan MD Discharge: Date of : 40 Report #: [id number] THIS REPORT FOR: //name// For GI report, please see the Provation report in Perceptive 7 content. By: 0659Medical Records Staff ROSENDA /ISABELL
[2019-03-26 10:30] LABS: HEMATOCRIT 39.8 % (42.0-52.0); HEMOGLOBIN 13.2 gm/dL (14.0-18.0); MCV 87.9 fL (80.0-100.0); MPV 8.7 fl. (7.2-11.1); RBC 4.53 mil/uL (4.50-6.00); RDW-CV 13.8 % (10.5-14.5); WBC 7.3 thou/uL (4.0-11.0)
[2019-03-26 10:38] LABS: CALCIUM 8.9 mg/dL (8.5-10.1); CREATININE 1.1 mg/dL (0.6-1.3); POTASSIUM 4.3 mmol/L (3.5-5.1)
[2019-03-26 10:42] LABS: ALBUMIN 3.7 g/dL (3.4-5.0); TOTAL BILIRUBIN 0.4 mg/dL (<0.1-1.0); TOTAL PROTEIN 7.8 g/dL (6.4-8.2)
--- NOTE | 2019-04-02 22:06 | PATH ---
[address] [address] PATHOLOGY RPT PROCEDURE Name: OBINNA DAVIS Room: [facility].#: [id number] Admission: 03/26/19 Date of : 40 Discharge: Report #: [id number] Path Case #: [id number] LCA Accession Number: [id number] . 01 Material submitted: . colon - DESCENDING ULCERATED COLON. Modifiers: descending . 01 Clinical history: . Hx colon cancer, chronic constipation, Rt lower quadrant pain . 02 Diagnosis: "Descending ulcerated colon", biopsy: - COLONIC MUCOSA WITH SUBMUCOSAL INVASIVE ADENOCARCINOMA, MODERATELY-DIFFERENTIATED. - Overlying colonic mucosa with ulceration and reactive/regenerative changes. . (CLW:karen; 04/02/2019) QLM/04/02/2019 . 02 Comment: A properly-controlled immunohistochemical stain is performed. . AE1/AE3 (block A1): Highlights the mucosa and invasive carcinoma. . The case is co-reviewed with Dr. Hilary Stovall. The case is discussed with Sharon Miller RN, nurse with Dr. Meehan on 04/02/2019 at 4:00 p.m. . Clinical and endoscopic correlation is recommended. . (CLW:mml; 04/02/2019) . 02 Electronically signed: . Miriam Malagon MD, Pathologist NPI- [id number] . 01 Gross description: . Received in formalin labeled "Obinna Davis, descending ulcerated colon," are four segments of ramos-brown soft tissue measuring 0.5 x 0.5 x 0.2 cm in aggregate dimensions and measuring 0.3 cm each in maximum dimension. The specimen is submitted entirely in cassette A1. (DAC; 03/27/2019) XDC/XDC . 02 Pathologist provided ICD-10: C18.6, K63.3 . 02 [place] [address] PATHOLOGY RPT PROCEDURE Name: OBINNA DAVIS Room: [facility]#: [id number] Admission: 03/26/19 Date of : 40 Discharge: Report #: [id number] Path Case #: [id number] Specimen Comment: A courtesy copy of this report has been sent to Specimen Comment: [phone], , . Specimen Comment: Report sent to , and Performed at: 01 [facility] [address] [id number] MD Efrain Del Rosario MD Phone: [phone] Performed at: 02 [facility] [address] [id number] MD Skinny Guerrier MD Phone: [phone]
== END | disposition home or self-care (01) ==
LOC: M.SUR 03-20 09:07
PROVIDERS: Internal Medicine Gastroenterology
DX: C18.6 Malignant neoplasm of descending colon (principal); K63.3 Ulcer of intestine; K57.30 Diverticulosis of large intestine without perforation or abscess without bleeding; K64.8 Other hemorrhoids; I73.9 Peripheral vascular disease, unspecified; J43.9 Emphysema, unspecified; I25.10 Atherosclerotic heart disease of native coronary artery without angina pectoris; Z85.038 Personal history of other malignant neoplasm of large intestine; Z87.19 Personal history of other diseases of the digestive system; Z98.0 Intestinal bypass and anastomosis status; Z98.890 Other specified postprocedural states; Z79.899 Other long term (current) drug therapy

== ENCOUNTER → 2019-04-03 | Outpatient (CLI) | payer OTHER, SELFPAY | LOC: M.RAD 15:53 | DX: K59.00 Constipation, unspecified (principal); M16.0 Bilateral primary osteoarthritis of hip ==

== ENCOUNTER 2019-07-13 15:27 | Inpatient (IN) | payer OTHER ==
[~2019-07-13] VITALS: Ht 180.3 cm; Wt 117.5 kg
[2019-07-13 15:34] VITALS: BP 136/76
[2019-07-13 15:53] LABS: ABSOLUTE BASOPHILS 0.1 thou/uL (0.0-0.2); ABSOLUTE EOSINOPHILS 0.1 thou/uL (0.0-0.7); ABSOLUTE LYMPHOCYTES 1.4 thou/uL (0.8-5.3); ABSOLUTE MONOCYTES 0.9 thou/uL (0.0-1.2); ABSOLUTE NEUTROPHILS 11.5 thou/uL (1.6-8.1); BASOPHILS 0.8 %; EOSINOPHILS 0.8 %; HEMATOCRIT 44.8 % (42.0-52.0); HEMOGLOBIN 14.7 gm/dL (14.0-18.0); LYMPHOCYTES 9.7 %; MCH 28.2 pg (26.0-34.0); MCHC 32.7 g/dL (28.0-37.0); MCV 86.2 fL (80.0-100.0); MONOCYTES 6.4 %; MPV 8.9 fl. (7.2-11.1); NUCLEATED RBCS 0 /100WBC; PLATELET COUNT* 283 thou/uL (150-400); POLYS 82.3 %; RDW-CV 13.2 % (10.5-14.5)
[2019-07-13 16:01] LABS: CALCIUM 9.3 mg/dL (8.5-10.1); CREATININE 1.3 mg/dL (0.6-1.3); POTASSIUM 4.7 mmol/L (3.5-5.1)
[2019-07-13 16:05] LABS: ALBUMIN 4.4 g/dL (3.4-5.0); TOTAL BILIRUBIN 0.5 mg/dL (<0.1-1.0); TOTAL PROTEIN 8.7 g/dL (6.4-8.2)
[2019-07-13 17:05] LABS: APTT 28.7 Seconds (25.0-31.3); INR 1.1; PROTIME 10.8 Seconds (9.20-11.50)
[2019-07-13 19:50] VITALS: BP 140/71
[2019-07-13 19:51] VITALS: BP 138/83
[2019-07-13 20:00] VITALS: BP 110/88
[2019-07-13] MEDS ORDERED: VENLAFAXINE HC150 MG PO (20:53)
[2019-07-13] MEDS ORDERED: VITAMIN B122500 MC1 PO (20:54)
[2019-07-13] MEDS ORDERED: OMEPRAZOLE40 MG PO (20:55)
[2019-07-13] MEDS ORDERED: SENTRY SENIOR1 EAC1 PO (20:55)
[2019-07-13] MEDS ORDERED: ASA81BEC PO (20:56)
[2019-07-13] MEDS ORDERED: DUREZOL5 ML EA. EYE (20:57)
[2019-07-14] VITALS: BP 153/90
[2019-07-14 02:37] LABS: URINE BILIRUBIN NEGATIVE (Negative); URINE BLOOD NEGATIVE (Negative); URINE CLARITY CLEAR; URINE COLOR YELLOW; URINE GLUCOSE-RANDOM NEGATIVE (Negative); URINE KETONES NEGATIVE (Negative); URINE LEUKOCYTES-REFLEX NEGATIVE (Negative); URINE NITRITE-REFLEX NEGATIVE (Negative); URINE PROTEIN NEGATIVE (Negative); URINE SPECIFIC GRAVITY 1.015 (1.005-1.030); URINE UROBILINOGEN 0.2 E.U./dl (0.2-1.0)
[2019-07-14 04:00] VITALS: BP 140/75
[2019-07-14 04:54] LABS: ABSOLUTE LYMPHOCYTES 0.9 thou/uL (0.8-5.3); ABSOLUTE MONOCYTES 1.1 thou/uL (0.0-1.2); ABSOLUTE NEUTROPHILS 10.2 thou/uL (1.6-8.1); BASOPHILS 0.1 %; EOSINOPHILS 0.1 %; HEMATOCRIT 41.4 % (42.0-52.0); HEMOGLOBIN 13.5 gm/dL (14.0-18.0); LYMPHOCYTES 7.5 %; MCHC 32.7 g/dL (28.0-37.0); MCV 85.7 fL (80.0-100.0); MONOCYTES 8.8 %; MPV 9.2 fl. (7.2-11.1); NUCLEATED RBCS 0 /100WBC; PLATELET COUNT* 275 thou/uL (150-400); POLYS 83.5 %; RBC 4.83 mil/uL (4.50-6.00); RDW-CV 13.2 % (10.5-14.5); WBC 12.2 thou/uL (4.0-11.0)
[2019-07-14 05:23] LABS: CALCIUM 8.5 mg/dL (8.5-10.1); CREATININE 1.2 mg/dL (0.6-1.3); MAGNESIUM 1.8 mg/dL (1.8-2.4); POTASSIUM 4.6 mmol/L (3.5-5.1)
[2019-07-14 08:00] VITALS: BP 132/78
--- NOTE | 2019-07-14 10:49 | EKG ---
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 Attorney: : 1940 Requested By: Jennifer Suh Order Number: [id number] MD: Joe Laura Measurements Intervals [place] Rate: 79 P: 6 [place]: 178 QRS: -62 QRSD: 90 T: 72 QT: 380 QTc: 436 Interpretive Statements Sinus rhythm Abnormal R-wave progression, late transition Inferior infarct, old Compared to ECG 01/02/2019 10:49:01 No significant changes Electronically Signed On 07-14-2019 10:49:11 FAMILY PHYSICIAN by Joe Laura [email or web address] <ELECTRONICALLY SIGNED> By: Joe Laura MD, FACC 07/14/19 1049 1543 1543 Joe Laura MD, [facility] /EPI
[2019-07-14 11:33] VITALS: BP 121/72
[2019-07-14 16:06] VITALS: BP 129/77
[2019-07-14 19:50] VITALS: BP 140/71
[2019-07-15] VITALS: BP 149/79
[2019-07-15 04:00] VITALS: BP 118/62
[2019-07-15 05:13] LABS: HEMATOCRIT 36.1 % (42.0-52.0); HEMOGLOBIN 12.1 gm/dL (14.0-18.0); MCH 28.6 pg (26.0-34.0); MCHC 33.4 g/dL (28.0-37.0); MCV 85.4 fL (80.0-100.0); MPV 8.5 fl. (7.2-11.1); RBC 4.22 mil/uL (4.50-6.00); RDW-CV 13.5 % (10.5-14.5); WBC 5.7 thou/uL (4.0-11.0)
[2019-07-15 05:39] LABS: CALCIUM 8.3 mg/dL (8.5-10.1); CREATININE 1.2 mg/dL (0.6-1.3); MAGNESIUM 1.7 mg/dL (1.8-2.4); PHOSPHORUS* 3.1 mg/dL (2.5-4.9); POTASSIUM 3.8 mmol/L (3.5-5.1)
[2019-07-15 08:15] VITALS: BP 131/72
[2019-07-15 11:29] VITALS: BP 138/72
[2019-07-15 16:00] VITALS: BP 148/76
--- NOTE | 2019-07-15 16:29 | EKG ---
[place] [address] ELECTROCARDIOGRAM REPORT Name: LELE NOLAN Room: [address] ADM IN M.R.#: [id number] Admission: 07/13/19 Attend Phys: Ramiro Vega Discharge: Date of : 40 Report #: [id number] THIS REPORT FOR: //name// [facility] Test Date: 2019-07-14 Test Time: 21:07:08 Pat Name: LELE NOLAN Department: Room: [address] Gender: M Brim Blocker: J[place] : 1940 Requested By: Zachary Coy Order Number: [id number] Chetan MD: Arjun Trinidad Measurements Intervals [place] Rate: 89 P: -13 [place]: 171 QRS: -65 QRSD: 87 T: 76 QT: 363 QTc: 442 Interpretive Statements Sinus rhythm Inferior infarct, old possible anterior scar Compared to ECG 07/13/2019 15:43:58 R wave progression has worsened Electronically Signed On 07-15-2019 16:29:07 CEMENTER MACHINE by Arjun Trinidad [email or web address] <ELECTRONICALLY SIGNED> By: Arjun Trinidad MD, [facility] 07/15/19 4949 06 06 Arjun Trinidad MD, [facility] /EPI
[2019-07-15 20:30] VITALS: BP 131/65
[2019-07-16] VITALS: BP 126/64
[2019-07-16 04:00] VITALS: BP 138/69
[2019-07-16 04:36] LABS: ABSOLUTE EOSINOPHILS 0.1 thou/uL (0.0-0.7); ABSOLUTE LYMPHOCYTES 1.7 thou/uL (0.8-5.3); ABSOLUTE NEUTROPHILS 2.7 thou/uL (1.6-8.1); BASOPHILS 0.4 %; EOSINOPHILS 2.5 %; HEMATOCRIT 35.6 % (42.0-52.0); LYMPHOCYTES 30.9 %; MCH 28.6 pg (26.0-34.0); MCHC 33.6 g/dL (28.0-37.0); MCV 85.2 fL (80.0-100.0); MONOCYTES 18.1 %; MPV 8.5 fl. (7.2-11.1); NUCLEATED RBCS 0 /100WBC; PLATELET COUNT* 246 thou/uL (150-400); POLYS 48.1 %; RBC 4.18 mil/uL (4.50-6.00); RDW-CV 13.3 % (10.5-14.5); WBC 5.6 thou/uL (4.0-11.0)
[2019-07-16 04:47] LABS: CALCIUM 8.5 mg/dL (8.5-10.1); CREATININE 1.1 mg/dL (0.6-1.3); POTASSIUM 3.7 mmol/L (3.5-5.1)
[2019-07-16 08:00] VITALS: BP 137/63
--- NOTE | 2019-07-16 14:18 | EKG ---
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: : 1940 Requested By: Zachary Coy Order Number: [id number] Chetan MD: Arjun Trinidad Measurements Intervals [place] Rate: 70 P: -27 [place]: 169 QRS: -56 QRSD: 102 T: 61 QT: 413 QTc: 446 Interpretive Statements Sinus rhythm Abnormal R-wave progression, late transition Inferior infarct, old Compared to ECG 07/14/2019 21:07:08 No significant changes Electronically Signed On 07-16-2019 14:18:33 MOLDED RUBBER GOODS CUTTER by Arjun Trinidad [email or web address] <ELECTRONICALLY SIGNED> By: Arjun Trinidad MD, FAC 07/16/19 1418 1236 1236 Arjun Trinidad MD, [facility] /EPI
[2019-07-16 19:45] VITALS: BP 155/86
[2019-07-17 05:15] LABS: HEMATOCRIT 38.7 % (42.0-52.0); HEMOGLOBIN 12.9 gm/dL (14.0-18.0); MCH 28.6 pg (26.0-34.0); MCHC 33.3 g/dL (28.0-37.0); MCV 85.8 fL (80.0-100.0); MPV 8.8 fl. (7.2-11.1); NUCLEATED RBCS 0 /100WBC; PLATELET COUNT* 286 thou/uL (150-400); RBC 4.51 mil/uL (4.50-6.00); RDW-CV 13.2 % (10.5-14.5); WBC 6.9 thou/uL (4.0-11.0)
[2019-07-17 05:26] LABS: CALCIUM 8.5 mg/dL (8.5-10.1); CREATININE 1.3 mg/dL (0.6-1.3)
[2019-07-17 05:50] LABS: ABSOLUTE LYMPHOCYTES 1.2 thou/uL (0.8-5.3); ABSOLUTE MONOCYTES 1.9 thou/uL (0.0-1.2); ABSOLUTE NEUTROPHILS 3.9 thou/uL (1.6-8.1); PLATELET ESTIMATE ADEQUATE
[2019-07-17 05:51] LABS: ANISOCYTOSIS 1+; LARGE PLATELETS RARE; POIKILOCYTOSIS 1+
[2019-07-17 07:55] VITALS: BP 136/72
[2019-07-17 19:42] VITALS: BP 133/71
[2019-07-18 07:15] VITALS: BP 109/64
[2019-07-18 10:41] VITALS: BP 109/64
[2019-07-18 11:28] VITALS: BP 109/64
[2019-07-18 13:45] VITALS: BP 109/64
== END 2019-07-18 13:53 | disposition home or self-care (01) | DRG 388 ==
LOC: M.ERS 15:27 → M.2W 18:49 → M.TBA-ER 18:49 → M.2W 19:56 → M.ORTHSURG 07-16 15:46
PROVIDERS: Internal Medicine; Physician Assistant; Surgery; ADMIT Internal Medicine
PROC: 0D9670Z Drainage of Stomach with Drainage Device, Via Natural or Artificial Opening (ICD-10-PCS; principal; 2019-07-13)
DX: K56.609 Unspecified intestinal obstruction, unspecified as to partial versus complete obstruction (principal); J96.01 Acute respiratory failure with hypoxia; R65.10 Systemic inflammatory response syndrome (SIRS) of non-infectious origin without acute organ dysfunction; M16.12 Unilateral primary osteoarthritis, left hip; M47.9 Spondylosis, unspecified; J44.9 Chronic obstructive pulmonary disease, unspecified; K21.9 Gastro-esophageal reflux disease without esophagitis; E78.5 Hyperlipidemia, unspecified; F41.9 Anxiety disorder, unspecified; G89.29 Other chronic pain; M54.9 Dorsalgia, unspecified; Z87.11 Personal history of peptic ulcer disease; Z86.14 Personal history of Methicillin resistant Staphylococcus aureus infection; I25.2 Old myocardial infarction; Z95.5 Presence of coronary angioplasty implant and graft; Z85.038 Personal history of other malignant neoplasm of large intestine; Z82.49 Family history of ischemic heart disease and other diseases of the circulatory system; Z83.6 Family history of other diseases of the respiratory system; Z87.891 Personal history of nicotine dependence

== ENCOUNTER 2019-08-24 15:41 | Inpatient (IN) | payer OTHER, SELFPAY ==
[~2019-08-24] VITALS: Ht 177.8 cm; Wt 107.5 kg
[~2019-08-24 15:41] MED LIST changes: +ASA81BEC PO; +DUREZOL5 ML EA. EYE; +VENLAFAXINE HC150 MG PO; +VITAMIN B122500 MC1 PO
[2019-08-24 15:44] VITALS: BP 123/72
[2019-08-24 16:20] LABS: HEMATOCRIT 39.6 % (42.0-52.0); HEMOGLOBIN 13.3 gm/dL (14.0-18.0); MCH 28.8 pg (26.0-34.0); MCHC 33.7 g/dL (28.0-37.0); MCV 85.3 fL (80.0-100.0); MPV 9.6 fl. (7.2-11.1); NUCLEATED RBCS 0 /100WBC; PLATELET COUNT* 268 thou/uL (150-400); RBC 4.64 mil/uL (4.50-6.00); RDW-CV 14.4 % (10.5-14.5); WBC 14.2 thou/uL (4.0-11.0)
[2019-08-24 16:24] LABS: CREATININE 1.8 mg/dL (0.6-1.3); POTASSIUM 4.8 mmol/L (3.5-5.1)
[2019-08-24 16:29] LABS: ALBUMIN 3.6 g/dL (3.4-5.0); TOTAL BILIRUBIN 0.6 mg/dL (<0.1-1.0)
[2019-08-24 16:47] LABS: ABSOLUTE LYMPHOCYTES 1.3 thou/uL (0.8-5.3); ABSOLUTE MONOCYTES 0.6 thou/uL (0.0-1.2); ABSOLUTE NEUTROPHILS 12.4 thou/uL (1.6-8.1); PLATELET ESTIMATE ADEQUATE
[2019-08-24 16:58] LABS: INFLUENZA A ANTIGEN Negative (Negative); INFLUENZA B ANTIGEN Negative (Negative)
[2019-08-24 20:00] VITALS: BP 158/87
[2019-08-24 20:03] VITALS: BP 134/72
[2019-08-24] MEDS ORDERED: MIRALAX119 GM PO (20:33)
[2019-08-25 03:46] LABS: ABSOLUTE LYMPHOCYTES 1.8 thou/uL (0.8-5.3); ABSOLUTE NEUTROPHILS 7.8 thou/uL (1.6-8.1); BASOPHILS 0.3 %; EOSINOPHILS 0.3 %; HEMATOCRIT 34.5 % (42.0-52.0); HEMOGLOBIN 11.6 gm/dL (14.0-18.0); LYMPHOCYTES 16.8 %; MCH 28.9 pg (26.0-34.0); MCHC 33.6 g/dL (28.0-37.0); MCV 85.8 fL (80.0-100.0); MONOCYTES 9.4 %; MPV 9.2 fl. (7.2-11.1); NUCLEATED RBCS 0 /100WBC; PLATELET COUNT* 201 thou/uL (150-400); POLYS 73.2 %; RBC 4.02 mil/uL (4.50-6.00); RDW-CV 13.9 % (10.5-14.5); WBC 10.6 thou/uL (4.0-11.0)
[2019-08-25 04:16] LABS: CALCIUM 7.4 mg/dL (8.5-10.1); CREATININE 1.4 mg/dL (0.6-1.3)
[2019-08-25 04:33] LABS: POTASSIUM 4.2 mmol/L (3.5-5.1)
[2019-08-25] MEDS ORDERED: SUPER THERAVIT1 EACH PO (04:45)
[2019-08-25 09:08] VITALS: BP 119/56
--- NOTE | 2019-08-25 10:14 | EKG ---
[place] [address] ELECTROCARDIOGRAM REPORT Name: LELE NOLAN Room: [address] ADM IN .R.#: [id number] Admission: 08/24/19 Attend Phys: Sarah Gilliam Discharge: Date of : 40 Report #: [id number] THIS REPORT FOR: //name// [facility] ED Test Date: 2019-08-24 Test Time: 15:56:56 Pat Name: LELE NOLAN Department: Room: [facility] Gender: M Applications Engineer: : 1940 Requested By: Justin Villarreal Order Number: [id number] MD: Joe Laura Measurements Intervals [place] Rate: 87 P: 15 NC: 180 QRS: -70 QRSD: 83 T: 81 QT: 368 QTc: 443 Interpretive Statements Sinus rhythm low voltage Inferior infarct, old Compared to ECG 07/16/2019 12:36:34 No significant changes Electronically Signed On 08-25-2019 10:13:37 MULTI TOWNSHIP ASSESSOR by Joe Laura [email or web address] <ELECTRONICALLY SIGNED> By: Joe Laura MD, [facility] 08/25/19 1013 1556 1556 Joe Laura MD, [facility] /EPI
--- NOTE | 2019-08-25 16:20 | EKG ---
[place] [address] ELECTROCARDIOGRAM REPORT Name: LELE NOLAN Room: [address] ADM IN M.R.#: [id number] Admission: 08/24/19 Attend Phys: Sarah Gilliam Discharge: Date of : 40 Report #: [id number] THIS REPORT FOR: //name// [facility] Test Date: 2019-08-25 Test Time: 16:05:26 Pat Name: LELE NOLAN Department: Room: [address] Gender: M [employer] Principal: : 1940 Requested By: Sarah [place] Order Number: [id number] Chetan MD: Joe Laura Measurements Intervals [place] Rate: 74 P: 28 [place]: 166 QRS: -62 QRSD: 88 T: 69 QT: 398 QTc: 442 Interpretive Statements Sinus rhythm Left anterior fascicular block Borderline T wave abnormalities Compared to ECG 08/24/2019 15:56:56 no change Electronically Signed On 08-25-2019 16:19:56 FIREWORKS MAKER by Joe Laura [email or web address] <ELECTRONICALLY SIGNED> By: Joe Laura MD, FACDian 08/25/19 1619 1605 1605 Joe Laura MD, [facility] /EPI
[2019-08-25 17:05] VITALS: BP 120/72
[2019-08-25 20:00] VITALS: BP 125/50
[2019-08-26 04:24] LABS: ABSOLUTE EOSINOPHILS 0.1 thou/uL (0.0-0.7); ABSOLUTE LYMPHOCYTES 2.2 thou/uL (0.8-5.3); ABSOLUTE MONOCYTES 0.7 thou/uL (0.0-1.2); ABSOLUTE NEUTROPHILS 5.1 thou/uL (1.6-8.1); BASOPHILS 0.4 %; EOSINOPHILS 1.7 %; HEMATOCRIT 31.5 % (42.0-52.0); HEMOGLOBIN 10.4 gm/dL (14.0-18.0); LYMPHOCYTES 26.8 %; MCH 28.6 pg (26.0-34.0); MCHC 33.1 g/dL (28.0-37.0); MCV 86.3 fL (80.0-100.0); MONOCYTES 8.1 %; MPV 9.5 fl. (7.2-11.1); NUCLEATED RBCS 0 /100WBC; PLATELET COUNT* 193 thou/uL (150-400); RBC 3.65 mil/uL (4.50-6.00); RDW-CV 13.9 % (10.5-14.5); WBC 8.1 thou/uL (4.0-11.0)
[2019-08-26 04:31] LABS: CREATININE 1.1 mg/dL (0.6-1.3); MAGNESIUM 1.5 mg/dL (1.8-2.4); PHOSPHORUS* 3.3 mg/dL (2.5-4.9); POTASSIUM 4.1 mmol/L (3.5-5.1)
[2019-08-26 08:00] VITALS: BP 148/62
[2019-08-26 10:45] LABS: URINE BILIRUBIN NEGATIVE (Negative); URINE BLOOD NEGATIVE (Negative); URINE CLARITY CLEAR; URINE COLOR YELLOW; URINE GLUCOSE-RANDOM NEGATIVE (Negative); URINE KETONES TRACE (Negative); URINE LEUKOCYTES-REFLEX NEGATIVE (Negative); URINE NITRITE-REFLEX NEGATIVE (Negative); URINE PROTEIN NEGATIVE (Negative)
[2019-08-26 14:36] VITALS: BP 148/62
== END 2019-08-26 15:50 | disposition home or self-care (01) | DRG 388 ==
LOC: M.ERS 15:41 → M.ORTHSURG 17:40 → M.TBA-ER 17:40 → M.ORTHSURG 19:59
PROVIDERS: Family Medicine; Surgery; ADMIT Family Medicine
DX: K56.609 Unspecified intestinal obstruction, unspecified as to partial versus complete obstruction (principal); R65.11 Systemic inflammatory response syndrome (SIRS) of non-infectious origin with acute organ dysfunction; N17.9 Acute kidney failure, unspecified; E87.0 Hyperosmolality and hypernatremia; J44.9 Chronic obstructive pulmonary disease, unspecified; M16.12 Unilateral primary osteoarthritis, left hip; M47.9 Spondylosis, unspecified; F40.240 Claustrophobia; E86.0 Dehydration; E78.5 Hyperlipidemia, unspecified; E83.42 Hypomagnesemia; I25.10 Atherosclerotic heart disease of native coronary artery without angina pectoris; M54.9 Dorsalgia, unspecified; F41.9 Anxiety disorder, unspecified; Q82.8 Other specified congenital malformations of skin; Z79.899 Other long term (current) drug therapy; Z79.51 Long term (current) use of inhaled steroids; Z79.82 Long term (current) use of aspirin; Z91.030 Bee allergy status; Z83.6 Family history of other diseases of the respiratory system; Z82.49 Family history of ischemic heart disease and other diseases of the circulatory system; Z83.79 Family history of other diseases of the digestive system; Z87.891 Personal history of nicotine dependence; Z85.038 Personal history of other malignant neoplasm of large intestine; I25.2 Old myocardial infarction; Z95.5 Presence of coronary angioplasty implant and graft; Z99.81 Dependence on supplemental oxygen

== ENCOUNTER 2019-09-02 16:53 | Inpatient (IN) | payer OTHER, SELFPAY ==
[~2019-09-02] VITALS: Ht 180.3 cm; Wt 109.3 kg
--- NOTE | ~2019-09-02 | PROC ---
[address] [address] PROCEDURE REPORT Name: LELE NOLAN Room: [address] IN M.R.#: [id number] Admission: 09/02/19 Attend Phys: Zachary Coy MD Discharge: 09/06/19 Date of : 40 Report #: [id number] THIS REPORT FOR: //name// cc: Nghia Díaz MD, Matthew W. MD ~ THIS REPORT FOR: //name// For GI report, please see the Provation report in Perceptive 7 content. By: 0638Medical Records Staff ED /ISABELL
[~2019-09-02 16:53] MED LIST changes: +MIRALAX119 GM PO; +SUPER THERAVIT1 EACH PO
[2019-09-02 16:55] VITALS: BP 138/71
[2019-09-02 17:31] LABS: HEMATOCRIT 40.5 % (42.0-52.0); HEMOGLOBIN 13.5 gm/dL (14.0-18.0); MCH 28.7 pg (26.0-34.0); MCHC 33.4 g/dL (28.0-37.0); MCV 85.9 fL (80.0-100.0); MPV 8.9 fl. (7.2-11.1); NUCLEATED RBCS 0 /100WBC; PLATELET COUNT* 312 thou/uL (150-400); RBC 4.72 mil/uL (4.50-6.00); RDW-CV 13.9 % (10.5-14.5); WBC 14.2 thou/uL (4.0-11.0)
[2019-09-02 17:44] LABS: CALCIUM 8.8 mg/dL (8.5-10.1); CREATININE 1.2 mg/dL (0.6-1.3); POTASSIUM 4.9 mmol/L (3.5-5.1)
[2019-09-02 17:48] LABS: ALBUMIN 3.8 g/dL (3.4-5.0); TOTAL BILIRUBIN 0.4 mg/dL (<0.1-1.0); TOTAL PROTEIN 7.9 g/dL (6.4-8.2)
[2019-09-02 18:21] LABS: ABSOLUTE EOSINOPHILS 0.1 thou/uL (0.0-0.7); ABSOLUTE LYMPHOCYTES 0.9 thou/uL (0.8-5.3); ABSOLUTE MONOCYTES 0.3 thou/uL (0.0-1.2); ABSOLUTE NEUTROPHILS 12.9 thou/uL (1.6-8.1); PLATELET ESTIMATE ADEQUATE
[2019-09-03 03:19] VITALS: BP 96/63
[2019-09-03 03:30] VITALS: BP 108/67
[2019-09-03 05:26] LABS: ABSOLUTE BASOPHILS 0.1 thou/uL (0.0-0.2); ABSOLUTE LYMPHOCYTES 1.5 thou/uL (0.8-5.3); ABSOLUTE MONOCYTES 0.8 thou/uL (0.0-1.2); ABSOLUTE NEUTROPHILS 9.1 thou/uL (1.6-8.1); BASOPHILS 0.5 %; EOSINOPHILS 0.3 %; HEMATOCRIT 35.5 % (42.0-52.0); HEMOGLOBIN 11.7 gm/dL (14.0-18.0); LYMPHOCYTES 13.4 %; MCH 28.6 pg (26.0-34.0); MCV 86.6 fL (80.0-100.0); MONOCYTES 6.8 %; MPV 9.2 fl. (7.2-11.1); NUCLEATED RBCS 0 /100WBC; PLATELET COUNT* 265 thou/uL (150-400); WBC 11.5 thou/uL (4.0-11.0)
[2019-09-03 05:52] LABS: CALCIUM 7.9 mg/dL (8.5-10.1); POTASSIUM 4.9 mmol/L (3.5-5.1)
[2019-09-03 08:00] VITALS: BP 105/60
[2019-09-03 16:00] VITALS: BP 145/69
[2019-09-03 21:00] VITALS: BP 135/67
[2019-09-04 03:28] LABS: ABSOLUTE EOSINOPHILS 0.2 thou/uL (0.0-0.7); ABSOLUTE LYMPHOCYTES 1.9 thou/uL (0.8-5.3); ABSOLUTE MONOCYTES 0.6 thou/uL (0.0-1.2); ABSOLUTE NEUTROPHILS 4.2 thou/uL (1.6-8.1); BASOPHILS 0.4 %; EOSINOPHILS 2.6 %; HEMATOCRIT 30.4 % (42.0-52.0); HEMOGLOBIN 10.3 gm/dL (14.0-18.0); LYMPHOCYTES 27.3 %; MCH 29.2 pg (26.0-34.0); MCHC 33.9 g/dL (28.0-37.0); MCV 86.2 fL (80.0-100.0); MONOCYTES 8.5 %; MPV 9.1 fl. (7.2-11.1); NUCLEATED RBCS 0 /100WBC; PLATELET COUNT* 234 thou/uL (150-400); POLYS 61.2 %; RBC 3.53 mil/uL (4.50-6.00); WBC 6.9 thou/uL (4.0-11.0)
[2019-09-04 03:38] LABS: CALCIUM 7.9 mg/dL (8.5-10.1); CREATININE 0.9 mg/dL (0.6-1.3); MAGNESIUM 1.8 mg/dL (1.8-2.4); PHOSPHORUS* 3.1 mg/dL (2.5-4.9)
[2019-09-04 08:00] VITALS: BP 123/72
[2019-09-04 16:30] VITALS: BP 135/76
[2019-09-04 20:00] VITALS: BP 168/82
[2019-09-05 05:04] LABS: HEMATOCRIT 31.9 % (42.0-52.0); HEMOGLOBIN 10.6 gm/dL (14.0-18.0); MCH 28.6 pg (26.0-34.0); MCHC 33.3 g/dL (28.0-37.0); RBC 3.71 mil/uL (4.50-6.00)
[2019-09-05 05:19] LABS: CALCIUM 8.6 mg/dL (8.5-10.1); MAGNESIUM 1.9 mg/dL (1.8-2.4); PHOSPHORUS* 3.6 mg/dL (2.5-4.9); POTASSIUM 3.9 mmol/L (3.5-5.1)
[2019-09-05 07:55] VITALS: BP 136/64
[2019-09-05] MEDS ORDERED: MURO-128 5% OPH15 M1 RT. EYE (12:37)
[2019-09-05 16:00] VITALS: BP 144/76
[2019-09-06] VITALS: BP 131/65
[2019-09-06 08:20] VITALS: BP 130/69
[2019-09-06 11:48] VITALS: BP 130/69
[2019-09-06] MEDS ORDERED: LIPITOR40 MG PO (12:00)
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
--- NOTE | 2019-10-03 14:44 | EKG ---
[place] [address] ELECTROCARDIOGRAM REPORT Name: LELE NOLAN Mahad Room: [address] IN [facility]#: [id number] Admission: 09/02/19 Attend Phys: Zachary Coy, Discharge: 09/06/19 Date of : 40 Date of Service: 09/02/19 1657 Report #: [id number] THIS REPORT FOR: cc: Nghia Díaz MD, Matthew W. MD Blick,Joe Manuel MD [facility] ~ THIS REPORT FOR: //name// 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1940 Requested By: Justin Villarreal Order Number: [id number] MD: Joe Laura Measurements Intervals [place] Rate: 79 P: 59 [place]: 187 QRS: -64 QRSD: 112 T: 68 QT: 388 QTc: 445 Interpretive Statements Sinus rhythm LAD, consider left anterior fascicular block Borderline low voltage, extremity leads Compared to ECG 08/25/2019 16:05:26 T-wave abnormality no longer present Electronically Signed On 09-03-2019 11:34:48 DIVISION HUMAN RESOURCES MANAGER by Joe Laura [email or web address] <ELECTRONICALLY SIGNED> By: Joe Laura MD, [facility] 09/03/19 1134 1657 1657 Joe Laura MD, [facility] /EPI
== END 2019-09-06 12:45 | disposition home health service (06) | DRG 389 ==
LOC: M.ERS 16:53 → M.3W 18:45 → M.TBA-ER 18:45 → M.3W 09-03 04:10
PROVIDERS: Family Medicine; ADMIT Internal Medicine
PROC: 0D7N8ZZ Dilation of Sigmoid Colon, Via Natural or Artificial Opening Endoscopic (ICD-10-PCS; principal; 2019-09-05)
DX: K56.699 Other intestinal obstruction unspecified as to partial versus complete obstruction (principal); J96.10 Chronic respiratory failure, unspecified whether with hypoxia or hypercapnia; J44.9 Chronic obstructive pulmonary disease, unspecified; I10 Essential (primary) hypertension; I25.10 Atherosclerotic heart disease of native coronary artery without angina pectoris; F32.9 Major depressive disorder, single episode, unspecified; E78.5 Hyperlipidemia, unspecified; F41.0 Panic disorder [episodic paroxysmal anxiety]; Z53.29 Procedure and treatment not carried out because of patient's decision for other reasons; M16.12 Unilateral primary osteoarthritis, left hip; Z99.81 Dependence on supplemental oxygen; Z87.11 Personal history of peptic ulcer disease; Z95.5 Presence of coronary angioplasty implant and graft; I25.2 Old myocardial infarction; Z79.82 Long term (current) use of aspirin; Z79.899 Other long term (current) drug therapy; Z91.030 Bee allergy status; Z87.891 Personal history of nicotine dependence; Z82.49 Family history of ischemic heart disease and other diseases of the circulatory system; Z90.49 Acquired absence of other specified parts of digestive tract; Z91.19 Patient's noncompliance with other medical treatment and regimen; Z86.14 Personal history of Methicillin resistant Staphylococcus aureus infection; Z86.010 Personal history of colon polyps; Z79.51 Long term (current) use of inhaled steroids; Z85.038 Personal history of other malignant neoplasm of large intestine; Z82.5 Family history of asthma and other chronic lower respiratory diseases; Z83.79 Family history of other diseases of the digestive system

== ENCOUNTER 2019-09-17 10:55 | Inpatient (IN) | payer OTHER, SELFPAY ==
[~2019-09-17] VITALS: Ht 180.3 cm; Wt 109.5 kg
--- NOTE | ~2019-09-17 | OP ---
[address] [address] OPERATIVE REPORT Name: LELE NOLAN Mahad Room: [address] IN M.R.#: [id number] Admission: 09/17/19 Attend Phys: Nathanael Hernandez MD Discharge: Date of : 40 Report #: [id number] THIS REPORT FOR: //name// cc: Nghia Díaz MD, Matthew W. MD ~ THIS REPORT FOR: //name// CC: Nathanael Meehan MD DATE OF SERVICE: 09/19/2019 REFERRING PHYSICIANS: Dr. Arjun Agrawal, Dr. Nathanael Hernandez, Dr. Brent Meehan. PREOPERATIVE DIAGNOSES: Recurrent small-bowel obstruction and sigmoid colon stricture. POSTOPERATIVE DIAGNOSES: Diffuse metastatic adenocarcinoma of the colon with colonic and small-bowel obstruction, peritoneal metastasis and omental metastasis. PROCEDURE: Exploratory laparotomy with peritoneal biopsy and loop ileostomy. SURGEON: Facundo Rajput DO PROTECTOR PLATE ATTACHER: Albert Fay DO, PGY-IV, resident. SECOND BENEFITS CONSULTANT: Student, Dr. Kiran Vasquez. ANESTHESIA: General endotracheal. ESTIMATED BLOOD LOSS: Less than 100 mL. COMPLICATIONS: None. DESCRIPTION OF PROCEDURE: After obtaining proper consents and discussing risks and complications with the patient, he was taken to the operating room, laid in the supine position, administered general endotracheal anesthetic. He was then prepped and draped in the usual sterile fashion. A timeout was performed. We confirmed the appropriate patient and procedure. Preoperative antibiotics had been given. SCDs were in place. All necessary equipment was within the operating room. We then made a midline [place] [address] OPERATIVE REPORT Name: LELE NOLAN Room: [address] IN [facility].#: [id number] Admission: 09/17/19 Attend Phys: Nathanael Hernandez MD Discharge: Date of : 40 Report #: [id number] patient's umbilicus. This was carried down through the skin into the subcutaneous tissue using electrocautery for hemostasis. Once the fascia was encountered, it was incised along the midline, grasped and elevated with Marcelina clamps. We then sharply opened the peritoneum using Metzenbaum scissors. Once within the peritoneal cavity, I extended the peritoneal opening for the entire length of the fascial opening. We immediately identified a firm, white, very suspicious-appearing mass in the omentum, also could palpate peritoneal seeding all the way down in the pelvis and along the right and left upper abdomen. Once this was done and we opened the entire incision, I was then able to explore the abdomen and noted there to be a mass in the distal sigmoid colon with multiple other masses along the descending colon. There were also peritoneal and mesenteric masses within the loops of small bowel. There was also an area of the distal small bowel that was densely adherent to a mass that appeared to be starting from the transverse colon and this was completely obstructed. We ran the entire small bowel back to the ligament of Treitz and then after quite some time of exploring the abdomen, we elected to do a palliative loop ileostomy. We brought up a portion of the most distal nonobstructed small bowel and brought it through the abdominal wall to the right of the midline. We placed a bridge underneath this. We then again explored the abdomen to assure there were no bowel injuries. Prior to doing all this, we also took a biopsy of a large mass of the peritoneum and sent it to our pathologist who came back after frozen section and revealed that this was adenocarcinoma, most likely consistent with the patient's previous colon carcinoma. Once the loop was brought out, we then closed the peritoneum and fascia together using a running #1 looped PDS suture. The subcutaneous tissues were then closed using 3-0 Vicryl suture. Skin was closed using bruna. We then matured the loop ileostomy in a Zeny fashion making a transverse incision in the ileum and then using 2-0 Vicryl suture to mature it. Stoma appliance was then placed. The patient was then awakened in the operating room and transported to the recovery room in stable condition. Sponge, needle and instrument counts were all correct at the end of the procedure. By: [id number] [id number] Arnol Rajput DO /marta
[~2019-09-17 10:55] MED LIST changes: +LIPITOR40 MG PO; +MURO-128 5% OPH15 M1 RT. EYE
[2019-09-17 10:56] VITALS: BP 110/60
[2019-09-17 11:23] LABS: ABSOLUTE BASOPHILS 0.1 thou/uL (0.0-0.2); ABSOLUTE EOSINOPHILS 0.1 thou/uL (0.0-0.7); ABSOLUTE MONOCYTES 0.5 thou/uL (0.0-1.2); ABSOLUTE NEUTROPHILS 9.4 thou/uL (1.6-8.1); BASOPHILS 0.5 %; EOSINOPHILS 0.9 %; HEMATOCRIT 39.7 % (42.0-52.0); HEMOGLOBIN 13.3 gm/dL (14.0-18.0); LYMPHOCYTES 9.4 %; MCH 28.6 pg (26.0-34.0); MCHC 33.6 g/dL (28.0-37.0); MCV 85.3 fL (80.0-100.0); MONOCYTES 4.8 %; MPV 9.1 fl. (7.2-11.1); NUCLEATED RBCS 0 /100WBC; PLATELET COUNT* 291 thou/uL (150-400); POLYS 84.4 %; RBC 4.66 mil/uL (4.50-6.00); RDW-CV 14.2 % (10.5-14.5); WBC 11.1 thou/uL (4.0-11.0)
[2019-09-17 11:41] LABS: ALBUMIN 3.7 g/dL (3.4-5.0); CALCIUM 9.1 mg/dL (8.5-10.1); CREATININE 1.2 mg/dL (0.6-1.3); POTASSIUM 4.6 mmol/L (3.5-5.1); TOTAL BILIRUBIN 0.4 mg/dL (<0.1-1.0); TOTAL PROTEIN 7.9 g/dL (6.4-8.2)
[2019-09-17 13:39] LABS: URINE BILIRUBIN NEGATIVE (Negative); URINE BLOOD NEGATIVE (Negative); URINE CLARITY CLEAR; URINE COLOR YELLOW; URINE GLUCOSE-RANDOM NEGATIVE (Negative); URINE KETONES NEGATIVE (Negative); URINE LEUKOCYTES-REFLEX TRACE (Negative); URINE NITRITE-REFLEX NEGATIVE (Negative); URINE PROTEIN NEGATIVE (Negative); URINE SPECIFIC GRAVITY <= 1.005 (1.005-1.030); URINE UROBILINOGEN 0.2 E.U./dl (0.2-1.0)
[2019-09-17 13:57] LABS: BACTERIA-REFLEX 1-9 Few /HPF (None Seen); CASTS None Seen /LPF (None Seen); CRYSTALS None Seen /LPF (None Seen); SQUAMOUS 0-3 Few /LPF (0-3); URINE RBC 0-2 Rare /HPF (0-2); URINE WBC-REFLEX 0-5 Rare /HPF (0-5)
[2019-09-17 15:42] VITALS: BP 109/73
[2019-09-17 15:50] VITALS: BP 122/71
[2019-09-17 20:00] VITALS: BP 149/72
[2019-09-18 04:04] LABS: HEMATOCRIT 34.3 % (42.0-52.0); MCH 28.5 pg (26.0-34.0); MCV 86.3 fL (80.0-100.0); MPV 8.7 fl. (7.2-11.1); RBC 3.98 mil/uL (4.50-6.00); RDW-CV 14.1 % (10.5-14.5); WBC 8.8 thou/uL (4.0-11.0)
[2019-09-18 04:07] LABS: HEMOGLOBIN 11.3 gm/dL (14.0-18.0)
[2019-09-18 04:44] LABS: CALCIUM 7.8 mg/dL (8.5-10.1); CREATININE 1.1 mg/dL (0.6-1.3); PHOSPHORUS* 3.8 mg/dL (2.5-4.9); POTASSIUM 4.8 mmol/L (3.5-5.1); TOTAL BILIRUBIN 0.4 mg/dL (<0.1-1.0); TOTAL PROTEIN 6.5 g/dL (6.4-8.2)
[2019-09-18 08:18] VITALS: BP 128/64
--- NOTE | 2019-09-18 11:14 | EKG ---
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1940 Requested By: Justin Villarreal Order Number: [id number] MD: Nikita Swartz Measurements Intervals [place] Rate: 69 P: 29 MT: 184 QRS: -48 QRSD: 90 T: 68 QT: 417 QTc: 447 Interpretive Statements Sinus rhythm Abnormal R-wave progression, late transition Inferior infarct, old Low voltage Compared to ECG 09/02/2019 16:57:40 Myocardial infarct finding now present Electronically Signed On 09-18-2019 11:13:18 DIRECTOR OF SUSTAINABLE DESIGN by iNkita Swartz [email or web address] <ELECTRONICALLY SIGNED> By: Nikita Swartz MD, FAC 09/18/19 1113 1142 1142 Nikita Swartz MD, FAC /EPI
[2019-09-18 13:46] LABS: APTT 30.5 Seconds (25.0-31.3); INR 1.1; PROTIME 11.2 Seconds (9.20-11.50)
[2019-09-18 20:30] VITALS: BP 161/74
[2019-09-19] VITALS (13 sets, daily range): BP systolic 116–161; BP diastolic 67–94
[2019-09-19 04:08] LABS: ABSOLUTE EOSINOPHILS 0.2 thou/uL (0.0-0.7); ABSOLUTE LYMPHOCYTES 1.9 thou/uL (0.8-5.3); ABSOLUTE MONOCYTES 0.6 thou/uL (0.0-1.2); ABSOLUTE NEUTROPHILS 3.8 thou/uL (1.6-8.1); BASOPHILS 0.5 %; EOSINOPHILS 3.8 %; HEMATOCRIT 31.2 % (42.0-52.0); HEMOGLOBIN 10.4 gm/dL (14.0-18.0); LYMPHOCYTES 29.1 %; MCH 28.8 pg (26.0-34.0); MCHC 33.4 g/dL (28.0-37.0); MCV 86.1 fL (80.0-100.0); MONOCYTES 9.3 %; NUCLEATED RBCS 0 /100WBC; PLATELET COUNT* 206 thou/uL (150-400); POLYS 57.3 %; RBC 3.62 mil/uL (4.50-6.00); RDW-CV 14.1 % (10.5-14.5); WBC 6.6 thou/uL (4.0-11.0)
[2019-09-19 04:10] LABS: CALCIUM 8.1 mg/dL (8.5-10.1); POTASSIUM 4.1 mmol/L (3.5-5.1)
[2019-09-20] VITALS (14 sets, daily range): BP systolic 99–146; BP diastolic 48–77
[2019-09-20 04:07] LABS: HEMATOCRIT 36.3 % (42.0-52.0); HEMOGLOBIN 11.8 gm/dL (14.0-18.0); MCH 28.5 pg (26.0-34.0); MCHC 32.7 g/dL (28.0-37.0); MCV 87.2 fL (80.0-100.0); MPV 8.7 fl. (7.2-11.1); RBC 4.16 mil/uL (4.50-6.00); RDW-CV 14.1 % (10.5-14.5); WBC 12.6 thou/uL (4.0-11.0)
[2019-09-20 04:19] LABS: CALCIUM 7.8 mg/dL (8.5-10.1); CREATININE 1.1 mg/dL (0.6-1.3); MAGNESIUM 1.7 mg/dL (1.8-2.4); POTASSIUM 4.8 mmol/L (3.5-5.1)
[2019-09-21 03:53] LABS: HEMATOCRIT 29.9 % (42.0-52.0); MCHC 33.5 g/dL (28.0-37.0); MCV 86.7 fL (80.0-100.0); MPV 8.9 fl. (7.2-11.1); RBC 3.45 mil/uL (4.50-6.00); RDW-CV 13.9 % (10.5-14.5); WBC 8.7 thou/uL (4.0-11.0)
[2019-09-21 03:58] LABS: CALCIUM 7.8 mg/dL (8.5-10.1); CREATININE 1.2 mg/dL (0.6-1.3)
[2019-09-21 07:50] VITALS: BP 112/86
[2019-09-21 16:00] VITALS: BP 148/72
[2019-09-21 19:40] VITALS: BP 160/70
[2019-09-22 04:07] LABS: CALCIUM 7.7 mg/dL (8.5-10.1); CREATININE 0.8 mg/dL (0.6-1.3); MAGNESIUM 1.7 mg/dL (1.8-2.4); POTASSIUM 3.7 mmol/L (3.5-5.1)
[2019-09-22 16:00] VITALS: BP 117/66
[2019-09-22 21:00] VITALS: BP 157/73
[2019-09-23 08:30] VITALS: BP 145/69
--- NOTE | 2019-09-23 12:07 | PATH ---
[place] [address] PATHOLOGY RPT PROCEDURE Name: OBINNA DAVIS Room: [address] IN M.R.#: [id number] Admission: 09/17/19 Date of : 40 Discharge: Report #: [id number] Path Case #: [id number] [facility] Accession Number: [id number] . 01 Material submitted: . peritoneum - PERITONEAL MASS - FS . 01 Clinical history: . Abdominal pain. . 02 Frozen section diagnosis: . FROZEN SECTION DIAGNOSIS (Dr. Rah Mercado) . (Peritoneal mass): - Adenocarcinoma, typical of colorectal primary, with prominent extracellular mucinous component. . Results are relayed directly to Dr. Rajput in the operating room and a note is entered into the medical record. . Frozen section intraoperative consultation performed at [facility], [address] [place] [address]. . FROZEN SECTION INTRAOPERATIVE GROSS DESCRIPTION Received fresh in the operating room accompanied by a label marked "Obinna Davis., peritoneal mass" is an irregular segment of hemorrhagic soft tissue with a partial smooth surface which measures 1.9 x 1.[address] Rajput demonstrates this to have come from the anterior peritoneal wall surface and notes this patient has multiple large masses in the colon and mesentery, and patient has a history of colonic adenocarcinoma in the past and requests intraoperative evaluation. The specimen is serially cross sectioned and approximately half the tissues are submitted for frozen studies with the remainder of that tissue frozen submitted in cassette A1 and the remainder of the entire specimen submitted in cassette A2. (MUNA:subway operator; 09/19/2019) STEVEN/ANGELLA . 02 Diagnosis: Peritoneal mass: - MODERATELY DIFFERENTIATED ADENOCARCINOMA WITH PROMINENT EXTRACELLULAR MUCINOUS COMPONENT, TYPICAL OF COLORECTAL PRIMARY, INVOLVING FIBROFATTY TISSUE. SEE COMMENT. (MUNA:zack; 09/22/2019) MBR 09/23/2019 1022 Local . 02 Comment: [place] [address] PATHOLOGY RPT PROCEDURE Name: OBINNA DAVIS Room: [address] IN [facility]#: [id number] Admission: 09/17/19 Date of : 40 Discharge: Report #: [id number] Path Case #: [id number] This patient previously had a right colon resection around 09/04/2017 which showed moderately differentiated ulcerated colonic adenocarcinoma showing transmural invasion to involve inked free serosal surface, 4 pericolic tumor deposits and at least 2/10 lymph nodes with metastatic adenocarcinoma. MMR/MSI testing showed all 4 proteins (MLH1, MSH2, MSH6, and PMS2) preserved ([id number]). (MUNA:zack; 09/22/2019) . 02 Electronically signed: . Rah Mercado MD, Pathologist NPI- [id number] . 01 Gross description: . SEE FROZEN SECTION FOR GROSS DESCRIPTION SYC/QTP 09/22/2019 1629 Local . 02 Pathologist provided ICD-10: C48.2, Z85.038 . 02 CPT . 344847, [id number] Performed at: [address] [facility], [place] [id number] MD Efrain Del Rosario MD Phone: [phone] Performed at: 02 [facility] [address] [place] , [place], [place] [id number] MD Rah Mercado MD Phone: [phone]
[2019-09-23 16:00] VITALS: BP 164/81
[2019-09-23 21:00] VITALS: BP 141/96
[2019-09-24 09:30] VITALS: BP 128/71
[2019-09-24] MEDS ORDERED: OXYCODONE HCL 55 MG PO (13:06)
[2019-09-24 13:37] VITALS: BP 128/71
== END 2019-09-24 17:15 | disposition hospice, home (50) | DRG 330 ==
LOC: M.ERS 10:55 → M.3W 13:34 → M.TBA-ER 13:34 → M.3W 15:52 → M.ICU 09-19 17:50 → M.3W 09-20 12:13
PROVIDERS: Family Medicine; Surgery; ADMIT Internal Medicine
PROC: 0DBW0ZX Excision of Peritoneum, Open Approach, Diagnostic (ICD-10-PCS; principal; 2019-09-19)
PROC: 0D1B0Z4 Bypass Ileum to Cutaneous, Open Approach (ICD-10-PCS; principal; 2019-09-19)
DX: C19 Malignant neoplasm of rectosigmoid junction (principal); K56.699 Other intestinal obstruction unspecified as to partial versus complete obstruction; C78.6 Secondary malignant neoplasm of retroperitoneum and peritoneum; R71.0 Precipitous drop in hematocrit; Z83.79 Family history of other diseases of the digestive system; M16.12 Unilateral primary osteoarthritis, left hip; M47.9 Spondylosis, unspecified; J44.9 Chronic obstructive pulmonary disease, unspecified; E78.5 Hyperlipidemia, unspecified; F41.1 Generalized anxiety disorder; F32.9 Major depressive disorder, single episode, unspecified; G47.00 Insomnia, unspecified; I10 Essential (primary) hypertension; K59.09 Other constipation; Z79.51 Long term (current) use of inhaled steroids; I25.10 Atherosclerotic heart disease of native coronary artery without angina pectoris; Z53.29 Procedure and treatment not carried out because of patient's decision for other reasons; Z51.5 Encounter for palliative care; F41.0 Panic disorder [episodic paroxysmal anxiety]; I25.2 Old myocardial infarction; Z95.5 Presence of coronary angioplasty implant and graft; Z79.899 Other long term (current) drug therapy; Z79.82 Long term (current) use of aspirin; Z91.030 Bee allergy status; Z90.49 Acquired absence of other specified parts of digestive tract; Z82.49 Family history of ischemic heart disease and other diseases of the circulatory system; Z83.6 Family history of other diseases of the respiratory system; Z87.891 Personal history of nicotine dependence; Z87.11 Personal history of peptic ulcer disease; Z99.81 Dependence on supplemental oxygen; Z86.14 Personal history of Methicillin resistant Staphylococcus aureus infection; Z86.010 Personal history of colon polyps